=== PATIENT | male | born 1980 | race African-American/Black ===

== ENCOUNTER 2017-11-03 11:56 | Inpatient (IN) | payer OTHER ==
[2017-11-03] MEDS ORDERED: Amiodarone HCl 150 MG, Admixture Fee 1 EACH in Dextrose 5% in Water 100 ML IVPB SCH ×3 (12:15)
[2017-11-03] MEDS ORDERED: Amiodarone In Dextrose 200 ML IVPB SCH (12:15)
[2017-11-03] MEDS ORDERED: Amiodarone HCl 450 MG, Admixture Fee 1 EACH in Dextrose 5% in Water 250 ML IVPB SCH ×3 (12:30)
[2017-11-03 12:46] LABS: #Eosinphils 0.3 thou/uL (0.0-0.7); #Lymphocytes 2.1 thou/uL (1.20-3.40); #Monocytes 0.9 thou/uL (0.11-0.59); #Neutrophils 3.7 thou/uL (1.40-6.50); %Basophils 0.6 % (0.0-1.0); %Eosinophils 4.5 % (0.0-10.0); %Monocytes 12.9 % (0.0-10.0); Mean Corpuscular HGB CONC 32.8 g/dL (32.0-36.0); Mean Corpuscular Hemoglobin 30.6 pg (27.0-31.0); Mean Corpuscular Volume 93.5 fl (80.0-94.0); Mean Platelet Volume 7.3 fL (7.4-10.4); Platelet Count 319 thou/uL (130-400); RBC Distribution Width 13.2 % (11.5-14.5); Red Blood Cell (RBC) Count 4.56 mill/uL (4.70-6.10)
--- NOTE | 2017-11-03 12:57 | RAD ---
CHEST 1 VIEW: HISTORY: Chest pain. COMPARISON: Chest 1 view 03/13/17. FINDINGS: Exam is limited due to technique. No focal airspace consolidation, pneumothorax, or effusion. IMPRESSION: No acute intrathoracic abnormality. POS: [facility]
[2017-11-03 13:09] LABS: Troponin I 0.011 ng/mL (< 0.028)
[2017-11-03 13:13] LABS: ALT (SGPT) 20 U/L (8-55); AST (SGOT) 29 U/L (5-34); Albumin 4.2 g/dL (3.5-5.0); Alkaline Phosphatase 59 U/L (40-150); Anion Gap 15 mmol/L (10-20); BUN (Urea Nitrogen) 38 mg/dL (8.9-20.6); Bilirubin, Total 0.8 mg/dL (0.2-1.2); CK (CPK) 589 U/L (30-200); Calc. Creatinine Clearance 0 mL/min (70-130); Calcium 10.5 mg/dL (7.8-10.44); Carbon Dioxide 27 mmol/L (22-29); Chloride 98 mmol/L (98-107); Estimated GFR-MDRD 57; Globulin 3.6 g/dL (2.4-3.5); Glucose 127 mg/dL (70-105); Potassium 3.9 mmol/L (3.5-5.1); Protein, Total 7.8 g/dL (6.0-8.3); Sodium 136 mmol/L (136-145)
[2017-11-03 13:19] LABS: Digoxin 0.71 ng/mL (0.8-2.0)
[2017-11-03 15:20] LABS: Amphetamine Not Detected (NotDetected); Barbiturates Screen Not Detected (NotDetected); Benzodiazepine Screen Not Detected (NotDetected); Cocaine Metabolite Screen Not Detected (NotDetected); Medtox Control Line Valid? VALID (VALID); Medtox Reader # READER 4; Methadone Not Detected (NotDetected); Methamphetamine Not Detected (NotDetected); Opiate Screen Not Detected (NotDetected); Oxycodone Screen Not Detected (NotDetected); Phencyclidine (PCP) Not Detected (NotDetected); THC/Cannabinoid Screen Not Detected (NotDetected); Tricyclic Screen Not Detected (NotDetected)
[2017-11-03] MEDS ORDERED: Milk Of Magnesia 30 ML UDCUP PO PRN (15:29)
[2017-11-03] MEDS ORDERED: Acetaminophen 325 MG TAB PO PRN (15:29)
[2017-11-03] MEDS ORDERED: Mag-Al 1200 mg/1200 mg/30 ML UDCUP PO PRN (15:29)
[2017-11-03 15:37] VITALS: BMI 47.2
--- NOTE | 2017-11-03 16:27 | HP ---
PRIMARY CARE PHYSICIAN: Dr. Jhonny Olmedo. CHIEF COMPLAINT: Chest pain and palpitations. HISTORY OF PRESENT ILLNESS: Mr. 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 He says this was diagnosed about a year and a half ago. Tra renee was doing fine until recently when he began having noticing that his blood pressure was running joanna y low when he checked it on his blood pressure machine and he also noted that his heart rate seemed t o be fast and regular. He then began having palpitations and feeling a sharp pain in the left side o f his chest. He rated it at about 9/10. He says these pains last anywhere from 2-3 minutes. There were nonradiating. He was having some shortness of breath associated with it, but no nausea, no vomi ting associated. He came to the emergency room where he was found to have a sinus rhythm but with qu ite a few PVCs and bigeminy and for this reason, he is being placed in observation. Currently, ioana olguin's heart rate is noted to jump up with just very minimal exertion up into the 120 range and then it quickly falls back to normal. When asked what his last ejection fraction is, he says he does not kn ow. He is currently enrolled in a medical study for Entresto where he is blinded to what his echo re sults and other treatments; however, he does know the dose of the Entresto that he is on. REVIEW OF SYSTEMS: CONSTITUTIONAL: There have been no fevers, chills. No night sweats, no weight l oss. HEENT: No headaches. He has had some dizziness, slight feeling lightheaded. No sore throat, no rhinorrhea, no neck pain, no adenopathy. PULMONARY: No hemoptysis, no cough, no wheezing. CARDI OVASCULAR: As of history of present illness. He has noted increasing orthopnea where he says when tra renee lays flat he does feel short of breath. He has also noted increasing lower extremity edema. GASTR OINTESTINAL: He denies any nausea, no vomiting, no change in bowels. GENITOURINARY: No urinary geovani quency, hematuria, no hesitancy. NEUROLOGIC: No focal weakness, numbness, no seizures. PSYCHIATRIC : No symptoms of anxiety or depression. SKIN AND INTEGUMENT: No skin changes. No rash. 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 He says isabella t he does not have hypertension, although this is listed in his chart. He is very frustrated with th is and once this removed from his record. PAST SURGICAL HISTORY: He has had shoulder surgery, hernia surgery, retina blastoma surgery as well as a heart catheterization. He does not know the results of this because he says it was under unusua l circumstances at [facility] where they actually denied him a heart catheterization. ALLERGIES: PENICILLIN, MORPHINE and SULFA. SOCIAL HISTORY: He is a nonsmoker and nondrinker. He does not have any children. He is single. FAMILY HISTORY: Negative for any inheritable diseases. CURRENT MEDICATIONS: Include Entresto 97/103 mg twice a day, digoxin 0.125 mg daily, furosemide 40 m g, he says this was recently increased to 2 tablets a day, allopurinol 300 mg daily, Trintellix 20 mg daily, metolazone 2.5 mg a day, carvedilol 25 mg twice daily, gabapentin 300 mg t.i.d. and aspirin 8 1 mg a day. PHYSICAL EXAMINATION: GENERAL: He is alert and oriented. He appears to be in no acute distress. VITAL SIGNS: Heart rate is ranging anywhere from 80 to 110-120, blood pressure was 104/70, respirato ry rate is 16, and he is afebrile. HEENT: Pupils are equal and reactive. Extraocular muscles are intact. His sclerae are anicteric. Pupils, on the right, he does have some irregularity in the size of the pupil as well; however, the e ye movements are symmetric. NECK: No adenopathy, no bruits. LUNGS: Clear to auscultation. There is no wheezing, no rales. CARDIOVASCULAR: He has a normal S1 and S2. I do not appreciate an S3 or S4. No murmurs, clicks or rubs. ABDOMEN: Soft, nontender, and nondistended. Positive for bowel sounds. No rebound, no guarding. EXTREMITIES: He has got 1+ pedal edema. NEUROLOGICAL: Exam is nonfocal. LABORATORY DATA AND IMAGING DATA: White blood cell count 7, hemoglobin 14, hematocrit is 42.6, and p latelet count is 319. Sodium 136, potassium 3.9, chloride is 98, CO2 is 27, BUN of 38, creatinine 1. 67, glucose is 127. Digoxin level 0.71. His EKG is sinus with frequent PVCs. ASSESSMENT AND PLAN: This is a pleasant 37-year-old gentleman that presents to the emergency room wi th palpitations. He also has a known history of cardiomyopathy as well as chronic kidney disease. H e will be placed in observation and monitored on telemetry. His potassium is normal, but we have not yet gotten a magnesium level. Therefore, we will check this and consult Cardiology for further conor mmendations. We will also continue him on his usual home medications as well as deep vein thrombosis and gastrointestinal prophylaxis.
[2017-11-03 17:07] LABS: Troponin I 0.016 ng/mL (< 0.028)
[2017-11-03 19:52] LABS: Troponin I Less than 0.010 ng/mL (< 0.028)
[2017-11-03] MEDS ORDERED: Potassium Chloride 20 MEQ TAB PO SCH (20:00)
[2017-11-03] MEDS: Gabapentin 300 MG CAP PO SCH (20:22)
[2017-11-03] MEDS: Carvedilol 25 MG TAB PO SCH (20:22)
[2017-11-03] MEDS: Allopurinol 300 MG TAB PO SCH (20:30)
[2017-11-03] MEDS: SACUBITRIL PO SCH (20:30)
[2017-11-03] MEDS: VALSARTAN PO SCH (20:30)
[2017-11-03] MEDS ORDERED: VALSARTAN PO SCH (21:00)
[2017-11-03] MEDS ORDERED: SACUBITRIL PO SCH (21:00)
--- NOTE | 2017-11-04 02:02 | HP ---
DATE OF ADMISSION: 11/03/2017 REASON FOR ADMISSION: Increasing palpitations, PVCs. HISTORY OF PRESENT ILLNESS: Mr. Sherly Izaguirre is a very pleasant 37-year-old gentleman, a patient of Dr. Vahid Levine. The patient was diagnosed with a cardiomyopathy in the past. He had been seen by Dr. Barrow, treated w ith carvedilol and later Entresto. The patient initially attempted apparently to wear a LifeVest, bu t we had a lot of trouble fitting him with a LifeVest. Therefore, ultimately he was treated medicall y and observed, the ventricular function improved. The patient had a stress test showing no focal ischemia. The patient was noted to have increasing fluid retention, recently seen by Dr. Levine in the office. He had increased amount of furosemide dose and also Zaroxolyn was added. The patient started having increasing amount of palpitations the last few days and finally came to the emergency room where he was found to have marked increase in PVCs. He was given a single dose of amiodarone and has been bro ught in for observation. The plan was to do an echocardiogram and if the ejection fraction is low, p roceed with defibrillator implant. PAST MEDICAL HISTORY: 1. Dilated cardiomyopathy. 2. Hypertension. PAST SURGICAL HISTORY: Shoulder surgery, hernia surgery. OUTPATIENT MEDICATIONS: 1. Aspirin. 2. Carvedilol 25 mg twice a day. 3. Digoxin 0.125 mg daily. 4. Entresto 49/51 twice daily. 5. Lasix. 6. Sertraline. 7. Aldactone 25 mg twice a day. ALLERGIES: AMOXICILLIN, PENICILLIN, and SULFA. SOCIAL HISTORY: History of substance abuse. Please see the chart. FAMILY HISTORY: Noncontributory. REVIEW OF SYSTEMS: Constitutional: He is very overweight. No weight loss. Vision: No changes. H earing: No changes. Pulmonary: No cough or wheezing. Gastrointestinal: No nausea, vomiting, or d iarrhea. Skin: No rashes. Neurologic: No unilateral weakness or numbness. Psychiatric: No unusu al depression or anxiety. Hematologic: No unusual bruising. Genitourinary: No burning with urinat ion. PHYSICAL EXAMINATION: GENERAL: This is a pleasant 6 feet 3 inches tall, 378 pounds gentleman, alert and oriented, very art iculate. VITAL SIGNS: His blood pressure is 123/62, pulse 67, now it is regular. EYES: Sclerae nonicteric. MOUTH: Mucous membranes moist. NECK: Supple, no lymphadenopathy. LUNGS: Clear, no wheezing, rales or rhonchi. ABDOMEN: Obese, nontender, no hepatosplenomegaly. EXTREMITIES: Warm, dry, no clubbing, no cyanosis. There is no edema. LABORATORY AND X-RAY FINDINGS: Creatinine level is 1.67, previously is 1.47. Calcium level is 10.5, which is elevated. BNP less than 10. Troponin less than 0.010. EKG, sinus rhythm with very frequent PVCs initially. ASSESSMENT: 1. Dilated cardiomyopathy. 2. History of hypertension. 3. Increased premature ventricular contractions, multiple, on admission EKG. 4. Probably somewhat volume depleted. PLAN: 1. Hold diuretic therapy. 2. Echocardiogram to be done. 3. We will give potassium. 4. Check magnesium level. If it is low, we will give magnesium. 5. Repeat echo. If the patient has a low ejection fraction, defibrillator implantation would be ind icated. Dr. Levine will resume care tomorrow.
[2017-11-04 05:31] LABS: Anion Gap 16 mmol/L (10-20); BUN (Urea Nitrogen) 34 mg/dL (8.9-20.6); Calc. Creatinine Clearance 147 mL/min (70-130); Calcium 9.8 mg/dL (7.8-10.44); Carbon Dioxide 26 mmol/L (22-29); Cardiac Risk 7.1 (Less than 4.5); Chloride 98 mmol/L (98-107); Cholesterol 240 mg/dl (< 200 Desired); Estimated GFR-MDRD 56; Glucose 158 mg/dL (70-105); HDL Cholesterol 34 mg/dL (>60 Neg Risk); LDL Cholesterol, Calculated 151 mg/dL; Potassium 3.9 mmol/L (3.5-5.1); Sodium 136 mmol/L (136-145); Triglycerides 273 mg/dL (Less than 150)
[2017-11-04] MEDS ORDERED: Furosemide 80 MG TAB PO SCH (07:30)
[2017-11-04] MEDS ORDERED: Metolazone 2.5 MG TAB PO SCH (08:30)
[2017-11-04] MEDS ORDERED: Allopurinol 300 MG TAB PO SCH (09:00)
[2017-11-04] MEDS: Digoxin 0.125 MG TAB PO SCH (09:23)
[2017-11-04] MEDS: Gabapentin 300 MG CAP PO SCH ×3 (09:23→20:27)
[2017-11-04] MEDS: Aspirin 81 mg Enteric Coated Tablet PO SCH (09:25)
[2017-11-04] MEDS: Enoxaparin Sodium 40 MG/0.4 ML SYRINGE SC SCH (09:25)
[2017-11-04] MEDS: Carvedilol 25 MG TAB PO SCH ×2 (09:25→20:27)
[2017-11-04] MEDS: VALSARTAN PO SCH ×2 (09:27→20:56)
[2017-11-04] MEDS: SACUBITRIL PO SCH ×2 (09:27→20:56)
--- NOTE | 2017-11-04 09:40 | PDOC.PN ---
- Subjective Encounter Start Date: 11/04/17 Encounter Start Time: 09:37 Patient seen and examined. No new complaints. No overnight events - Objective Resuscitation Status: Resuscitation Status FULL:Full Resuscitation MAR Reviewed: Yes Vital Signs & Weight: Vital Signs (12 hours) Temp Pulse Resp BP Pulse Ox 11/04/17 09:23 84 11/04/17 08:00 97.5 F L 71 18 153/87 H 96 11/04/17 03:50 97.5 F L 74 16 116/64 94 L Weight Weight 376 lb 4.8 oz I&O: 11/03/17 11/04/17 11/05/17 06:59 06:59 06:59 Intake Total 780 Output Total 0 Balance 780 Result Diagrams: 11/03/17 12:25 11/04/17 04:45 EKG Reviewed by me: Yes (Tele SR, int PVCs) Phys Exam - Physical Examination Constitutional: NAD Respiratory: no wheezing, no rales, no rhonchi, clear to auscultation bilateral Cardiovascular: RRR, no rub no heaves/pulsations Gastrointestinal: soft, non-tender, no distention, positive bowel sounds Musculoskeletal: no edema Neurological: non-focal, normal sensation, moves all 4 limbs Psychiatric: normal affect, A&O x 3 Dx/Plan - Plan DVT proph w/lovenox, DVT proph w/SCDs IMPRESSION: 1. Palpitations/Freq PVCs 2. Cardiomyopathy/Chronic systolic & diastolic heart failure - repeat Echo pending 3. Morbid Obesity BMI 47 4. HTN 5. CKD 3 PLAN: * Cont home meds * Resume Trintellix * Await Echo * Await Cardio input * Cont to monitor * Cont current meds as below * Diuretics on hold Review of Systems - Review of Systems Cardiovascular: negative: chest pain, palpitations, orthopnea, paroxysmal nocturnal dyspnea, edema, light headedness Gastrointestinal: negative: Nausea, Vomiting, Abdominal Pain, Diarrhea, Constipation, Melena, Hematochezia - Medications/Allergies Allergies/Adverse Reactions: Allergies Allergy/AdvReac Type Severity Reaction Status Date / Time amoxicillin Allergy Verified 05/26/16 08:40 morphine Allergy Verified 05/26/16 08:40 Penicillins Allergy Verified 05/26/16 08:40 Sulfa (Sulfonamide Allergy Verified 05/26/16 08:40 Antibiotics) Medications: Current Medications Acetaminophen (Tylenol) 650 mg PO Q4H PRN PRN Reason: Headache/Fever or Pain Al Hydroxide/Mg Hydroxide (Maalox) 15 ml PO Q4H PRN PRN Reason: Heartburn or Indigestion Allopurinol (Zyloprim) 300 mg PO 2100 [facility] Last Admin: 11/03/17 20:30 Dose: 300 mg Aspirin (Ecotrin) 81 mg PO DAILY [facility] Last Admin: 11/04/17 09:25 Dose: 81 mg Carvedilol (Coreg) 25 mg PO BID [facility] Last Admin: 11/04/17 09:25 Dose: 25 mg Digoxin (Lanoxin) 0.125 mg PO DAILY [facility] Last Admin: 11/04/17 09:23 Dose: 0.125 mg Enoxaparin Sodium (Lovenox) 40 mg SC 0900 [facility] Last Admin: 11/04/17 09:25 Dose: 40 mg Gabapentin (Neurontin) 300 mg PO TID [facility] Last Admin: 11/04/17 09:23 Dose: 300 mg Lactulose (Lactulose) 20 gm PO DAILYPRN PRN PRN Reason: Constipation Magnesium Hydroxide (Milk Of Magnesium) 30 ml PO DAILYPRN PRN PRN Reason: Constipation Non-Formulary Medication (Vortioxetine Hydrobromide [Trintellix]) 20 mg PO Q24H [facility] Sacubitril 49 Mg/Valsartan 51 Mg ( Entresto) Tablet 0 each PO BID [facility] Last Admin: 11/04/17 09:27 Dose: 1 each
[2017-11-04] MEDS: Vortioxetine Hydrobromide [Trintellix] 20 MG PO SCH (10:29)
--- NOTE | 2017-11-04 13:53 | PDOC.CTH ---
Cardiology Progress Note - Subjective he is doing well. He denies any more palpitations. - Objective Vital Signs Temp Pulse Resp BP Pulse Ox 11/04/17 11:48 98.1 F 74 16 128/62 94 L 11/04/17 09:23 84 11/04/17 08:00 97.5 F L 71 18 153/87 H 96 11/04/17 03:50 97.5 F L 74 16 116/64 94 L Weight 376 lb 4.8 oz 11/03/17 11/04/17 11/05/17 06:59 06:59 06:59 Intake Total 780 Output Total 0 Balance 780 - Physical Examination General/Neuro: alert & oriented x3, NAD Neck: no JVD present Lungs: CTA, unlabored respirations Heart: RRR Abdomen: NT/ND Extremities: other: (no edema.) - Telemetry Telemetry Rhythm: NSR, PVC's - Labs Result Diagrams: 11/03/17 12:25 11/04/17 04:45 Troponin/CKMB CK-MB (CK-2) 4.0 ng/mL (0-6.6) 11/03/17 12:25 Troponin I Less than 0.010 ng/mL (< 0.028) 11/03/17 19:21 - Assessment/Plan 1. Dilated CAm. 2. Non ischemic CM EF at 30-35% on echo done today. 3. HTN PLAN: - Class 1 recommendation for an AICD. I spoke with him and both his parents who were in the room today and they agree to proceed. Will put in an EP consult for Dr. Garcia. - Continue other meds. - He has noticed a little lightheadedness and a mils increase in his creatinine from his increased dose of lasix. He states he felt much better after doubling up on lasix and adding metolazone but he then started to feel a little lightheaded. Will ask him to go back to his regular lasix dose now but will give a little fluid back today. - Likely AICD in the next [address] Garcia.
[2017-11-04] MEDS ORDERED: Sodium Chloride 0.9% 1,000 ML IV SCH (14:00)
[2017-11-04] MEDS: Allopurinol 300 MG TAB PO SCH (20:27)
--- NOTE | 2017-11-04 23:25 | CON ---
ELECTROPHYSIOLOGY CONSULTATION REPORT DATE OF CONSULTATION: 11/04/2017 REFERRING PHYSICIAN: Dr. Levine. I am seeing Mr. Izaguirre at our [facility] telemetry floor as an electrophysiology loss prevention consultant. His problems are: 1. Chronic systolic congestive heart failure with nonischemic cardiomyopathy. A. History of reduced LVEF on an echo on 05/17/2016 at 15% to 20%. B. Follow up 2D echocardiogram on 11/03/2017 reveals 30% to 35%, mild MR, mild TR. 2. Two frequent PVCs and palpitations. 3. Morbid obesity with a BMI of 46. 4. History of polysubstance abuse in the past, none recent. 5. History of hypertension. ALLERGIES: AMOXICILLIN, MORPHINE, PENICILLIN and SULFA. MEDICATIONS: Prior to admission revealed aspirin, digoxin, furosemide, Entresto 97/103 one tablet tw ice a day, carvedilol 25 twice a day, allopurinol 300 mg daily, metolazone, gabapentin and Trintellix daily. SUBJECTIVE: Mr. Izaguirre is here with symptoms of palpitations. He was noted to have some increasing f luid retention recently followed by Dr. Levine as an outpatient, he was diuresed. Eventually, his PV Cs seem to have been increased quite a bit and hence was admitted for observation. He did not pass o ut, and he did not have any sustained palpitations or sustained tachyarrhythmias. No stroke-like sym ptoms. No neurological deficits. No fever, chills or cough. REVIEW OF SYSTEMS: Rest of the 12-point systems are otherwise unremarkable. PAST MEDICAL HISTORY: As above. SOCIAL HISTORY: The patient has history of polysubstance abuse, but current tox screen is all negati ve. FAMILY HISTORY: Negative for inheritable diseases. PAST SURGICAL HISTORY: Significant for shoulder surgery, hernia surgery, retinoblastoma, prior heart catheterizations, which was performed at [facility] in the past. OBJECTIVE: VITAL SIGNS: Blood pressure is 122/81, heart rate 78, respiration 16 and temperature 97.9 degrees Fa hrenheit. GENERAL: Alert and morbidly obese man in no apparent distress. NECK: Supple. Jugular veins difficult to visualize. CHEST: Coarse. No crackles. CARDIOVASCULAR: Heart sounds are distant. No murmur or gallop. Regular rate and rhythm. ABDOMEN: Benign and obese. No mass is detected. Bowel sounds are positive. EXTREMITIES: Lower extremities without edema, clubbing or cyanosis. SKIN: Without rash. DATABASE: EKGs reviewed reveals sinus rhythm, narrow complex QRS. No sinus ST-T changes. LABORATORY DATA: The toxicology panel is negative. Digoxin level is 0.71. Sodium 136, potassium 3. 9, BUN is 34 and creatinine is 1.68, increased from before. Although, his baseline was about 1.59 as well in the past. AST and ALT is 29 and 20. BNP is less than 10. Troponin level is 0.01. IMAGING DATA: Chest x-ray shows no acute intrathoracic abnormality. ASSESSMENT AND PLAN: Mr. Izaguirre is a pleasant 37-year-old -[place] man with; 1. History of chronic systolic congestive heart failure with nonischemic cardiomyopathy, had negativ e stress test in the past and possibly heart catheterization in other hospitals in the past as well. His left ventricular ejection fraction was severely reduced in a couple of years ago. Since then, guille renee was on adequate medical therapy. His ejection fraction improved, but still under 35%. We did discuss the significance of this finding. Also, his future arrhythmia risk has increased a ve ntricular ectopy as well. This could be possibly due to over diuresis, but also need to be monitored . I did discuss pros and cons about a prophylactic pacemaker defibrillator implant. He understands the potential benefit from this, but also we detailed the risk of infection, bleeding, pneumothorax, tamponade, device malfunctions, lead dislodgement, recalls, and appropriate shocks. After discussion , we agreed to proceed with the pacemaker defibrillator implant, possibly tomorrow. 2. Standard heart failure therapy, adequately controlled. 3. Mild dehydration, on fluid replantation. 4. Morbid obesity, weight loss advised.
[2017-11-05] MEDS ORDERED: Clindamycin/D5W 600 mg/50 ml Premix Bag ONE (06:57)
[2017-11-05] MEDS: Carvedilol 25 MG TAB PO SCH ×3 (08:05→20:26)
[2017-11-05] MEDS: Enoxaparin Sodium 40 MG/0.4 ML SYRINGE SC SCH (08:05)
[2017-11-05] MEDS: Digoxin 0.125 MG TAB PO SCH ×2 (08:05→11:01)
[2017-11-05] MEDS: Aspirin 81 mg Enteric Coated Tablet PO SCH ×2 (08:05→11:01)
[2017-11-05] MEDS: Gabapentin 300 MG CAP PO SCH ×3 (08:06→20:26)
[2017-11-05] MEDS ORDERED: Propofol 1,000 MG/100 ML VIAL IV ONE ×2 (08:19→08:41)
[2017-11-05] MEDS ORDERED: Midazolam HCl 2 mg/2 ml Vial ONE (08:19)
[2017-11-05] MEDS ORDERED: Lidocaine 2% Jelly 5 ML TUBE ONE (08:41)
[2017-11-05] MEDS ORDERED: Promethazine HCl 25 MG/ML VIAL SLOW IVP PRN (09:52)
[2017-11-05] MEDS ORDERED: Ondansetron HCl/PF 4 MG/2 ML Vial IVP PRN ×2 (09:52→12:32)
[2017-11-05] MEDS ORDERED: Fentanyl 100 MCG/2 ML VIAL ONE (10:05)
[2017-11-05] MEDS: SACUBITRIL PO SCH ×2 (11:00→20:26)
[2017-11-05] MEDS: VALSARTAN PO SCH ×2 (11:00→20:26)
[2017-11-05] MEDS: Vortioxetine Hydrobromide [Trintellix] 20 MG PO SCH (11:00)
[2017-11-05] MEDS ORDERED: Acetaminophen/Codeine 30-300mg Tablet PO PRN (11:45)
--- NOTE | 2017-11-05 12:09 | PDOC.PN ---
- Subjective Encounter Start Date: 11/05/17 Encounter Start Time: 11:30 Patient seen and examined. Some discomfort over the AICD site. No overnight events. s/p AICD - Objective Resuscitation Status: Resuscitation Status FULL:Full Resuscitation MAR Reviewed: Yes Vital Signs & Weight: Vital Signs (12 hours) Temp Pulse Resp BP Pulse Ox 11/05/17 11:01 77 11/05/17 10:46 97.5 F L 77 20 126/79 93 L 11/05/17 08:05 70 11/05/17 08:00 98 F 70 18 11/05/17 04:30 97.7 F 70 18 133/78 94 L Weight Weight 376 lb 4.8 oz I&O: 11/04/17 11/05/17 11/06/17 06:59 06:59 06:59 Intake Total 780 250 Output Total 0 Balance 780 250 Result Diagrams: 11/03/17 12:25 11/04/17 04:45 EKG Reviewed by me: Yes (Tele SR) Phys Exam - Physical Examination Constitutional: NAD Respiratory: no wheezing, no rhonchi Cardiovascular: RRR, no rub Gastrointestinal: soft, non-tender, positive bowel sounds Musculoskeletal: no edema Neurological: moves all 4 limbs Dx/Plan - Plan DVT proph w/SCDs IMPRESSION: 1. Palpitations/Freq PVCs 2. Cardiomyopathy/Chronic systolic & diastolic heart failure 3. Morbid Obesity BMI 47 4. HTN 5. CKD 3 PLAN: * s/p ACID * Cardio/EP following * Cont to monitor * DC planning * Cont current meds as below Review of Systems - Review of Systems Respiratory: SOB with Excertion. negative: Cough, Dry, Shortness of Breath, Hemoptysis, Pleuritic Pain, Sputum, Wheezing Cardiovascular: negative: chest pain, palpitations, orthopnea, paroxysmal nocturnal dyspnea, edema, light headedness Gastrointestinal: negative: Nausea, Vomiting, Abdominal Pain, Diarrhea, Constipation, Melena, Hematochezia - Medications/Allergies Allergies/Adverse Reactions: Allergies Allergy/AdvReac Type Severity Reaction Status Date / Time amoxicillin Allergy Verified 05/26/16 08:40 morphine Allergy Verified 05/26/16 08:40 Penicillins Allergy Verified 05/26/16 08:40 Sulfa (Sulfonamide Allergy Verified 05/26/16 08:40 Antibiotics) Medications: Current Medications Acetaminophen (Tylenol) 650 mg PO Q4H PRN PRN Reason: Headache/Fever or Pain Acetaminophen/Codeine Phosphate (Tylenol #3) 1 tab PO Q4H PRN PRN Reason: Mild Pain (1-3) Acetaminophen/Codeine Phosphate (Tylenol #3) 2 tab PO Q4H PRN PRN Reason: Moderate Pain (4-6) Al Hydroxide/Mg Hydroxide (Maalox) 15 ml PO Q4H PRN PRN Reason: Heartburn or Indigestion Allopurinol (Zyloprim) 300 mg PO 2100 [facility] Last Admin: 11/04/17 20:27 Dose: 300 mg Aspirin (Ecotrin) 81 mg PO DAILY [facility] Last Admin: 11/05/17 11:01 Dose: 81 mg Carvedilol (Coreg) 25 mg PO BID [facility] Last Admin: 11/05/17 11:01 Dose: 25 mg Digoxin (Lanoxin) 0.125 mg PO DAILY [facility] Last Admin: 11/05/17 11:01 Dose: 0.125 mg Doxycycline Hyclate (Vibramycin) 100 mg PO BID [facility] Stop: 11/12/17 09:01 Enoxaparin Sodium (Lovenox) 40 mg SC 0900 [facility] Last Admin: 11/05/17 08:05 Dose: Not Given Gabapentin (Neurontin) 300 mg PO TID [facility] Last Admin: 11/05/17 11:01 Dose: 300 mg Lactulose (Lactulose) 20 gm PO DAILYPRN PRN PRN Reason: Constipation Magnesium Hydroxide (Milk Of Magnesium) 30 ml PO DAILYPRN PRN PRN Reason: Constipation Ondansetron HCl (Pacu-Zofran) 4 mg IVP ONE PRN PRN Reason: Nausea/Vomiting Stop: 11/05/17 12:52 Vortioxetine Hydrobromide [ Trintellix] 20 Mg 0 each PO Q24HR [facility] Last Admin: 11/05/17 11:00 Dose: 1 each Sacubitril 49 Mg/Valsartan 51 Mg ( Entresto) Tablet 0 each PO BID [facility] Last Admin: 11/05/17 11:00 Dose: 1 each Promethazine HCl (Pacu-Phenergan) 6.25 mg SLOW IVP ONE PRN PRN Reason: Nausea/Vomiting Stop: 11/05/17 12:52 Sodium Chloride (Flush - Normal Saline) 10 ml IVF PRN PRN PRN Reason: Saline Flush
--- NOTE | 2017-11-05 12:20 | PDOC.CTH ---
Cardiology Progress Note - Subjective He had his AICD earlier today and is doing well. No other issues. - Objective Vital Signs Temp Pulse Resp BP Pulse Ox 11/05/17 11:01 77 11/05/17 10:46 97.5 F L 77 20 126/79 93 L 11/05/17 08:05 70 11/05/17 08:00 98 F 70 18 11/05/17 04:30 97.7 F 70 18 133/78 94 L Weight 376 lb 4.8 oz 11/04/17 11/05/17 11/06/17 06:59 06:59 06:59 Intake Total 780 250 Output Total 0 Balance 780 250 - Physical Examination General/Neuro: alert & oriented x3, NAD Neck: no JVD present Lungs: unlabored respirations Heart: RRR Abdomen: NT/ND Extremities: + edema B (Trace) - Telemetry Telemetry Rhythm: NSR - Labs Result Diagrams: 11/03/17 12:25 11/04/17 04:45 Troponin/CKMB CK-MB (CK-2) 4.0 ng/mL (0-6.6) 11/03/17 12:25 Troponin I Less than 0.010 ng/mL (< 0.028) 11/03/17 19:21 - Assessment/Plan 1. Dilated CAm. 2. Non ischemic CM EF at 30-35% on echo done today. 3. HTN 4. S/P AICD placement. PLAN: - Continue current meds. - May discharge home at any point from cardiac perspective.
[2017-11-05] MEDS ORDERED: Promethazine HCl 25 MG/ML VIAL IM/IV PRN (12:32)
[2017-11-05] MEDS ORDERED: Non-Formulary Medication 1 EACH PO PRN (12:32)
[2017-11-05] MEDS: Acetaminophen/Codeine 30-300mg Tablet PO PRN ×2 (12:51→20:25)
--- NOTE | 2017-11-05 13:52 | RAD ---
CHEST ONE VIEW: History: Defibrillator placement. Comparison: 11-03-17 FINDINGS: Cardiac silhouette is magnified and enlarged. Pulmonary vasculature is engorged with bilateral perihi lar infiltrates and reticular nodular interstitial prominence. Mediastinum is midline with a dual-jose d left subclavian cardiac electronic device. Leads overlie the right atrium and right ventricle. No e vidence of pneumothorax. IMPRESSION: 1. Left subclavian cardiac defibrillator is in good radiographic position. 2. Pulmonary vascular congestion. POS: [facility]
[2017-11-05] MEDS ORDERED: PHENYLEPHRINE-NS 100 MCG/ML 10 ML SYRINGE ONE (14:40)
[2017-11-05] MEDS ORDERED: Propofol 200 MG/20 ML VIAL ONE (14:40)
[2017-11-05] MEDS ORDERED: Glycopyrrolate 0.2 MG/ML 5 ML SYRINGE ONE (14:40)
[2017-11-05] MEDS ORDERED: ePHEDrine/0.9% NaCl/PF SYRINGE 50 mg/10 ml ONE (14:40)
[2017-11-05] MEDS ORDERED: Iopamidol 370 76% 50 ML VIAL FS ONE (15:59)
[2017-11-05] MEDS: Allopurinol 300 MG TAB PO SCH (20:26)
[2017-11-05] MEDS: Doxycycline 100 MG CAP PO SCH (20:29)
[2017-11-06 07:53] VITALS: TEMP 98.3
[2017-11-06] MEDS: Aspirin 81 mg Enteric Coated Tablet PO SCH (09:07)
[2017-11-06] MEDS: Doxycycline 100 MG CAP PO SCH (09:07)
[2017-11-06] MEDS: Carvedilol 25 MG TAB PO SCH (09:07)
[2017-11-06] MEDS: Enoxaparin Sodium 40 MG/0.4 ML SYRINGE SC SCH (09:07)
[2017-11-06] MEDS: Gabapentin 300 MG CAP PO SCH (09:07)
[2017-11-06] MEDS: Digoxin 0.125 MG TAB PO SCH (09:07)
[2017-11-06] MEDS: SACUBITRIL PO SCH (09:08)
[2017-11-06] MEDS: VALSARTAN PO SCH (09:08)
[2017-11-06] MEDS: Vortioxetine Hydrobromide [Trintellix] 20 MG PO SCH (09:09)
--- NOTE | 2017-11-06 10:50 | DIS ---
DATE OF ADMISSION: 11/03/2017 DATE OF DISCHARGE: 11/06/2017 DISCHARGE DISPOSITION: Home. FOLLOWUP: 1. Follow up with primary care physician and Dr. Jhonny Olmedo next week as scheduled. 2. Follow up with Electrophysiology and Cardiology in 2 weeks. 3. Heart Failure Clinic will be arranged. ALLERGIES: The patient is allergic to AMOXICILLIN, MORPHINE, PENICILLIN, and SULFA. The patient was seen and examined on the day of discharge, denies any new complaints. DISCHARGE MEDICATIONS: Aspirin 81 mg daily, Carvedilol 25 mg twice a day, digoxin 0.125 mg daily, do xycycline 100 mg p.o. b.i.d. for AICD antibiotic prophylaxis, Lasix 40 mg daily, gabapentin 300 mg th ree times daily, metolazone 2.5 mg daily, Entresto 97/103 one tablet b.i.d., Trintellix 20 mg daily, Tylenol #3 for pain secondary to AICD. INPATIENT CONSULTANTS: 1. Cardiology, Dr. Levine. 2. Electrophysiology, Dr. Garcia. BRIEF HOSPITAL COURSE: Patient is a 37-year-old male with chronic systolic and diastolic heart failu re, who presented to the hospital with chest discomfort along with palpitations. Please refer to the history and physical dated 11/03/[address] Mancini for further details. The patient was admitted to the hospital with a diagnosis of chest discomfort, rule out acute coronar y syndrome. His serial cardiac enzymes were normal. His telemetry monitoring showed frequent PVCs. An echocardiogram was repeated that showed ejection fraction 30%-35% range with grade 1/3 diastolic dysfunction. Electrophysiology was consulted. He underwent AICD placement yesterday. He has been c leared by Cardiology and Electrophysiology for discharge. He will continue doxycycline for prophylax is. FINAL DIAGNOSES: 1. Chest discomfort, acute coronary syndrome ruled out. 2. Palpitations with frequent PVCs, probably secondary to cardiomyopathy. The patient underwent AIC D placement. 3. Chronic systolic and diastolic heart failure, compensated. 4. Morbid obesity with a BMI of 47. 5. Hypertension. 6. Chronic kidney disease stage 3. 7. Dyslipidemia. Fasting lipid profile showed triglycerides 273 with cholesterol 240, LDL 151, HDL 34. Lifestyle modification was emphasized. Plan of care was discussed with the patient in detail. He stated understanding.
[2017-11-06 14:31] VITALS: BP 133/64
== END 2017-11-06 13:02 | disposition home or self-care (01) | DRG 227 ==
LOC: ERS 11:56 → OBSVTOIN 13:34 → 2SW 13:34
PROVIDERS: ADMIT Internal Medicine; ATTEND Internal Medicine
PROC: 0JH609Z Insertion of Cardiac Resynchronization Defibrillator Pulse Generator into Chest Subcutaneous Tissue and Fascia, Open Approach (ICD-10-PCS; principal; 2017-11-05)
PROC: 02HK3KZ Insertion of Defibrillator Lead into Right Ventricle, Percutaneous Approach (ICD-10-PCS; 2017-11-05)
PROC: 02H63KZ Insertion of Defibrillator Lead into Right Atrium, Percutaneous Approach (ICD-10-PCS; 2017-11-05)
DX: I42.0 Dilated cardiomyopathy (principal); I13.0 Hypertensive heart and chronic kidney disease with heart failure and stage 1 through stage 4 chronic kidney disease, or unspecified chronic kidney disease; I50.42 Chronic combined systolic (congestive) and diastolic (congestive) heart failure; N18.3 Chronic kidney disease, stage 3 (moderate); E66.01 Morbid (severe) obesity due to excess calories; Z68.42 Body mass index [BMI] 45.0-49.9, adult; E78.5 Hyperlipidemia, unspecified; I49.3 Ventricular premature depolarization; E86.9 Volume depletion, unspecified; E86.0 Dehydration; Z87.01 Personal history of pneumonia (recurrent)
CPT/HCPCS: 33249; 36005; 36415; 71045; 75820; 80048; 80053; 80061; 80162; 80306; 82553; 83735; 83880; 84484; 85025; 93005; 93306; 93641; 93798; 94760; 96374; C1721; C1895; C1898; J0282; J1650; J2250; J2704; J3010; J3490; J7070

== ENCOUNTER 2018-01-01 13:45 | Outpatient (CLI) | payer OTHER | END 2018-01-01 13:46 | disposition home or self-care (01) | LOC: DTY/OP 13:45 | PROVIDERS: ATTEND Surgery | DX: E66.01 Morbid (severe) obesity due to excess calories (principal) | CPT/HCPCS: 97802 ==

== ENCOUNTER 2018-01-20 10:03 | Outpatient (CLI) | payer OTHER, SELFPAY | END 2018-01-20 10:04 | disposition home or self-care (01) | LOC: DTY/OP 10:03 | PROVIDERS: ATTEND Surgery | DX: E66.01 Morbid (severe) obesity due to excess calories (principal) | CPT/HCPCS: 97802 ==

== ENCOUNTER 2018-02-19 13:03 | Outpatient (CLI) | payer OTHER ==
--- NOTE | 2018-02-19 13:55 | RAD ---
CHEST PA AND LATERAL TWO VIEWS: HISTORY: A 38-year-old male with a history of dyspnea. COMPARISON: 11/05/2017 FINDINGS: Heart size is within normal limits. Left ICD. No confluent pneumonia, overt edema, pleural effusion , or other acute process. IMPRESSION: No significant acute intrathoracic disease. Stable from prior study. POS: [facility]
== END 2018-02-19 13:04 | disposition home or self-care (01) ==
LOC: RAD 13:03
PROVIDERS: ATTEND Internal Medicine Critical Care Medicine
DX: R06.00 Dyspnea, unspecified (principal)
CPT/HCPCS: 71046

== ENCOUNTER 2018-02-26 13:56 | Outpatient (CLI) | payer OTHER | END 2018-02-26 13:57 | disposition home or self-care (01) | LOC: DTY/OP 13:56 | PROVIDERS: ATTEND Surgery | DX: E66.01 Morbid (severe) obesity due to excess calories (principal) | CPT/HCPCS: 97802 ==

== ENCOUNTER 2018-03-25 12:53 | Outpatient (CLI) | payer OTHER | END 2018-03-25 12:54 | disposition home or self-care (01) | LOC: DTY/OP 12:53 | PROVIDERS: ATTEND Surgery | DX: E66.01 Morbid (severe) obesity due to excess calories (principal) | CPT/HCPCS: 97802 ==

== ENCOUNTER 2018-04-01 19:30 | Outpatient (CLI) | payer OTHER | END 2018-04-01 19:31 | disposition home or self-care (01) | LOC: SLEEPLAB 19:30 | PROVIDERS: ATTEND Internal Medicine Critical Care Medicine | DX: G47.33 Obstructive sleep apnea (adult) (pediatric) (principal) | CPT/HCPCS: 95811 ==

== ENCOUNTER 2018-04-27 11:28 | Outpatient (CLI) | payer OTHER | END 2018-04-27 11:29 | disposition home or self-care (01) | LOC: DTY/OP 11:28 | PROVIDERS: ATTEND Surgery | DX: E66.01 Morbid (severe) obesity due to excess calories (principal); Z98.84 Bariatric surgery status | CPT/HCPCS: 97802 ==

== ENCOUNTER 2018-07-01 15:15 | Outpatient (CLI) | payer OTHER ==
[2018-07-01 15:53] LABS: #Basophils 0.1 thou/uL (0.0-0.2); #Eosinphils 0.5 thou/uL (0.0-0.7); #Lymphocytes 2.8 thou/uL (1.20-3.40); #Monocytes 1.3 thou/uL (0.11-0.59); #Neutrophils 6.6 thou/uL (1.40-6.50); %Basophils 0.7 % (0.0-1.0); %Eosinophils 4.4 % (0.0-10.0); %Lymphocytes 25.2 % (21.0-51.0); %Monocytes 11.4 % (0.0-10.0); %Neutrophils 58.3 % (42.0-75.0); Hemoglobin 13.3 g/dL (14.0-18.0); Mean Corpuscular HGB CONC 33.9 g/dL (32.0-36.0); Mean Corpuscular Hemoglobin 30.7 pg (27.0-31.0); Mean Corpuscular Volume 90.4 fL (78.0-98.0); Mean Platelet Volume 7.8 fL (7.4-10.4); Platelet Count 305 thou/uL (130-400); RBC Distribution Width 13.4 % (11.5-14.5); Red Blood Cell (RBC) Count 4.33 mill/uL (4.70-6.10); White Blood Cell (WBC) Count 11.3 thou/uL (4.8-10.8)
[2018-07-01 16:05] LABS: Hemoglobin A1c 6.3 % (4.0-6.0)
[2018-07-01 16:13] LABS: ALT (SGPT) 22 U/L (8-55); AST (SGOT) 29 U/L (5-34); Albumin 4.2 g/dL (3.5-5.0); Alkaline Phosphatase 68 U/L (40-150); Anion Gap 16 mmol/L (10-20); BUN (Urea Nitrogen) 28 mg/dL (8.9-20.6); Bilirubin, Direct 0.1 mg/dL (0.1-0.3); Bilirubin, Total 0.6 mg/dL (0.2-1.2); Calc. Creatinine Clearance 0 mL/min (70-130); Carbon Dioxide 27 mmol/L (22-29); Chloride 96 mmol/L (98-107); Estimated GFR-MDRD 57; Globulin 3.3 g/dL (2.4-3.5); Glucose 91 mg/dL (70-105); Potassium 3.9 mmol/L (3.5-5.1); Protein, Total 7.5 g/dL (6.0-8.3); Sodium 135 mmol/L (136-145)
[2018-07-01 16:52] LABS: Uric Acid 6.9 mg/dL (3.5-7.2)
--- NOTE | 2018-07-01 17:15 | RAD ---
CHEST ONE VIEW 07/01/18 HISTORY: Preoperative exam. COMPARISON: 02/19/18. FINDINGS: Stable left sided defibrillator. Normal cardiac silhouette. The pulmonary vessels are slightly promin ent. No consolidation or mass. No pneumothorax or osseous abnormalities. IMPRESSION: No acute cardiopulmonary process. POS: [facility]
== END 2018-07-01 15:16 | disposition home or self-care (01) ==
LOC: LABBT 15:15
PROVIDERS: ATTEND Surgery
DX: Z01.818 Encounter for other preprocedural examination (principal); M1A.09X0 Idiopathic chronic gout, multiple sites, without tophus (tophi); R59.0 Localized enlarged lymph nodes; E66.01 Morbid (severe) obesity due to excess calories
CPT/HCPCS: 71046; 80053; 80076; 83036; 84550; 85025; 93005; 93010

== ENCOUNTER 2018-07-02 15:15 | Inpatient (IN) | payer OTHER ==
[2018-07-01 15:47] VITALS: BMI 50.1
[2018-07-09] MEDS ORDERED: Levofloxacin 500 mg/D5W 100 ml Premix Bag ONE (06:43)
[2018-07-09] MEDS ORDERED: Heparin 5,000 UNITS/ML VIAL ONE (06:43)
[2018-07-09] MEDS ORDERED: Bupivacaine/Epinephrine 0.25% 30 ML VIAL ONE (06:52)
== END 2018-07-09 08:05 | disposition home or self-care (01) | DRG 641 ==
LOC: SURG A 07-09 05:41
PROVIDERS: ADMIT Surgery; ATTEND Surgery
DX: E66.01 Morbid (severe) obesity due to excess calories (principal); I42.9 Cardiomyopathy, unspecified; I50.20 Unspecified systolic (congestive) heart failure; Z53.8 Procedure and treatment not carried out for other reasons; Z95.810 Presence of automatic (implantable) cardiac defibrillator; Z68.43 Body mass index [BMI] 50.0-59.9, adult; F32.9 Major depressive disorder, single episode, unspecified; I11.0 Hypertensive heart disease with heart failure; Z86.79 Personal history of other diseases of the circulatory system; Z87.891 Personal history of nicotine dependence; Z88.1 Allergy status to other antibiotic agents; Z88.5 Allergy status to narcotic agent; Z88.0 Allergy status to penicillin; Z88.2 Allergy status to sulfonamides
CPT/HCPCS: J1644; J1956

== ENCOUNTER 2018-07-15 07:47 | Inpatient (IN) | payer OTHER ==
[2018-07-15] MEDS ORDERED: Heparin 5,000 UNITS/ML VIAL ONE (08:34)
[2018-07-15] MEDS ORDERED: Levofloxacin 500 mg/D5W 100 ml Premix Bag ONE (08:34)
[2018-07-15] MEDS ORDERED: Fentanyl 100 MCG/2 ML VIAL ONE ×2 (08:46→12:39)
[2018-07-15] MEDS ORDERED: Midazolam HCl 2 mg/2 ml Vial ONE (09:19)
[2018-07-15] MEDS ORDERED: diphenhydrAMINE 50 MG/ML VIAL IVP PRN (11:44)
[2018-07-15] MEDS ORDERED: Ondansetron HCl/PF 4 MG/2 ML Vial IVP PRN ×3 (11:44→12:33)
[2018-07-15] MEDS ORDERED: Dextrose 5% in Water 1,000 ML IV PRN (11:44)
[2018-07-15] MEDS ORDERED: hydrALAZINE 20 MG/ML VIAL SLOW IVP PRN (11:44)
[2018-07-15] MEDS ORDERED: Dextrose 50% Abboject 50 ML SYRINGE SLOW IVP PRN (11:44)
[2018-07-15] MEDS ORDERED: Hydrocodone-Acetamin 15 ML UDCUP PO PRN (11:44)
[2018-07-15] MEDS ORDERED: Promethazine HCl 25 MG/ML VIAL IM PRN ×3 (11:44→12:33)
--- NOTE | 2018-07-15 12:04 | OP ---
DATE OF PROCEDURE: 07/15/2018 PREOPERATIVE DIAGNOSIS: Morbid obesity. SURGEON: Jimmy Stacy M.D. PROCEDURE PERFORMED: Laparoscopic sleeve gastrectomy and esophagogastroscopy. INDICATIONS: A 38-year-old male, morbidly obese, who has attempted multiple weight loss programs wit hout success. FINDINGS: A 38-Syriac bougie used. PROCEDURE IN DETAIL: After informed consent was obtained, the patient was taken to the operating alec m and given general endotracheal anesthesia, placed in the supine position. Abdomen was prepped and draped in usual fashion. Local anesthesia infiltrated subcutaneously and deep and a 12-mm incision w as performed approximately 8 inches above the xiphoid slightly to the left. Veress needle inserted. Drop test performed. Pneumoperitoneum was created to a volume of 2 liters of carbon dioxide. Utili zing a bladeless 12-mm trocar and 0-degree laparoscope, direct visual entry into the abdominal cavity was performed. Pneumoperitoneum was created to a pressure of 15 mmHg and the patient placed in stee p reverse Trendelenburg position. Jocelyn liver retractor inserted. Left lobe of liver retracted superiorly. Pylorus identified. A 12-mm port placed on the right beneath it and two 12s placed left subcostal. The omentum was taken off the greater curvature 5 cm from the pylorus utilizing the Liga Sure. Short gastrics divided with the LigaSure and the left crura defined with the LigaSure. A 38-F rench bougie inserted, directed into the antrum. The linear 60 mm green load stapler used to divide the antrum to the bougie. Another green load was used along the bougie due to thickness of the stoma ch. Then, 2 golds were used and then a couple of blues at the end. Intraoperative endoscopy was the n performed. The video endoscope inserted under direct vision and advanced into the sleeve. The sta ple line inspected. There is no bleeding. Staple line then tested by inflating the stomach with pre ssurized air under water. There was no air leak. Stomach decompressed. Scope removed. The remnant stomach removed from the abdomen through the left lateral port site. The fascia closed with 0 Vicry l suture and the GraNee needle. Trocars and retractors removed. The skin closed with interrupted 4- 0 Rapide. Dermabond applied. The patient tolerated the procedure well and was transferred to [facility] in good condition. Sponge and needle count verified correct x2.
[2018-07-15] MEDS ORDERED: Bupivacaine/Epinephrine 0.25% 30 ML VIAL ONE (12:27)
[2018-07-15] MEDS ORDERED: Albuterol Sulfate HFA (OR ONLY) ONE (12:27)
[2018-07-15] MEDS ORDERED: Promethazine HCl 25 MG/ML VIAL SLOW IVP PRN (12:32)
[2018-07-15] MEDS ORDERED: Ketorolac Tromethamine 30 MG/ML VIAL IVP PRN (12:32)
[2018-07-15] MEDS ORDERED: Meperidine HCl/PF 25 MG/ML VIAL SLOW IVP PRN (12:32)
[2018-07-15] MEDS ORDERED: HYDROmorphone 2 MG/ML VIAL SLOW IVP PRN (12:32)
[2018-07-15] MEDS ORDERED: Naloxone HCl 0.4 mg/ml Vial IV PRN (12:33)
[2018-07-15] MEDS ORDERED: fentaNYL Citrate/PF 2,000 MCG in Sodium Chloride 0.9% 60 ML IV PRN (12:33)
[2018-07-15] MEDS ORDERED: diphenhydrAMINE 25 MG CAP PO PRN (12:33)
[2018-07-15] MEDS ORDERED: Zolpidem Tartrate 5 MG TAB PO PRN (12:33)
--- NOTE | 2018-07-15 13:19 | RAD ---
AP VIEW CHEST: 07/15/2018 HISTORY: Central line placement. Evaluate for position and possible pneumothorax. COMPARISON: 11/05/2017 FINDINGS: AP view chest demonstrates placement of a right jugular central line, with the distal tip overlying t he superior vena cava. No evidence of post procedure pneumothorax is seen. There is a dual-lead intracardiac defibrillator. Mild cardiomegaly and pulmonary vascular congestion is seen. An area of scar is seen in the left lung base. IMPRESSION: Recently placed right jugular central line is in good position. POS: [facility]
[2018-07-15 14:31] VITALS: BMI 39.5
[2018-07-15] MEDS: D5 1/2 NS w/20 mEq KCL 1,000 ML IV SCH ×2 (15:05→20:50)
[2018-07-15] MEDS ORDERED: Ondansetron HCl/PF 4 MG/2 ML Vial ONE (15:12)
[2018-07-15] MEDS ORDERED: ePHEDrine/0.9% NaCl/PF SYRINGE 50 mg/10 ml ONE (15:12)
[2018-07-15] MEDS ORDERED: Succinylcholine Chloride 20 MG/ML 10 ml SYRINGE FS ONE (15:12)
[2018-07-15] MEDS ORDERED: Glycopyrrolate 0.2 MG/ML 5 ML SYRINGE ONE (15:12)
[2018-07-15] MEDS ORDERED: PHENYLEPHRINE-NS 100 MCG/ML 10 ML SYRINGE ONE (15:12)
[2018-07-15] MEDS ORDERED: Lidocaine 1% PF 5 ML VIAL ONE (15:12)
[2018-07-15] MEDS ORDERED: PROVENTIL INHALER 6.7 G (200 INHALATIONS) ONE (15:12)
[2018-07-15] MEDS ORDERED: PROPOFOL 200 MG/20 ML VIAL ONE (15:12)
[2018-07-15] MEDS ORDERED: Metoclopramide HCl 10 MG/2 ML VIAL ONE (15:12)
[2018-07-15] MEDS: Acetaminophen 1,000 MG in Premix Bag 1 BAG IVPB PRN (17:10)
[2018-07-15] MEDS: Ketorolac Tromethamine 30 MG/ML VIAL IVP PRN (17:11)
[2018-07-15] MEDS: diphenhydrAMINE 50 MG/ML VIAL IM/IV PRN (21:36)
[2018-07-16] MEDS: diphenhydrAMINE 50 MG/ML VIAL IM/IV PRN ×3 (01:53→09:55)
[2018-07-16] MEDS: Ketorolac Tromethamine 30 MG/ML VIAL IVP PRN (01:59)
[2018-07-16] MEDS: Acetaminophen 1,000 MG in Premix Bag 1 BAG IVPB PRN (01:59)
[2018-07-16] MEDS: Cepastat Lozenges 1 LOZ PO PRN ×5 (02:36→12:33)
[2018-07-16] MEDS: D5 1/2 NS w/20 mEq KCL 1,000 ML IV SCH ×3 (04:44→16:51)
[2018-07-16 05:50] LABS: Anion Gap 10 mmol/L (10-20); BUN (Urea Nitrogen) 18 mg/dL (8.9-20.6); Calc. Creatinine Clearance 117 mL/min (70-130); Calcium 8.8 mg/dL (7.8-10.44); Carbon Dioxide 26 mmol/L (22-29); Chloride 100 mmol/L (98-107); Estimated GFR-MDRD 55; Glucose 96 mg/dL (70-105); Potassium 4.3 mmol/L (3.5-5.1); Sodium 132 mmol/L (136-145)
[2018-07-16 05:52] LABS: #Eosinphils 0.1 thou/uL (0.0-0.7); #Lymphocytes 1.9 thou/uL (1.20-3.40); #Monocytes 1.1 thou/uL (0.11-0.59); #Neutrophils 8.7 thou/uL (1.40-6.50); %Eosinophils 0.7 % (0.0-10.0); %Lymphocytes 16.5 % (21.0-51.0); %Monocytes 9.2 % (0.0-10.0); %Neutrophils 73.6 % (42.0-75.0); Hemoglobin 12.4 g/dL (14.0-18.0); Mean Corpuscular Hemoglobin 29.9 pg (27.0-31.0); Mean Corpuscular Volume 93.4 fL (78.0-98.0); Mean Platelet Volume 7.4 fL (7.4-10.4); Platelet Count 296 thou/uL (130-400); RBC Distribution Width 13.1 % (11.5-14.5); Red Blood Cell (RBC) Count 4.15 mill/uL (4.70-6.10); White Blood Cell (WBC) Count 11.8 thou/uL (4.8-10.8)
[2018-07-16] MEDS ORDERED: Enoxaparin Sodium 40 MG/0.4 ML SYRINGE SC SCH (09:00)
[2018-07-16] MEDS ORDERED: Pantoprazole 40 MG VIAL IVP SCH (09:00)
--- NOTE | 2018-07-16 10:18 | RAD ---
LIMITED SINGLE SIP UPPER GI WITH : HISTORY: Status post vertical sleeve gastrectomy. FINDINGS: There is passage of contrast from the esophagus into the gastric remnant an duodenum. No high-grade obstruction or contrast extravasation is seen. IMPRESSION: No evidence of obstruction or leak. POS: [facility]
[2018-07-16] MEDS ORDERED: DC PCA Order Set 1 EACH FS ONE (11:54)
[2018-07-16] MEDS ORDERED: Hydrocodone-Acetamin 15 ML UDCUP PO PRN (11:54)
[2018-07-16] MEDS ORDERED: GASTROGRAFIN 30 ML BOT ONE (14:56)
[2018-07-16] MEDS ORDERED: Gabapentin 300 MG CAP PO SCH (15:00)
[2018-07-16 15:38] VITALS: BP 129/73; TEMP 97.7
[2018-07-16] MEDS ORDERED: Carvedilol 25 MG TAB PO SCH (17:00)
[2018-07-16] MEDS ORDERED: Sacubitril 24.5 MG/Valsartan 25.5 MG TABLET PO SCH (21:00)
--- NOTE | 2018-07-17 00:38 | DIS ---
DISCHARGE DIAGNOSIS: Morbid obesity. PROCEDURES DURING ADMISSION: Laparoscopic sleeve gastrectomy, intraoperative esophagogastroscopy, po stoperative Gastrografin swallow. HOSPITAL COURSE: Patient was admitted, taken to the operating room and underwent sleeve gastrectomy. Postoperatively, he did well. Swallow was fine. He is tolerating liquids well. He is discharged home in good condition on hydrocodone, Zofran, as well as his usual medications with the exception, w here holding his Lasix and aspirin. He will follow up with me in 2 weeks.
[2018-07-17] MEDS ORDERED: Digoxin 0.125 MG TAB PO SCH (09:00)
== END 2018-07-16 17:55 | disposition home or self-care (01) | DRG 620 ==
LOC: SURG A 07:47
PROVIDERS: ADMIT Surgery; ATTEND Surgery
PROC: 0DB64Z3 Excision of Stomach, Percutaneous Endoscopic Approach, Vertical (ICD-10-PCS; principal; 2018-07-15)
DX: E66.01 Morbid (severe) obesity due to excess calories (principal); I50.22 Chronic systolic (congestive) heart failure; Z68.43 Body mass index [BMI] 50.0-59.9, adult; Z79.82 Long term (current) use of aspirin; I11.0 Hypertensive heart disease with heart failure; Z87.891 Personal history of nicotine dependence; F32.9 Major depressive disorder, single episode, unspecified; Z88.0 Allergy status to penicillin; Z88.2 Allergy status to sulfonamides
CPT/HCPCS: 71045; 74241; 80048; 85025; 88307; 88312; 94760; C9113; J0131; J1200; J1642; J1644; J1650; J1885; J1956; J2001; J2250; J2405; J2704; J2765; J3010; J7050

== ENCOUNTER 2018-10-09 10:27 | Outpatient (CLI) | payer OTHER ==
--- NOTE | 2018-10-09 13:49 | CT ---
CT ABDOMEN AND PELVIS WITH IV CONTRAST: Date: 10-09-18 Provided Clinical History: Abdominal pain. FINDINGS: The visualized lung bases are free of significant opacity. The liver, spleen, pancreas, kidneys and adrenal glands demonstrate an unremarkable CT appearance. Changes of gastric sleeve are demonstrated. There is no bowel dilatation, inflammatory fat stranding, free fluid, or lymph node enlargement appar ent. The osseous structures demonstrate no concerning osteoblastic or osteolytic lesions. IMPRESSION: No evidence for an acute process. POS: [facility]
== END 2018-10-09 10:28 | disposition home or self-care (01) ==
LOC: BICCT 10:27
PROVIDERS: ATTEND Surgery
DX: R10.9 Unspecified abdominal pain (principal)
CPT/HCPCS: 74177

== ENCOUNTER 2018-11-02 07:33 | Day surgery (SDC) | payer MEDICARE, MEDICAID ==
[2018-10-30 11:44] VITALS: BMI 40.0
--- NOTE | 2018-11-02 13:06 | OP ---
DATE OF PROCEDURE: 11/02/2018 PROCEDURE PERFORMED: Esophagogastroduodenoscopy (diagnostic). INDICATION FOR PROCEDURE: Midepigastric abdominal pain, the patient is status post sleeve gastrectomy in May of 2018. DESCRIPTION OF PROCEDURE: After the risks and benefits of the procedure were explained to the patient including risks of bleeding, infection, perforation, reactions to anesthesia, aspiration, and/or pain, informed consent was obtained. The patient was then taken to the endoscopy suite, where deep sedation was administered via propofol and anesthesia support. Once the adequate anesthesia was achieved, the standard gastroscope was introduced into the mouth with intubation of the esophagus, stomach, and proximal small intestine with the findings listed below. The patient tolerated the procedure well with no immediate perioperative complications. At the completion of the procedure, the patient was then taken to Day Stay in satisfactory condition. FINDINGS: Esophagus: 1. Normal-appearing mucosa was seen in the proximal, mid, and distal esophagus. There was no evidence of erosions, ulcerations, mass, lesions, or active/recent bleeding. Stomach: 1. Surgical change associated with the sleeve gastrectomy was seen upon entry into the stomach; however, normal-appearing mucosa was seen in the gastric cardia, fundus, body, and antrum. Retroflexion could not be performed due to the small nature of the gastric pouch and there was some mild narrowing of the gastric pouch at the level of the incisura, but was easily traversed with the standard gastroscope. There was no evidence of erosions, ulcerations, mass, lesions, overt stricture/stenoses. Duodenum: 1. Normal-appearing mucosa was seen in both the duodenal bulb and second portion of the duodenum. There was no evidence of erosions, ulcerations, mass, lesions, or active/recent bleeding. IMPRESSION: Surgical change associated with sleeve gastrectomy with no observed abnormalities on upper endoscopy today. RECOMMENDATIONS: 1. We would have the patient follow up with the bariatric surgeon for routine followup associated with his sleeve gastrectomy. 2. Pain control per Surgical Service, seeing how his pain is primarily centered around the surgical incision sites and negative upper endoscopy today. 3. We would have the patient to follow up in the GI clinic as needed. Job ID: [id number]
[2018-11-02] MEDS ORDERED: PHENYLEPHRINE-NS 100 MCG/ML 10 ML SYRINGE ONE (16:14)
[2018-11-02] MEDS ORDERED: PROPOFOL 200 MG/20 ML VIAL ONE (16:14)
[2018-11-02] MEDS ORDERED: Lidocaine 1% PF 5 ML VIAL ONE (16:14)
== END 2018-11-02 11:53 | disposition home or self-care (01) ==
LOC: SDC 07:33
PROVIDERS: ATTEND Internal Medicine
PROC: 0DJ08ZZ Inspection of Upper Intestinal Tract, Via Natural or Artificial Opening Endoscopic (ICD-10-PCS; principal; 2018-11-02)
DX: G89.18 Other acute postprocedural pain (principal); K21.9 Gastro-esophageal reflux disease without esophagitis; M19.90 Unspecified osteoarthritis, unspecified site; D64.9 Anemia, unspecified; F32.9 Major depressive disorder, single episode, unspecified; G47.30 Sleep apnea, unspecified; Z79.899 Other long term (current) drug therapy; Z90.3 Acquired absence of stomach [part of]; Z88.0 Allergy status to penicillin; Z88.1 Allergy status to other antibiotic agents; Z87.891 Personal history of nicotine dependence
CPT/HCPCS: J2001; J2704

== ENCOUNTER 2018-12-29 14:30 | Outpatient (CLI) | payer MEDICARE, MEDICAID ==
[~2018-12-29 14:30] MED LIST: Iopamidol 370 76% 100 ML VIAL ONE
--- NOTE | 2018-12-29 17:03 | CT ---
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 Retinoblastoma at age 4. Prese nts with headache. FINDINGS: Absence of right globe, replaced with 1.7 cm spherical dense prosthesis which is located asymmetrical ly in the superior medial corner of the right orbit. It deforms and displaces the right superior rect us/ levator palpebrae comple, and right superior ophthalmic vein, superiorly and laterally. Anterior to that, there is a crescentic, more superficial, anterior prosthesis. Between these two components, abutting the posterior surface of the crescentic anterior prosthesis, there is prominent, thick web-l jose angel disorganized cluster of soft tissue material. Among this, there is a tiny bubble of gas abutting the posterior surface of the anterior crescentic prosthesis. The anterior half of the right optic ner ve is absent. There is no asymmetry in the enhancement or contours of the cavernous sinuses bilateral ly. No suprasellar mass compressing the optic chiasm. The left orbit is normal. The frontal, sphenoid , and ethmoid sinuses are clear. Nasal cavity is clear. The inferior 10% of the maxillary sinuses are excluded from the field of view. The rest of the maxillary sinuses are clear. No osseous destructive lesion. IMPRESSION: 1. Status post enucleation of the right eye. 2. Two component right orbital prostheses. The spherical prosthesis is asymmetrically positioned at t he superomedial corner of the orbit, and it compresses, displaces, and distorts the right superior re ctus/levator palpebrae muscle complex and superior ophthalmic vein. 3. Prominent strands of web-like disorganized soft tissue density material, and a tiny focus of gas, abutting the posterior surface of the anterior component of the prosthesis. This could either represe nt severe scar tissue or cellulitis. POS: [facility]
== END 2018-12-29 14:31 | disposition home or self-care (01) ==
LOC: BICCT 14:30
DX: C69.61 Malignant neoplasm of right orbit (principal); Z98.890 Other specified postprocedural states
CPT/HCPCS: 70482; Q9967

== ENCOUNTER 2019-07-07 14:04 | Outpatient (CLI) | payer MEDICARE, MEDICAID ==
--- NOTE | 2019-07-07 15:19 | CT ---
CT ABDOMEN AND PELVIS WITH AND WITHOUT IV CONTRAST 07/07/2019 CLINICAL INFORMATION: Hematuria COMPARISON: 10/09/2018 Technique: Multiple contiguous axial CT images are obtained through the abdomen and pelvis with IV contrast. Cor onal reformatted images are provided. FINDINGS: Lower Chest: Minimal pleural-based nodular densities are seen in the posterior aspect of each lung ba se stable from prior exam may relate to focal areas of minimal pleural thickening. Partial visualization of AICD leads are again seen within the right atrial appendage and right ventricle. Vessels: Abdominal aorta is normal in caliber. Abdomen: Portal vein:Not well opacified but grossly appears patent. Gallbladder: Within normal limits for CT imaging. Liver: within normal limits. Spleen: within normal limits. Pancreas: within normal limits. Adrenals: within normal limits. Kidneys: within normal limits. No renal or ureteral calculi are seen bilaterally. No enhancing renal mass is identified. Right kidney is mildly rotated. Bowel: Postsurgical changes of the stomach are seen. The cecum extends medially and is seen within th e left mid abdomen. Appendix: Secondary to the cecum extending into the left mid abdomen, the appendix is located to the left of midline but is normal in caliber. Peritoneum: No ascites or free air; no fluid collection. Mesentery and Retroperitoneum: No enlarged mesenteric or retroperitoneal lymph nodes. Abdominal Wall: within normal limits. Pelvis: Reproductive Organs: No pelvic masses. Pelvis within normal limits. Bladder: Mostly decompressed but otherwise grossly within normal limits. Bones: Mild degenerative changes are seen in the spine. Subchondral cystic changes are seen in each a cetabulum. IMPRESSION: 1. No renal or ureteral calculi are seen bilaterally, and no enhancing renal mass is visualized. 2. Postsurgical change of the stomach. 3. The cecum extends across midline and is located in the left mid abdomen. The appendix is also in t he left abdomen and is normal in caliber.
== END 2019-07-07 14:05 | disposition home or self-care (01) ==
LOC: BICCT 14:04
PROVIDERS: ATTEND Physician Assistant
DX: R31.0 Gross hematuria (principal); Z98.890 Other specified postprocedural states
CPT/HCPCS: 74178

== ENCOUNTER 2019-11-20 22:20 | Emergency (ER) | payer MEDICARE, MEDICAID ==
[2019-11-20 23:25] LABS: Mean Corpuscular HGB CONC 33.7 g/dL (32.0-36.0); Mean Corpuscular Hemoglobin 31.4 pg (27.0-31.0); Mean Corpuscular Volume 93.1 fL (78.0-98.0); Mean Platelet Volume 7.3 fL (7.4-10.4); Platelet Count 226 thou/uL (130-400); RBC Distribution Width 11.2 % (11.5-14.5); Red Blood Cell (RBC) Count 4.79 mill/uL (4.70-6.10); White Blood Cell (WBC) Count 5.2 thou/uL (4.8-10.8)
[2019-11-20 23:39] LABS: ALT (SGPT) 32 U/L (8-55); AST (SGOT) 26 U/L (5-34); Albumin 4.2 g/dL (3.5-5.0); Alkaline Phosphatase 91 U/L (40-110); Anion Gap 11 mmol/L (10-20); BUN (Urea Nitrogen) 14 mg/dL (8.9-20.6); Bilirubin, Total 0.8 mg/dL (0.2-1.2); Calc. Creatinine Clearance 0 mL/min (70-130); Calcium 8.7 mg/dL (7.8-10.44); Carbon Dioxide 26 mmol/L (22-29); Chloride 103 mmol/L (98-107); Estimated GFR-MDRD 68; Globulin 2.6 g/dL (2.4-3.5); Glucose 91 mg/dL (70-105); Potassium 4.2 mmol/L (3.5-5.1); Protein, Total 6.8 g/dL (6.0-8.3); Sodium 136 mmol/L (136-145)
[2019-11-20 23:42] LABS: Band 5 % (5-11); Eosinophils 1 % (0-10); Lymphocytes 11 % (21-51); MDiff Complete? YES; Monocytes 18 % (0-10); Neutrophil 65 % (42-75)
--- NOTE | 2019-11-20 23:50 | RAD ---
Chest AP view INDICATION: Dizziness and stuttering speech COMPARISON: July 15, 2018 FINDINGS: Lungs:The lungs are clear Cardiac silhouette:The cardiomediastinal silhouette appears within normal limits. Pulmonary vasculature:Normal Pleural spaces:No pleural effusion or pneumothorax is demonstrated. Upper abdomen:No abnormality seen. Osseous structures: No acute osseous abnormality. Additional findings:Stable dual-lead AICD. IMPRESSION: No acute cardiopulmonary abnormality.
== END 2019-11-21 00:48 | disposition home or self-care (01) ==
LOC: ERS 22:20
DX: B34.9 Viral infection, unspecified (principal); I50.9 Heart failure, unspecified; Z87.01 Personal history of pneumonia (recurrent); Z87.891 Personal history of nicotine dependence; Z79.899 Other long term (current) drug therapy
CPT/HCPCS: 36415; 71045; 80053; 83880; 84484; 85025; 87804; 93005

== ENCOUNTER 2020-11-28 14:42 | Outpatient (CLI) | payer MEDICARE, OTHER ==
--- NOTE | 2020-11-28 15:48 | CT ---
CT HEAD WITHOUT IV CONTRAST COMPARISON: None HISTORY: Headache and left eye pain. Patient has history of removal right eye secondary to retinoblastoma. TECHNIQUE: Axial CT imaging at 5 mm intervals from vertex through skull base without contrast FINDINGS: There is no evidence of an acute infarction, hemorrhage, mass effect, or midline shift. No abnormal a reas of enhancement are seen after the administration of intravenous contrast. The ventricular system is normal in size, shape, and position. Right globe is absent with 2 separate right orbital prostheses present which are unchanged in appeara nce compared to CT orbits on 12/29/2018 with displacement of structures in the right globe as described on prior CT in addition to areas of linear stranding which are also stable. Visualized paranasal sinuses are clear. Opacification of several left mastoid air cells are present s uggesting mastoid effusions. Osseous structures appear intact.No suspicious lytic or sclerotic osseous lesion is identified within the calvarium. IMPRESSION: 1. No acute intracranial abnormality demonstrated. 2. Postoperative changes right orbit unchanged from CT on 12/29/2018. 3. Left mastoid effusions. This was also seen on CT orbits on 12/29/2018.
== END 2020-11-28 14:43 | disposition home or self-care (01) ==
LOC: BICCT 14:42
PROVIDERS: ATTEND Family Medicine
DX: H57.12 Ocular pain, left eye (principal); R51.9 Headache, unspecified; E66.01 Morbid (severe) obesity due to excess calories; H74.8X2 Other specified disorders of left middle ear and mastoid; Z90.01 Acquired absence of eye; Z85.840 Personal history of malignant neoplasm of eye; Z95.810 Presence of automatic (implantable) cardiac defibrillator
CPT/HCPCS: 70470; Q9967

== ENCOUNTER 2021-03-26 12:09 | Outpatient (CLI) | payer MEDICARE, OTHER | END 2021-03-26 12:10 | disposition home or self-care (01) | LOC: BICRAD 12:09 | PROVIDERS: ATTEND Nurse Practitioner Family | DX: M25.562 Pain in left knee (principal); M17.12 Unilateral primary osteoarthritis, left knee; M25.462 Effusion, left knee ==

== ENCOUNTER 2021-11-05 11:40 | Emergency (ER) | payer OTHER, MEDICARE, MEDICAID ==
[~2021-11-05 11:40] MED LIST changes: -Iopamidol 370 76% 100 ML VIAL ONE; +Iopamidol-370 76% 500 ML 1 ML ONE
[2021-11-05 12:22] LABS: #Basophils 0.1 thou/uL (0.0-0.2); #Eosinphils 0.3 thou/uL (0.0-0.7); #Lymphocytes 1.9 thou/uL (1.20-3.40); #Monocytes 0.7 thou/uL (0.11-0.59); %Basophils 1.4 % (0.0-1.0); %Eosinophils 4.8 % (0.0-10.0); %Lymphocytes 31.7 % (21.0-51.0); %Monocytes 11.1 % (0.0-10.0); Hemoglobin 14.6 g/dL (14.0-18.0); Mean Corpuscular HGB CONC 33.4 g/dL (32.0-36.0); Mean Corpuscular Hemoglobin 30.5 pg (27.0-31.0); Mean Corpuscular Volume 91.1 fL (78.0-98.0); Mean Platelet Volume 7.1 fL (7.4-10.4); Platelet Count 244 thou/uL (130-400); RBC Distribution Width 12.3 % (11.5-14.5); Red Blood Cell (RBC) Count 4.78 mill/uL (4.70-6.10); White Blood Cell (WBC) Count 5.9 thou/uL (4.8-10.8)
[2021-11-05] MEDS ORDERED: Ketorolac Tromethamine 30 MG/ML VIAL ONE (12:22)
[2021-11-05 12:41] LABS: Bilirubin Negative (Negative); Blood, Urine Negative (Negative); Clarity Clear (Clear); Glucose, Urine (Dipstick) Normal (Negative); Ketone, Urine Negative (Negative); Leukocyte Negative Leu/uL (Negative); Nitrite Negative (Negative); Protein, Urine (Dipstick) Negative (Neg-Trace); Specific Gravity, Urine 1.005 (1.002-1.036); Urobilinogen Normal mg/dL (Less than 2)
[2021-11-05 12:50] LABS: ALT (SGPT) 22 U/L (8-55); AST (SGOT) 29 U/L (5-34); Albumin 4.3 g/dL (3.5-5.0); Alkaline Phosphatase 117 U/L (40-110); Anion Gap 15 mmol/L (10-20); BUN (Urea Nitrogen) 12 mg/dL (8.9-20.6); Bilirubin, Total 0.7 mg/dL (0.2-1.2); Calc. Creatinine Clearance 0 mL/min (70-130); Calcium 9.4 mg/dL (7.8-10.44); Carbon Dioxide 28 mmol/L (22-29); Chloride 98 mmol/L (98-107); Glucose 106 mg/dL (70-105); Lipase 12 U/L (8-78); Potassium 3.8 mmol/L (3.5-5.1); Protein, Total 7.3 g/dL (6.0-8.3); Sodium 137 mmol/L (136-145)
[2021-11-05] MEDS ORDERED: Bacitracin 1 PK ONE (13:58)
[2021-11-05] MEDS ORDERED: Ondansetron PF 4 MG/2 ML Vial ONE (16:04)
[2021-11-05] MEDS ORDERED: Morphine 4 MG/ML VIAL ONE (16:04)
== END 2021-11-05 16:33 | disposition home or self-care (01) ==
LOC: ERS 11:40
DX: S16.1XXA Strain of muscle, fascia and tendon at neck level, initial encounter (principal); S00.81XA Abrasion of other part of head, initial encounter; M54.9 Dorsalgia, unspecified; Z87.891 Personal history of nicotine dependence; V69.40XA Driver of heavy transport vehicle injured in collision with unspecified motor vehicles in traffic accident, initial encounter
CPT/HCPCS: 70450; 71260; 72125; 74177; 80053; 81003; 83690; 85025; 96374; 96375; J1885; J2270; J2405; Q9967

== ENCOUNTER 2022-02-14 16:04 | Inpatient (IN) | payer MEDICARE, MEDICAID ==
[2022-02-14 17:07] LABS: #Eosinphils 0.3 thou/uL (0.0-0.7); #Lymphocytes 2.7 thou/uL (1.20-3.40); #Neutrophils 4.1 thou/uL (1.40-6.50); %Basophils 0.2 % (0.0-1.0); %Eosinophils 3.9 % (0.0-10.0); %Lymphocytes 33.1 % (21.0-51.0); %Monocytes 12.8 % (0.0-10.0); Hemoglobin 14.2 g/dL (14.0-18.0); Mean Corpuscular HGB CONC 33.3 g/dL (32.0-36.0); Mean Corpuscular Volume 93.1 fL (78.0-98.0); Mean Platelet Volume 7.2 fL (7.4-10.4); Platelet Count 303 thou/uL (130-400); RBC Distribution Width 11.9 % (11.5-14.5); Red Blood Cell (RBC) Count 4.58 mill/uL (4.70-6.10); White Blood Cell (WBC) Count 8.1 thou/uL (4.8-10.8)
[2022-02-14 17:26] LABS: ALT (SGPT) 23 U/L (8-55); AST (SGOT) 24 U/L (5-34); Albumin 4.3 g/dL (3.5-5.0); Alkaline Phosphatase 122 U/L (40-110); Anion Gap 17 mmol/L (10-20); BUN (Urea Nitrogen) 11 mg/dL (8.9-20.6); Bilirubin, Total 0.5 mg/dL (0.2-1.2); Calc. Creatinine Clearance 0 mL/min (70-130); Carbon Dioxide 28 mmol/L (22-29); Chloride 98 mmol/L (98-107); Globulin 3.1 g/dL (2.4-3.5); Glucose 98 mg/dL (70-105); Potassium 3.8 mmol/L (3.5-5.1); Protein, Total 7.4 g/dL (6.0-8.3); Sodium 139 mmol/L (136-145)
[2022-02-14] MEDS ORDERED: Aspirin 325 MG TAB ONE (17:47)
[2022-02-14] MEDS ORDERED: Nitroglycerin 2% Ointment 1 INCH/1 GM Packet ONE (17:47)
[2022-02-14] MEDS ORDERED: Ondansetron PF 4 MG/2 ML Vial ONE (17:47)
[2022-02-14] MEDS ORDERED: Nitroglycerin 0.4 MG TAB 1 EACH ONE (19:03)
[2022-02-14 20:08] VITALS: BMI 49.8
[2022-02-14] MEDS ORDERED: Dextrose 5% in Water 1,000 ML IV PRN (20:13)
[2022-02-14] MEDS ORDERED: Dextrose 50% Abboject 50 ML SYRINGE SLOW IVP PRN (20:13)
[2022-02-14] MEDS ORDERED: Ondansetron PF 4 MG/2 ML Vial IVP PRN (20:15)
[2022-02-14] MEDS ORDERED: Ondansetron ODT 4 MG TAB SL PRN (20:15)
[2022-02-14] MEDS ORDERED: Sodium Chloride 0.9% 1,000 ML IV SCH (20:15)
[2022-02-14] MEDS ORDERED: Acetaminophen 325 MG TAB PO PRN (20:15)
[2022-02-14] MEDS ORDERED: Carvedilol 6.25 MG TAB PO SCH (21:15)
[2022-02-14] MEDS ORDERED: Allopurinol 300 MG TAB PO SCH (21:15)
[2022-02-14] MEDS ORDERED: Amitriptyline HCl 25 MG TAB PO SCH (21:15)
[2022-02-14] MEDS ORDERED: Atorvastatin Calcium 20 MG TAB PO SCH (21:15)
[2022-02-14] MEDS ORDERED: Methocarbamol 500 MG TAB PO PRN (21:23)
[2022-02-14] MEDS ORDERED: Prazosin HCl 1 MG CAP PO SCH (21:30)
[2022-02-14] MEDS ORDERED: Lurasidone 20 MG TABLET PO SCH (21:30)
[2022-02-14] MEDS ORDERED: Furosemide 80 MG TAB PO SCH (21:30)
[2022-02-14] MEDS: Pantoprazole 40 MG VIAL IVP SCH (21:30)
[2022-02-14] MEDS ORDERED: busPIRone HCl 10 MG TAB PO SCH (21:30)
[2022-02-14] MEDS ORDERED: OXcarbazepine 300 MG TAB PO SCH (21:30)
[2022-02-14] MEDS ORDERED: Gabapentin 400 MG CAP PO SCH (22:00)
[2022-02-14] MEDS: ALPRAZolam 0.5 MG TAB PO PRN (22:31)
[2022-02-14 22:35] LABS: Troponin I Less than 0.010 ng/mL (< 0.028)
[2022-02-14 23:20] LABS: SARS-CoV-2 PCR by NAA Not Detected (NotDetected)
[2022-02-15] MEDS ORDERED: Nitroglycerin 0.4 MG TAB (25 Tab Bottle) SL PRN (00:12)
[2022-02-15 01:33] LABS: Troponin I Less than 0.010 ng/mL (< 0.028)
[2022-02-15] MEDS ORDERED: Lidocaine 2% Viscous Solution 10 ML, Aluminum & Magnesium Hydroxide 30 ML SSW SCH (02:30)
[2022-02-15 04:47] LABS: #Eosinphils 0.3 thou/uL (0.0-0.7); #Monocytes 0.8 thou/uL (0.11-0.59); #Neutrophils 3.5 thou/uL (1.40-6.50); %Basophils 0.4 % (0.0-1.0); %Eosinophils 3.7 % (0.0-10.0); %Lymphocytes 39.6 % (21.0-51.0); %Monocytes 10.8 % (0.0-10.0); %Neutrophils 45.4 % (42.0-75.0); Hemoglobin 12.8 g/dL (14.0-18.0); Mean Corpuscular HGB CONC 33.4 g/dL (32.0-36.0); Mean Corpuscular Hemoglobin 31.3 pg (27.0-31.0); Mean Corpuscular Volume 93.6 fL (78.0-98.0); Platelet Count 255 thou/uL (130-400); RBC Distribution Width 11.9 % (11.5-14.5); Red Blood Cell (RBC) Count 4.08 mill/uL (4.70-6.10); White Blood Cell (WBC) Count 7.6 thou/uL (4.8-10.8)
[2022-02-15 05:03] LABS: Anion Gap 13 mmol/L (10-20); BUN (Urea Nitrogen) 12 mg/dL (8.9-20.6); Calc. Creatinine Clearance 177 mL/min (70-130); Calcium 8.7 mg/dL (7.8-10.44); Carbon Dioxide 29 mmol/L (22-29); Chloride 98 mmol/L (98-107); Glucose 92 mg/dL (70-105); Potassium 3.4 mmol/L (3.5-5.1); Sodium 137 mmol/L (136-145)
[2022-02-15] MEDS: Furosemide 80 MG TAB PO SCH ×2 (06:34→15:39)
[2022-02-15] MEDS ORDERED: Potassium Chloride 20 MEQ TAB PO SCH (08:30)
[2022-02-15] MEDS: Carvedilol 6.25 MG TAB PO SCH ×2 (09:47→15:42)
[2022-02-15] MEDS: Gabapentin 400 MG CAP PO SCH ×3 (09:47→21:15)
[2022-02-15] MEDS: busPIRone HCl 10 MG TAB PO SCH ×2 (09:47→21:16)
[2022-02-15] MEDS: lamoTRIgine 100 MG TAB PO SCH (09:48)
[2022-02-15] MEDS: Pantoprazole 40 MG VIAL IVP SCH ×2 (09:49→21:16)
[2022-02-15] MEDS: OXcarbazepine 300 MG TAB PO SCH ×2 (09:49→21:12)
[2022-02-15] MEDS: lamoTRIgine 25 MG TAB PO SCH (09:53)
[2022-02-15] MEDS ORDERED: Clindamycin 75 mg/5 ml Oral Suspension PO SCH (11:15)
[2022-02-15] MEDS ORDERED: Clindamycin 150 MG CAP PO SCH (11:30)
[2022-02-15] MEDS ORDERED: PHENYLEPHRINE-NS 100 MCG/ML 10 ML SYRINGE ONE (13:47)
[2022-02-15] MEDS ORDERED: Fentanyl 100 MCG/2 ML VIAL ONE (13:47)
[2022-02-15] MEDS ORDERED: PROPOFOL 200 MG/20 ML VIAL ONE (14:07)
[2022-02-15] MEDS: VORTIOXETINE HYDROBROMIDE 20 MG PO SCH (18:09)
[2022-02-15] MEDS ORDERED: Amitriptyline HCl 25 MG TAB PO SCH (21:00)
[2022-02-15] MEDS ORDERED: Prazosin HCl 1 MG CAP PO SCH (21:00)
[2022-02-15] MEDS ORDERED: Atorvastatin Calcium 20 MG TAB PO SCH (21:00)
[2022-02-15] MEDS ORDERED: Allopurinol 300 MG TAB PO SCH (21:00)
[2022-02-15] MEDS ORDERED: Lurasidone 20 MG TABLET PO SCH (21:00)
[2022-02-15] MEDS: ALPRAZolam 0.5 MG TAB PO PRN (21:12)
[2022-02-15] MEDS: Clindamycin 150 MG CAP PO SCH (21:16)
[2022-02-15] MEDS ORDERED: Artificial Tear Sol 15 ML BOT EA EYE PRN (21:32)
[2022-02-16 04:47] LABS: #Eosinphils 0.3 thou/uL (0.0-0.7); #Lymphocytes 2.7 thou/uL (1.20-3.40); #Monocytes 0.7 thou/uL (0.11-0.59); #Neutrophils 3.3 thou/uL (1.40-6.50); %Basophils 0.5 % (0.0-1.0); %Eosinophils 4.5 % (0.0-10.0); %Lymphocytes 38.7 % (21.0-51.0); %Monocytes 9.7 % (0.0-10.0); %Neutrophils 46.6 % (42.0-75.0); Hemoglobin 12.8 g/dL (14.0-18.0); Mean Corpuscular HGB CONC 33.5 g/dL (32.0-36.0); Mean Corpuscular Hemoglobin 31.5 pg (27.0-31.0); Mean Corpuscular Volume 93.9 fL (78.0-98.0); Mean Platelet Volume 7.1 fL (7.4-10.4); Platelet Count 258 thou/uL (130-400); RBC Distribution Width 11.9 % (11.5-14.5); Red Blood Cell (RBC) Count 4.07 mill/uL (4.70-6.10); White Blood Cell (WBC) Count 7.1 thou/uL (4.8-10.8)
[2022-02-16 05:04] LABS: Anion Gap 12 mmol/L (10-20); BUN (Urea Nitrogen) 11 mg/dL (8.9-20.6); Calc. Creatinine Clearance 206 mL/min (70-130); Calcium 8.5 mg/dL (7.8-10.44); Carbon Dioxide 30 mmol/L (22-29); Chloride 98 mmol/L (98-107); Glucose 97 mg/dL (70-105); Potassium 3.3 mmol/L (3.5-5.1); Sodium 137 mmol/L (136-145)
[2022-02-16] MEDS: Furosemide 80 MG TAB PO SCH (06:24)
[2022-02-16] MEDS: Clindamycin 150 MG CAP PO SCH (08:19)
[2022-02-16] MEDS: Gabapentin 400 MG CAP PO SCH (08:19)
[2022-02-16] MEDS: Carvedilol 6.25 MG TAB PO SCH (08:19)
[2022-02-16] MEDS: busPIRone HCl 10 MG TAB PO SCH (08:19)
[2022-02-16] MEDS: Pantoprazole 40 MG VIAL IVP SCH (08:20)
[2022-02-16] MEDS: OXcarbazepine 300 MG TAB PO SCH (08:20)
[2022-02-16] MEDS: lamoTRIgine 100 MG TAB PO SCH (08:20)
[2022-02-16] MEDS: VORTIOXETINE HYDROBROMIDE 20 MG PO SCH (08:21)
[2022-02-16] MEDS: lamoTRIgine 25 MG TAB PO SCH (08:23)
[2022-02-16] MEDS ORDERED: Potassium Chloride 20 MEQ TAB PO SCH (11:15)
[2022-02-16 12:10] VITALS: BP 140/93; TEMP 97.5
== END 2022-02-16 13:00 | disposition home or self-care (01) | DRG 392 ==
LOC: ERS 16:04 → 2SW 18:48 → OBSVTOIN 02-15 11:25
PROVIDERS: ADMIT Internal Medicine; ATTEND Internal Medicine
PROC: 0DB38ZX Excision of Lower Esophagus, Via Natural or Artificial Opening Endoscopic, Diagnostic (ICD-10-PCS; principal; 2022-02-15)
PROC: 0DB18ZX Excision of Upper Esophagus, Via Natural or Artificial Opening Endoscopic, Diagnostic (ICD-10-PCS; 2022-02-15)
PROC: 0DB98ZX Excision of Duodenum, Via Natural or Artificial Opening Endoscopic, Diagnostic (ICD-10-PCS; 2022-02-15)
PROC: 0DB68ZX Excision of Stomach, Via Natural or Artificial Opening Endoscopic, Diagnostic (ICD-10-PCS; 2022-02-15)
DX: R13.19 Other dysphagia (principal); I13.0 Hypertensive heart and chronic kidney disease with heart failure and stage 1 through stage 4 chronic kidney disease, or unspecified chronic kidney disease; I50.22 Chronic systolic (congestive) heart failure; Z68.43 Body mass index [BMI] 50.0-59.9, adult; I42.8 Other cardiomyopathies; Z20.822 Contact with and (suspected) exposure to COVID-19; E66.01 Morbid (severe) obesity due to excess calories; N18.2 Chronic kidney disease, stage 2 (mild); E11.9 Type 2 diabetes mellitus without complications; Z98.84 Bariatric surgery status; Z95.810 Presence of automatic (implantable) cardiac defibrillator; Z88.0 Allergy status to penicillin; Z88.1 Allergy status to other antibiotic agents; Z88.2 Allergy status to sulfonamides; Z98.890 Other specified postprocedural states; Z87.891 Personal history of nicotine dependence; Z79.899 Other long term (current) drug therapy
CPT/HCPCS: 36415; 36416; 71045; 74220; 80048; 80053; 83880; 84484; 85025; 88305; 88342; 93005; 93010; 93306; 94760; 96374; 96375; 96376; C9113; G0378; J2405; J2704; J3010; J7050; U0003; U0005

== ENCOUNTER 2022-03-29 12:31 | Emergency (ER) | payer MEDICARE, OTHER ==
[2022-03-29 13:53] LABS: #Basophils 0.1 thou/uL (0.0-0.2); #Eosinphils 0.3 thou/uL (0.0-0.7); #Lymphocytes 1.2 thou/uL (1.20-3.40); #Monocytes 0.8 thou/uL (0.11-0.59); #Neutrophils 3.9 thou/uL (1.40-6.50); %Basophils 1.1 % (0.0-1.0); %Eosinophils 4.4 % (0.0-10.0); %Lymphocytes 18.6 % (21.0-51.0); %Monocytes 12.9 % (0.0-10.0); %Neutrophils 62.9 % (42.0-75.0); Hemoglobin 13.8 g/dL (14.0-18.0); Mean Corpuscular HGB CONC 32.8 g/dL (32.0-36.0); Mean Corpuscular Hemoglobin 31.2 pg (27.0-31.0); Mean Corpuscular Volume 95.2 fL (78.0-98.0); Mean Platelet Volume 7.3 fL (7.4-10.4); Platelet Count 254 thou/uL (130-400); RBC Distribution Width 12.2 % (11.5-14.5); Red Blood Cell (RBC) Count 4.42 mill/uL (4.70-6.10); White Blood Cell (WBC) Count 6.2 thou/uL (4.8-10.8)
[2022-03-29 14:21] LABS: ALT (SGPT) 18 U/L (8-55); AST (SGOT) 20 U/L (5-34); Albumin 4.1 g/dL (3.5-5.0); Alkaline Phosphatase 104 U/L (40-110); Anion Gap 13 mmol/L (10-20); BUN (Urea Nitrogen) 9 mg/dL (8.9-20.6); Bilirubin, Total 0.7 mg/dL (0.2-1.2); Calc. Creatinine Clearance 0 mL/min (70-130); Calcium 8.8 mg/dL (7.8-10.44); Carbon Dioxide 29 mmol/L (22-29); Chloride 99 mmol/L (98-107); Globulin 3.2 g/dL (2.4-3.5); Glucose 97 mg/dL (70-105); Potassium 3.6 mmol/L (3.5-5.1); Protein, Total 7.3 g/dL (6.0-8.3); Sodium 137 mmol/L (136-145)
[2022-03-29] MEDS ORDERED: Acetaminophen 500 MG TAB ONE (15:30)
[2022-03-29] MEDS ORDERED: Ketorolac Tromethamine 30 MG/ML VIAL ONE (15:30)
[2022-03-29 16:27] LABS: Troponin I Less than 0.010 ng/mL (< 0.028)
== END 2022-03-29 16:58 | disposition home or self-care (01) ==
LOC: ERS 12:31
DX: J20.8 Acute bronchitis due to other specified organisms (principal); I10 Essential (primary) hypertension; Z87.891 Personal history of nicotine dependence; Z20.822 Contact with and (suspected) exposure to COVID-19
CPT/HCPCS: 36415; 71045; 80053; 83880; 84484; 85025; 93005; 96372; J1885

== ENCOUNTER 2022-05-03 11:02 | Outpatient (CLI) | payer MEDICARE, OTHER ==
[2022-05-03 12:43] LABS: #Basophils 0.1 10x3/uL (0.0-0.2); #Eosinphils 0.3 10x3/uL (0.0-0.5); #Monocytes 0.9 10x3/uL (0.0-1.1); #Neutrophils 3.2 10x3/uL (1.5-8.4); %Basophils 0.8 % (0.0-2.0); %Eosinophils 4.7 % (0.0-6.0); %Lymphocytes 32.5 % (18.0-47.0); %Monocytes 13.1 % (0.0-10.0); %Neutrophils 48.7 % (40.0-75.0); Hemoglobin 12.9 g/dL (13.5-17.5); Mean Corpuscular HGB CONC 33.2 g/dL (32.0-36.0); Mean Corpuscular Hemoglobin 30.1 pg (27.0-33.0); Mean Corpuscular Volume 90.7 fl (81.2-95.1); Platelet Count 259 10x3/uL (150-450); RBC Distribution Width 12.8 % (11.5-14.5); Red Blood Cell (RBC) Count 4.28 10x6/uL (4.32-5.72); White Blood Cell (WBC) Count 6.6 10x3/uL (3.5-10.5)
[2022-05-03 13:11] LABS: ALT (SGPT) 17 U/L (8-55); AST (SGOT) 28 U/L (5-34); Alkaline Phosphatase 95 U/L (40-110); BUN (Urea Nitrogen) 16 mg/dL (8.9-20.6); Bilirubin, Total 0.5 mg/dL (0.2-1.2); Calc. Creatinine Clearance 0 mL/min (70-130); Carbon Dioxide 32 mmol/L (22-29); Estimated GFR 66; Globulin 2.7 g/dL (2.4-3.5); Glucose 103 mg/dL (70-105); Protein, Total 6.7 g/dL (6.0-8.3)
[2022-05-03 13:28] LABS: Potassium 3.6 mmol/L (3.5-5.1); Sodium 140 mmol/L (136-145)
[2022-05-03 16:55] LABS: Chloride 99 mmol/L (98-107)
[2022-05-03 16:57] LABS: Anion Gap 13 mmol/L (10-20)
[2022-05-03 19:36] LABS: Hemoglobin A1c 5.2 % (4.0-6.0)
== END 2022-05-03 11:03 | disposition home or self-care (01) ==
LOC: LABBT 11:02
PROVIDERS: ATTEND Surgery
DX: Z01.818 Encounter for other preprocedural examination (principal); K21.9 Gastro-esophageal reflux disease without esophagitis; K29.60 Other gastritis without bleeding
CPT/HCPCS: 71046; 80053; 83036; 85025

== ENCOUNTER 2022-05-03 11:15 | Inpatient (IN) | payer MEDICARE, MEDICAID ==
[2022-05-08] MEDS ORDERED: fentaNYL Citrate/PF 100 MCG/2 ML SYRINGE ONE (06:23)
[2022-05-08] MEDS ORDERED: Famotidine/PF 20 mg/2ml Vial ONE (06:23)
[2022-05-08] MEDS ORDERED: SUGAMMADEX SODIUM 200 MG/2 ML VIAL ONE ×2 (06:23→07:25)
[2022-05-08] MEDS ORDERED: Bupivacaine/Epinephrine 0.25% 30 ML VIAL ONE (07:04)
[2022-05-08] MEDS ORDERED: Levofloxacin 500 mg/D5W 100 ml Premix Bag ONE (07:28)
[2022-05-08] MEDS ORDERED: Dexamethasone 20 MG/5 ML VIAL ONE (09:38)
[2022-05-08] MEDS ORDERED: Ondansetron PF 4 MG/2 ML Vial ONE (09:38)
[2022-05-08] MEDS ORDERED: PHENYLEPHRINE-NS 100 MCG/ML 10 ML SYRINGE ONE (09:38)
[2022-05-08] MEDS ORDERED: ePHEDrine Sulfate 50 MG/10 ML VIAL ONE (09:38)
[2022-05-08] MEDS ORDERED: PROPOFOL 200 MG/20 ML VIAL ONE (09:38)
[2022-05-08] MEDS ORDERED: Ketorolac Tromethamine 30 MG/ML VIAL ONE (09:38)
[2022-05-08] MEDS ORDERED: Vecuronium 10 MG VIAL ONE (09:38)
[2022-05-08] MEDS ORDERED: Metoclopramide HCl 10 MG/2 ML VIAL ONE (09:38)
[2022-05-08] MEDS ORDERED: Succinylcholine 200 MG/10 ml SYRINGE FS ONE (09:38)
[2022-05-08] MEDS ORDERED: Lidocaine 1% PF 5 ML VIAL ONE (09:38)
[2022-05-08] MEDS ORDERED: Rocuronium Bromide 10 MG/ML (10ML VIAL) ONE (09:38)
[2022-05-08] MEDS ORDERED: Dextrose 5% in Water 1,000 ML IV PRN (10:33)
[2022-05-08] MEDS ORDERED: Hydrocodone-Acetamin 15 ML UDCUP PO PRN (10:33)
[2022-05-08] MEDS ORDERED: hydrALAZINE 20 MG/ML VIAL SLOW IVP PRN (10:33)
[2022-05-08] MEDS ORDERED: Promethazine HCl 25 MG/ML VIAL IM PRN ×3 (10:33→10:44)
[2022-05-08] MEDS ORDERED: Ondansetron PF 4 MG/2 ML Vial IVP PRN ×2 (10:33→10:44)
[2022-05-08] MEDS ORDERED: diphenhydrAMINE 50 MG/ML VIAL IVP PRN ×2 (10:33→10:44)
[2022-05-08] MEDS ORDERED: Dextrose 50% Abboject 50 ML SYRINGE SLOW IVP PRN (10:33)
[2022-05-08] MEDS ORDERED: Ondansetron HCl/PF 4 MG/2 ML Vial IVP PRN (10:44)
[2022-05-08] MEDS ORDERED: diphenhydrAMINE 25 MG CAP PO PRN (10:44)
[2022-05-08] MEDS ORDERED: Naloxone HCl 0.4 mg/ml Vial IV PRN (10:44)
[2022-05-08] MEDS ORDERED: Zolpidem Tartrate 5 MG TAB PO PRN (10:44)
[2022-05-08] MEDS ORDERED: Promethazine HCl 25 MG/ML VIAL IVPB PRN (10:44)
[2022-05-08] MEDS ORDERED: fentaNYL Citrate/PF 2,000 MCG in Sodium Chloride 0.9% 60 ML IV PRN ×2 (10:44→11:11)
[2022-05-08] MEDS ORDERED: diphenhydrAMINE 50 MG/ML VIAL IM PRN (10:44)
[2022-05-08] MEDS ORDERED: Communication Order-Pharmacy FS SCH (10:45)
[2022-05-08] MEDS ORDERED: Fentanyl 100 MCG/2 ML VIAL ONE (10:52)
[2022-05-08] MEDS ORDERED: Ketorolac Tromethamine 30 MG/ML VIAL IVP SCH (12:00)
[2022-05-08] MEDS: 1/2 NS w/KCL 20 mEq 1,000 ML IV SCH ×3 (12:57→18:50)
[2022-05-08] MEDS: Ketorolac Tromethamine 30 MG/ML VIAL IVP PRN (17:11)
[2022-05-08 19:10] VITALS: BMI 49.6
[2022-05-08] MEDS: busPIRone HCl 10 MG TAB PO SCH (20:33)
[2022-05-08] MEDS: OXcarbazepine 300 MG TAB PO SCH (20:40)
[2022-05-08] MEDS ORDERED: Atorvastatin Calcium 20 MG TAB PO SCH (21:00)
[2022-05-08] MEDS ORDERED: LURASIDONE 40 MG PO SCH (21:00)
[2022-05-08] MEDS ORDERED: Prazosin HCl 1 MG CAP PO SCH (21:00)
[2022-05-08] MEDS ORDERED: Amitriptyline HCl 25 MG TAB PO SCH (21:00)
[2022-05-09] MEDS: 1/2 NS w/KCL 20 mEq 1,000 ML IV SCH ×2 (02:10→14:33)
[2022-05-09] MEDS: Ketorolac Tromethamine 30 MG/ML VIAL IVP PRN (05:36)
[2022-05-09 05:41] LABS: #Lymphocytes 1.7 thou/uL (1.20-3.40); #Monocytes 1.4 thou/uL (0.11-0.59); #Neutrophils 13.4 thou/uL (1.40-6.50); %Basophils 0.1 % (0.0-1.0); %Eosinophils 0.2 % (0.0-10.0); %Lymphocytes 10.3 % (21.0-51.0); %Monocytes 8.6 % (0.0-10.0); %Neutrophils 80.8 % (42.0-75.0); Hemoglobin 12.4 g/dL (14.0-18.0); Mean Corpuscular HGB CONC 33.1 g/dL (32.0-36.0); Mean Corpuscular Hemoglobin 31.5 pg (27.0-31.0); Mean Corpuscular Volume 95.1 fL (78.0-98.0); Mean Platelet Volume 7.8 fL (7.4-10.4); Platelet Count 221 thou/uL (130-400); RBC Distribution Width 12.2 % (11.5-14.5); Red Blood Cell (RBC) Count 3.95 mill/uL (4.70-6.10); White Blood Cell (WBC) Count 16.6 thou/uL (4.8-10.8)
[2022-05-09 06:13] LABS: Anion Gap 16 mmol/L (10-20); BUN (Urea Nitrogen) 20 mg/dL (8.9-20.6); Calc. Creatinine Clearance 134 mL/min (70-130); Calcium 9.1 mg/dL (7.8-10.44); Carbon Dioxide 26 mmol/L (22-29); Chloride 99 mmol/L (98-107); Estimated GFR 50; Glucose 106 mg/dL (70-105); Potassium 3.9 mmol/L (3.5-5.1); Sodium 137 mmol/L (136-145)
[2022-05-09] MEDS: Hydrocodone-Acetamin 15 ML UDCUP PO PRN ×3 (06:28→17:31)
[2022-05-09] MEDS: Carvedilol 25 MG TAB PO SCH ×2 (08:59→17:31)
[2022-05-09] MEDS ORDERED: Enoxaparin Sodium 40 MG/0.4 ML SYRINGE SC SCH (09:00)
[2022-05-09] MEDS ORDERED: lamoTRIgine 25 MG TAB PO SCH (09:00)
[2022-05-09] MEDS ORDERED: VORTIOXETINE PO SCH (09:00)
[2022-05-09] MEDS ORDERED: Allopurinol 300 MG TAB PO SCH (09:00)
[2022-05-09] MEDS ORDERED: Pantoprazole 40 MG VIAL IVP SCH (09:00)
[2022-05-09] MEDS ORDERED: lamoTRIgine 100 MG TAB PO SCH (09:00)
[2022-05-09] MEDS: busPIRone HCl 10 MG TAB PO SCH (09:01)
[2022-05-09] MEDS: OXcarbazepine 300 MG TAB PO SCH (09:02)
[2022-05-09 17:10] VITALS: BP 123/79; TEMP 97.7
== END 2022-05-09 18:05 | disposition home or self-care (01) | DRG 327 ==
LOC: SURG A 05-08 05:45 → SJJU 05-08 12:06
PROVIDERS: ADMIT Surgery; ATTEND Surgery
PROC: 0D164ZA Bypass Stomach to Jejunum, Percutaneous Endoscopic Approach (ICD-10-PCS; principal; 2022-05-08)
PROC: 0DJ08ZZ Inspection of Upper Intestinal Tract, Via Natural or Artificial Opening Endoscopic (ICD-10-PCS; 2022-05-08)
DX: K21.00 Gastro-esophageal reflux disease with esophagitis, without bleeding (principal); I50.22 Chronic systolic (congestive) heart failure; Z68.42 Body mass index [BMI] 45.0-49.9, adult; K29.00 Acute gastritis without bleeding; Z20.822 Contact with and (suspected) exposure to COVID-19; K22.81 Esophageal polyp; F32.A Depression, unspecified; F41.9 Anxiety disorder, unspecified; I11.0 Hypertensive heart disease with heart failure; H91.90 Unspecified hearing loss, unspecified ear; E66.01 Morbid (severe) obesity due to excess calories; Z88.1 Allergy status to other antibiotic agents; Z88.0 Allergy status to penicillin; Z88.2 Allergy status to sulfonamides; Z95.0 Presence of cardiac pacemaker; Z79.899 Other long term (current) drug therapy; Z87.891 Personal history of nicotine dependence
CPT/HCPCS: 36415; 80048; 85025; 94760; C9113; J1100; J1650; J1885; J1956; J2405; J2704; J2765; J3010; J3480; S0028

== ENCOUNTER 2022-05-09 23:29 | Emergency (ER) | payer MEDICARE, MEDICAID | END 2022-05-10 00:31 | disposition left against medical advice (07) | LOC: ERS 23:29 | DX: Z53.21 Procedure and treatment not carried out due to patient leaving prior to being seen by health care provider (principal) ==

== ENCOUNTER 2022-05-10 16:51 | Emergency (ER) | payer MEDICARE, OTHER ==
[2022-05-10 17:41] LABS: #Basophils 0.1 thou/uL (0.0-0.2); #Eosinphils 0.3 thou/uL (0.0-0.7); #Lymphocytes 2.1 thou/uL (1.20-3.40); #Neutrophils 5.9 thou/uL (1.40-6.50); %Basophils 0.6 % (0.0-1.0); %Eosinophils 2.9 % (0.0-10.0); %Neutrophils 63.6 % (42.0-75.0); Hemoglobin 12.5 g/dL (14.0-18.0); Mean Corpuscular HGB CONC 32.4 g/dL (32.0-36.0); Mean Corpuscular Hemoglobin 31.3 pg (27.0-31.0); Mean Corpuscular Volume 96.5 fL (78.0-98.0); Mean Platelet Volume 7.5 fL (7.4-10.4); Platelet Count 200 thou/uL (130-400); RBC Distribution Width 12.2 % (11.5-14.5); White Blood Cell (WBC) Count 9.3 thou/uL (4.8-10.8)
[2022-05-10 17:53] LABS: Prothrombin Time 13.6 sec (12.0-14.7)
[2022-05-10 17:54] LABS: PTT 36.3 sec (22.9-36.1)
[2022-05-10 18:06] LABS: ALT (SGPT) 110 U/L (8-55); AST (SGOT) 95 U/L (5-34); Albumin 3.8 g/dL (3.5-5.0); Alkaline Phosphatase 85 U/L (40-110); Anion Gap 14 mmol/L (10-20); BUN (Urea Nitrogen) 15 mg/dL (8.9-20.6); Bilirubin, Total 0.6 mg/dL (0.2-1.2); Calc. Creatinine Clearance 0 mL/min (70-130); Calcium 8.9 mg/dL (7.8-10.44); Carbon Dioxide 27 mmol/L (22-29); Chloride 100 mmol/L (98-107); Estimated GFR 62; Globulin 2.9 g/dL (2.4-3.5); Glucose 90 mg/dL (70-105); Potassium 3.6 mmol/L (3.5-5.1); Protein, Total 6.7 g/dL (6.0-8.3); Sodium 137 mmol/L (136-145)
== END 2022-05-10 20:12 | disposition home or self-care (01) ==
LOC: ERS 16:51
DX: R20.0 Anesthesia of skin (principal); Z87.891 Personal history of nicotine dependence
CPT/HCPCS: 36415; 70450; 80053; 84484; 85025; 85610; 85730; 93005

== ENCOUNTER 2022-05-25 14:42 | Inpatient (IN) | payer MEDICARE, MEDICAID ==
[~2022-05-25 14:42] MED LIST changes: +GASTROGRAFIN 30 ML BOT ONE
[2022-05-25] MEDS ORDERED: Morphine 4 MG/ML VIAL ONE ×2 (15:33→20:13)
[2022-05-25] MEDS ORDERED: Ondansetron PF 4 MG/2 ML Vial ONE (15:33)
[2022-05-25 16:16] LABS: #Eosinphils 0.2 thou/uL (0.0-0.7); #Lymphocytes 2.4 thou/uL (1.20-3.40); #Monocytes 0.9 thou/uL (0.11-0.59); #Neutrophils 3.9 thou/uL (1.40-6.50); %Basophils 0.5 % (0.0-1.0); %Eosinophils 2.6 % (0.0-10.0); %Lymphocytes 32.4 % (21.0-51.0); %Monocytes 11.9 % (0.0-10.0); %Neutrophils 52.5 % (42.0-75.0); Hemoglobin 13.4 g/dL (14.0-18.0); Mean Corpuscular HGB CONC 32.8 g/dL (32.0-36.0); Mean Corpuscular Hemoglobin 30.7 pg (27.0-31.0); Mean Corpuscular Volume 93.8 fL (78.0-98.0); Mean Platelet Volume 7.6 fL (7.4-10.4); Platelet Count 389 thou/uL (130-400); RBC Distribution Width 12.2 % (11.5-14.5); Red Blood Cell (RBC) Count 4.36 mill/uL (4.70-6.10); White Blood Cell (WBC) Count 7.4 thou/uL (4.8-10.8)
[2022-05-25 16:32] LABS: Lactic Acid 0.8 mmol/L (0.5-2.2)
[2022-05-25 16:38] LABS: ALT (SGPT) 15 U/L (8-55); AST (SGOT) 14 U/L (5-34); Albumin 4.2 g/dL (3.5-5.0); Alkaline Phosphatase 95 U/L (40-110); Anion Gap 15 mmol/L (10-20); BUN (Urea Nitrogen) 13 mg/dL (8.9-20.6); Bilirubin, Total 0.6 mg/dL (0.2-1.2); Calc. Creatinine Clearance 0 mL/min (70-130); Calcium 9.7 mg/dL (7.8-10.44); Carbon Dioxide 30 mmol/L (22-29); Chloride 99 mmol/L (98-107); Estimated GFR 49; Globulin 3.4 g/dL (2.4-3.5); Glucose 97 mg/dL (70-105); Lipase 102 U/L (8-78); Potassium 3.6 mmol/L (3.5-5.1); Protein, Total 7.6 g/dL (6.0-8.3); Sodium 140 mmol/L (136-145)
[2022-05-25 18:29] LABS: SARS-CoV-2 NAA Rapid Test Not Detected (NotDetected)
[2022-05-25] MEDS ORDERED: hydrALAZINE 20 MG/ML VIAL SLOW IVP PRN (18:43)
[2022-05-25] MEDS ORDERED: Ondansetron ODT 4 MG TAB PO PRN ×2 (18:43→18:50)
[2022-05-25] MEDS ORDERED: Morphine 2 MG/ML VIAL SLOW IVP PRN (18:43)
[2022-05-25] MEDS ORDERED: Prazosin HCl 1 MG CAP PO SCH (21:00)
[2022-05-25] MEDS: OXcarbazepine 300 MG TAB PO SCH (21:18)
[2022-05-25] MEDS: Amitriptyline HCl 25 MG TAB PO SCH (21:19)
[2022-05-25] MEDS: busPIRone HCl 10 MG TAB PO SCH (21:19)
[2022-05-25] MEDS: Enoxaparin Sodium 40 MG/0.4 ML SYRINGE SC SCH (21:37)
[2022-05-25] MEDS: Ondansetron PF 4 MG/2 ML Vial IVP PRN (21:37)
[2022-05-25] MEDS: Pantoprazole 40 MG VIAL IVP SCH (21:38)
[2022-05-25] MEDS: Multivitamins, Adult 10 ML, Folic Acid 1 MG, Thiamine HCl 100 MG in Dextrose 5 %-0.45 %... IV SCH (21:38)
[2022-05-25] MEDS: Sodium Chloride 0.45% 1,000 ML IV SCH (21:38)
[2022-05-25 23:34] VITALS: BMI 46.7
[2022-05-26] MEDS: Morphine 4 MG/ML VIAL SLOW IVP PRN ×4 (00:03→21:00)
[2022-05-26] MEDS: Ondansetron PF 4 MG/2 ML Vial IVP PRN ×2 (03:54→20:59)
[2022-05-26] MEDS: Sodium Chloride 0.45% 1,000 ML IV SCH ×3 (05:37→21:00)
[2022-05-26 06:02] LABS: #Basophils 0.1 thou/uL (0.0-0.2); #Eosinphils 0.3 thou/uL (0.0-0.7); #Lymphocytes 2.4 thou/uL (1.20-3.40); #Monocytes 0.9 thou/uL (0.11-0.59); #Neutrophils 4.9 thou/uL (1.40-6.50); %Basophils 0.7 % (0.0-1.0); %Eosinophils 3.2 % (0.0-10.0); %Lymphocytes 28.8 % (21.0-51.0); %Neutrophils 57.4 % (42.0-75.0); Hemoglobin 13.1 g/dL (14.0-18.0); Mean Corpuscular HGB CONC 32.9 g/dL (32.0-36.0); Mean Corpuscular Hemoglobin 31.5 pg (27.0-31.0); Mean Corpuscular Volume 95.7 fL (78.0-98.0); Mean Platelet Volume 7.5 fL (7.4-10.4); Platelet Count 372 thou/uL (130-400); RBC Distribution Width 12.3 % (11.5-14.5); Red Blood Cell (RBC) Count 4.14 mill/uL (4.70-6.10); White Blood Cell (WBC) Count 8.5 thou/uL (4.8-10.8)
[2022-05-26 06:28] LABS: ALT (SGPT) 14 U/L (8-55); AST (SGOT) 14 U/L (5-34); Alkaline Phosphatase 87 U/L (40-110); Anion Gap 12 mmol/L (10-20); BUN (Urea Nitrogen) 12 mg/dL (8.9-20.6); Bilirubin, Total 0.4 mg/dL (0.2-1.2); Calc. Creatinine Clearance 127 mL/min (70-130); Calcium 9.3 mg/dL (7.8-10.44); Carbon Dioxide 33 mmol/L (22-29); Chloride 98 mmol/L (98-107); Estimated GFR 50; Globulin 3.1 g/dL (2.4-3.5); Glucose 103 mg/dL (70-105); Potassium 3.3 mmol/L (3.5-5.1); Protein, Total 7.1 g/dL (6.0-8.3); Sodium 140 mmol/L (136-145)
[2022-05-26] MEDS: Carvedilol 25 MG TAB PO SCH ×2 (08:11→16:08)
[2022-05-26] MEDS ORDERED: Vortioxetine Hydrobromide [Trintellix] 20 MG Tablet PO SCH (09:00)
[2022-05-26] MEDS ORDERED: Ketamine 50 MG/ML (10ML VIAL) ONE (10:50)
[2022-05-26] MEDS ORDERED: PROPOFOL 200 MG/20 ML VIAL ONE (11:04)
[2022-05-26] MEDS: OXcarbazepine 300 MG TAB PO SCH (11:26)
[2022-05-26] MEDS: busPIRone HCl 10 MG TAB PO SCH (11:26)
[2022-05-26] MEDS ORDERED: Promethazine HCl 25 MG/ML VIAL IVPB PRN (11:36)
[2022-05-26] MEDS ORDERED: Ondansetron HCl/PF 4 MG/2 ML Vial IVP PRN (11:36)
[2022-05-26] MEDS ORDERED: Promethazine HCl 25 MG/ML VIAL IM PRN (11:36)
[2022-05-26] MEDS: Pantoprazole 40 MG VIAL IVP SCH ×2 (12:58→20:59)
[2022-05-26] MEDS ORDERED: Cepastat Lozenges 1 LOZ PO PRN (15:58)
[2022-05-26] MEDS: Hydrocodone-Acetamin 15 ML UDCUP PO PRN (16:08)
[2022-05-26] MEDS: Gabapentin 400 MG CAP PO SCH (17:57)
[2022-05-26] MEDS: Enoxaparin Sodium 40 MG/0.4 ML SYRINGE SC SCH (20:59)
[2022-05-26] MEDS: Amitriptyline HCl 25 MG TAB PO SCH (20:59)
[2022-05-26] MEDS: Multivitamins, Adult 10 ML, Folic Acid 1 MG, Thiamine HCl 100 MG in Dextrose 5 %-0.45 %... IV SCH (22:07)
[2022-05-27] MEDS: ALPRAZolam 0.5 MG TAB PO PRN ×2 (00:40→21:38)
[2022-05-27] MEDS: Sodium Chloride 0.45% 1,000 ML IV SCH ×3 (05:22→18:57)
[2022-05-27] MEDS: Morphine 4 MG/ML VIAL SLOW IVP PRN ×3 (06:57→21:49)
[2022-05-27] MEDS: Gabapentin 400 MG CAP PO SCH ×3 (08:25→21:37)
[2022-05-27] MEDS: Pantoprazole 40 MG VIAL IVP SCH ×2 (08:25→21:37)
[2022-05-27] MEDS: Carvedilol 25 MG TAB PO SCH ×2 (08:25→17:46)
[2022-05-27] MEDS: Ondansetron PF 4 MG/2 ML Vial IVP PRN ×2 (08:26→21:49)
[2022-05-27] MEDS ORDERED: MD-Gastroview 120 ML BOT ONE (16:04)
[2022-05-27] MEDS: Hydrocodone-Acetamin 15 ML UDCUP PO PRN (17:45)
[2022-05-27] MEDS: Enoxaparin Sodium 40 MG/0.4 ML SYRINGE SC SCH (21:36)
[2022-05-27] MEDS: Multivitamins, Adult 10 ML, Folic Acid 1 MG, Thiamine HCl 100 MG in Dextrose 5 %-0.45 %... IV SCH (21:36)
[2022-05-27] MEDS: Amitriptyline HCl 25 MG TAB PO SCH (21:37)
[2022-05-28] MEDS: Hydrocodone-Acetamin 15 ML UDCUP PO PRN ×3 (00:29→14:27)
[2022-05-28] MEDS: Sodium Chloride 0.45% 1,000 ML IV SCH ×3 (02:18→18:51)
[2022-05-28] MEDS: Ondansetron PF 4 MG/2 ML Vial IVP PRN ×2 (08:43→20:38)
[2022-05-28] MEDS: Pantoprazole 40 MG VIAL IVP SCH ×2 (08:43→19:57)
[2022-05-28 08:44] LABS: #Basophils 0.1 thou/uL (0.0-0.2); #Eosinphils 0.4 thou/uL (0.0-0.7); #Lymphocytes 2.1 thou/uL (1.20-3.40); #Monocytes 0.6 thou/uL (0.11-0.59); #Neutrophils 1.8 thou/uL (1.40-6.50); %Basophils 1.2 % (0.0-1.0); %Eosinophils 7.3 % (0.0-10.0); %Lymphocytes 43.1 % (21.0-51.0); %Monocytes 12.9 % (0.0-10.0); %Neutrophils 35.5 % (42.0-75.0); Hemoglobin 11.6 g/dL (14.0-18.0); Mean Corpuscular Hemoglobin 30.2 pg (27.0-31.0); Mean Corpuscular Volume 94.4 fL (78.0-98.0); Mean Platelet Volume 7.5 fL (7.4-10.4); Platelet Count 334 thou/uL (130-400); RBC Distribution Width 12.1 % (11.5-14.5); Red Blood Cell (RBC) Count 3.85 mill/uL (4.70-6.10); White Blood Cell (WBC) Count 4.9 thou/uL (4.8-10.8)
[2022-05-28] MEDS: Carvedilol 25 MG TAB PO SCH ×2 (08:44→17:19)
[2022-05-28] MEDS: Gabapentin 400 MG CAP PO SCH ×3 (08:45→19:58)
[2022-05-28 09:17] LABS: ALT (SGPT) 10 U/L (8-55); AST (SGOT) 15 U/L (5-34); Albumin 3.7 g/dL (3.5-5.0); Alkaline Phosphatase 76 U/L (40-110); Anion Gap 13 mmol/L (10-20); BUN (Urea Nitrogen) 8 mg/dL (8.9-20.6); Bilirubin, Total 0.5 mg/dL (0.2-1.2); Calc. Creatinine Clearance 166 mL/min (70-130); Calcium 8.8 mg/dL (7.8-10.44); Carbon Dioxide 27 mmol/L (22-29); Chloride 97 mmol/L (98-107); Estimated GFR 69; Globulin 2.7 g/dL (2.4-3.5); Glucose 98 mg/dL (70-105); Potassium 3.3 mmol/L (3.5-5.1); Protein, Total 6.4 g/dL (6.0-8.3); Sodium 134 mmol/L (136-145)
[2022-05-28] MEDS: Amitriptyline HCl 25 MG TAB PO SCH (19:57)
[2022-05-28] MEDS: Enoxaparin Sodium 40 MG/0.4 ML SYRINGE SC SCH (19:57)
[2022-05-28] MEDS: Morphine 4 MG/ML VIAL SLOW IVP PRN (20:37)
[2022-05-28] MEDS: Multivitamins, Adult 10 ML, Folic Acid 1 MG, Thiamine HCl 100 MG in Dextrose 5 %-0.45 %... IV SCH (22:48)
[2022-05-29] MEDS: Sodium Chloride 0.45% 1,000 ML IV SCH ×2 (04:49→10:34)
[2022-05-29] MEDS: Carvedilol 25 MG TAB PO SCH (08:09)
[2022-05-29] MEDS: Gabapentin 400 MG CAP PO SCH ×2 (08:10→11:31)
[2022-05-29] MEDS: Pantoprazole 40 MG VIAL IVP SCH (08:10)
[2022-05-29] MEDS: Ondansetron PF 4 MG/2 ML Vial IVP PRN (08:23)
[2022-05-29] MEDS: Hydrocodone-Acetamin 15 ML UDCUP PO PRN (08:23)
[2022-05-29 12:31] VITALS: BP 145/79; TEMP 97.8
== END 2022-05-29 14:55 | disposition home or self-care (01) | DRG 389 ==
LOC: ERS 14:42 → SURG A 17:26 → OBSVTOIN 05-27 10:48
PROVIDERS: ADMIT Specialist; ATTEND Specialist
PROC: 0DJ08ZZ Inspection of Upper Intestinal Tract, Via Natural or Artificial Opening Endoscopic (ICD-10-PCS; principal; 2022-05-26)
DX: K56.609 Unspecified intestinal obstruction, unspecified as to partial versus complete obstruction (principal); I50.22 Chronic systolic (congestive) heart failure; I42.9 Cardiomyopathy, unspecified; Z68.42 Body mass index [BMI] 45.0-49.9, adult; I13.0 Hypertensive heart and chronic kidney disease with heart failure and stage 1 through stage 4 chronic kidney disease, or unspecified chronic kidney disease; E66.01 Morbid (severe) obesity due to excess calories; N18.9 Chronic kidney disease, unspecified; F32.A Depression, unspecified; F41.9 Anxiety disorder, unspecified; E86.0 Dehydration; K21.9 Gastro-esophageal reflux disease without esophagitis; E16.2 Hypoglycemia, unspecified; M10.9 Gout, unspecified; Z20.822 Contact with and (suspected) exposure to COVID-19; K25.9 Gastric ulcer, unspecified as acute or chronic, without hemorrhage or perforation; Z98.890 Other specified postprocedural states; Z88.0 Allergy status to penicillin; Z88.2 Allergy status to sulfonamides; Z95.0 Presence of cardiac pacemaker; Z88.1 Allergy status to other antibiotic agents
CPT/HCPCS: 36415; 36416; 74177; 74240; 76705; 80053; 83605; 83690; 85025; 96361; 96366; 96372; 96374; 96375; 96376; C9113; G0378; J1650; J2270; J2405; J2704; J3411; J7042; Q0162; Q9963; Q9967; U0002

== ENCOUNTER 2022-05-31 17:16 | Inpatient (IN) | payer MEDICARE, MEDICAID ==
[2022-05-31 17:53] LABS: Hemoglobin 12.1 g/dL (14.0-18.0); Mean Corpuscular HGB CONC 32.9 g/dL (32.0-36.0); Mean Corpuscular Hemoglobin 30.6 pg (27.0-31.0); Mean Corpuscular Volume 93.1 fL (78.0-98.0); Mean Platelet Volume 7.2 fL (7.4-10.4); Platelet Count 316 thou/uL (130-400); RBC Distribution Width 12.2 % (11.5-14.5); Red Blood Cell (RBC) Count 3.95 mill/uL (4.70-6.10); White Blood Cell (WBC) Count 15.9 thou/uL (4.8-10.8)
[2022-05-31 18:16] LABS: ALT (SGPT) 13 U/L (8-55); AST (SGOT) 17 U/L (5-34); Albumin 3.5 g/dL (3.5-5.0); Alkaline Phosphatase 77 U/L (40-110); Anion Gap 17 mmol/L (10-20); BUN (Urea Nitrogen) 6 mg/dL (8.9-20.6); Bilirubin, Total 0.8 mg/dL (0.2-1.2); CK (CPK) 123 U/L (30-200); Calc. Creatinine Clearance 0 mL/min (70-130); Calcium 8.7 mg/dL (7.8-10.44); Carbon Dioxide 22 mmol/L (22-29); Chloride 105 mmol/L (98-107); Estimated GFR 62; Globulin 2.2 g/dL (2.4-3.5); Glucose 93 mg/dL (70-105); Lipase 58 U/L (8-78); Magnesium 1.3 mg/dL (1.6-2.6); Potassium 3.9 mmol/L (3.5-5.1); Protein, Total 5.7 g/dL (6.0-8.3); Sodium 140 mmol/L (136-145)
[2022-05-31] MEDS ORDERED: diphenhydrAMINE 50 MG/ML VIAL ONE (18:16)
[2022-05-31] MEDS ORDERED: Metoclopramide HCl 10 MG/2 ML VIAL ONE (18:16)
[2022-05-31 18:18] LABS: MDiff Complete? YES
[2022-05-31 18:19] LABS: Band 2 % (5-11); Burr Cells SLIGHT = 2-5 cells (100X) (0-1/hpf); Lymphocytes 4 % (21-51); Monocytes 8 % (0-10); Neutrophil 85 % (42-75); Platelet Morphology Comment Appears Adequate; Polychromasia SLIGHT = 2-3 cells (100X) (0-2/hpf); Reactive Lymphocytes 1 % (0-10)
[2022-05-31] MEDS ORDERED: Magnesium 2 GM/50 ML(in water) 2 GM in Premix Bag 1 BAG IVPB SCH (19:45)
[2022-05-31] MEDS ORDERED: Thiamine HCl 200 MG/2 ML VIAL SLOW IVP SCH (19:45)
[2022-05-31] MEDS ORDERED: Magnesium 2 GM/50 ML BAG (IN WATER) ONE (19:49)
[2022-05-31 21:29] LABS: CKMB 0.7 ng/mL (0-6.6)
[2022-05-31 22:43] VITALS: BMI 49.2
[2022-06-01] MEDS ORDERED: Acetaminophen 325 MG TAB PO PRN (01:29)
[2022-06-01] MEDS ORDERED: Meropenem 1 GM in Sodium Chloride 0.9% 100 ML IVPB SCH ×2 (01:30→02:00)
[2022-06-01] MEDS ORDERED: OXcarbazepine 300 MG TAB PO SCH (02:00)
[2022-06-01] MEDS: Ondansetron PF 4 MG/2 ML Vial IVP PRN ×2 (02:03→11:55)
[2022-06-01] MEDS ORDERED: Sodium Chloride 0.9% 1,000 ML IV SCH (03:30)
[2022-06-01 04:31] LABS: #Eosinphils 0.1 thou/uL (0.0-0.7); #Lymphocytes 2.1 thou/uL (1.20-3.40); #Monocytes 1.3 thou/uL (0.11-0.59); #Neutrophils 11.3 thou/uL (1.40-6.50); %Basophils 0.3 % (0.0-1.0); %Eosinophils 0.4 % (0.0-10.0); %Lymphocytes 14.3 % (21.0-51.0); Hemoglobin 11.7 g/dL (14.0-18.0); Mean Corpuscular HGB CONC 33.4 g/dL (32.0-36.0); Mean Corpuscular Hemoglobin 30.8 pg (27.0-31.0); Mean Corpuscular Volume 92.4 fL (78.0-98.0); Mean Platelet Volume 7.4 fL (7.4-10.4); Platelet Count 315 thou/uL (130-400); RBC Distribution Width 12.2 % (11.5-14.5); Red Blood Cell (RBC) Count 3.78 mill/uL (4.70-6.10); White Blood Cell (WBC) Count 14.9 thou/uL (4.8-10.8)
[2022-06-01 04:48] LABS: Anion Gap 13 mmol/L (10-20); BUN (Urea Nitrogen) 6 mg/dL (8.9-20.6); Calc. Creatinine Clearance 145 mL/min (70-130); Calcium 8.7 mg/dL (7.8-10.44); Carbon Dioxide 25 mmol/L (22-29); Chloride 105 mmol/L (98-107); Estimated GFR 57; Glucose 98 mg/dL (70-105); Magnesium 1.7 mg/dL (1.6-2.6); Potassium 3.5 mmol/L (3.5-5.1); Sodium 139 mmol/L (136-145)
[2022-06-01] MEDS: Meropenem 1 GM in Sodium Chloride 0.9% 100 ML IVPB SCH ×2 (08:36→18:12)
[2022-06-01] MEDS: Enoxaparin Sodium 40 MG/0.4 ML SYRINGE SC SCH (08:36)
[2022-06-01] MEDS ORDERED: Prevnar 13-Val Conj/PF 0.5 ML SYRINGE IM ONE (09:00)
[2022-06-01] MEDS: Thiamine HCl 200 MG/2 ML VIAL SLOW IVP SCH (11:55)
[2022-06-01] MEDS: Carvedilol 6.25 MG TAB PO SCH (15:56)
[2022-06-01] MEDS: Gabapentin 400 MG CAP PO SCH ×2 (15:56→20:31)
[2022-06-01] MEDS ORDERED: hydrALAZINE 20 MG/ML VIAL SLOW IVP PRN (19:32)
[2022-06-01] MEDS: busPIRone HCl 10 MG TAB PO SCH (20:33)
[2022-06-01] MEDS ORDERED: Amitriptyline HCl 25 MG TAB PO SCH (21:00)
[2022-06-01] MEDS ORDERED: Allopurinol 300 MG TAB PO SCH (21:00)
[2022-06-01] MEDS ORDERED: Atorvastatin Calcium 20 MG TAB PO SCH (21:00)
[2022-06-01] MEDS ORDERED: ALPRAZolam 0.5 MG TAB PO SCH (21:00)
[2022-06-01] MEDS ORDERED: Lurasidone 20 MG TABLET PO SCH (21:00)
[2022-06-02] MEDS: Meropenem 1 GM in Sodium Chloride 0.9% 100 ML IVPB SCH ×2 (02:41→12:21)
[2022-06-02 04:51] LABS: #Eosinphils 0.3 thou/uL (0.0-0.7); #Lymphocytes 2.6 thou/uL (1.20-3.40); #Monocytes 1.1 thou/uL (0.11-0.59); #Neutrophils 5.6 thou/uL (1.40-6.50); %Basophils 0.4 % (0.0-1.0); %Eosinophils 3.5 % (0.0-10.0); %Lymphocytes 26.7 % (21.0-51.0); %Monocytes 11.4 % (0.0-10.0); Hemoglobin 11.8 g/dL (14.0-18.0); Mean Corpuscular HGB CONC 32.4 g/dL (32.0-36.0); Mean Corpuscular Hemoglobin 30.2 pg (27.0-31.0); Mean Platelet Volume 7.3 fL (7.4-10.4); Platelet Count 316 thou/uL (130-400); RBC Distribution Width 12.3 % (11.5-14.5); Red Blood Cell (RBC) Count 3.92 mill/uL (4.70-6.10); White Blood Cell (WBC) Count 9.7 thou/uL (4.8-10.8)
[2022-06-02 04:59] LABS: Anion Gap 14 mmol/L (10-20); BUN (Urea Nitrogen) 5 mg/dL (8.9-20.6); Calc. Creatinine Clearance 186 mL/min (70-130); Calcium 8.7 mg/dL (7.8-10.44); Carbon Dioxide 23 mmol/L (22-29); Chloride 104 mmol/L (98-107); Estimated GFR 76; Glucose 93 mg/dL (70-105); Magnesium 1.7 mg/dL (1.6-2.6); Potassium 3.5 mmol/L (3.5-5.1); Sodium 137 mmol/L (136-145)
[2022-06-02] MEDS ORDERED: lamoTRIgine 100 MG TAB PO SCH (09:00)
[2022-06-02] MEDS: Ondansetron PF 4 MG/2 ML Vial IVP PRN (09:20)
[2022-06-02] MEDS: Carvedilol 6.25 MG TAB PO SCH (09:26)
[2022-06-02] MEDS: busPIRone HCl 10 MG TAB PO SCH (09:26)
[2022-06-02] MEDS: Enoxaparin Sodium 40 MG/0.4 ML SYRINGE SC SCH (09:31)
[2022-06-02] MEDS: Gabapentin 400 MG CAP PO SCH ×2 (10:42→20:06)
[2022-06-02] MEDS: Thiamine HCl 200 MG/2 ML VIAL SLOW IVP SCH (10:44)
[2022-06-02 13:49] VITALS: BP 136/84; TEMP 98
== END 2022-06-02 16:39 | disposition home or self-care (01) | DRG 871 ==
LOC: ERS 17:16 → 2NO 20:01
PROVIDERS: ADMIT Internal Medicine; ATTEND Internal Medicine
DX: A41.9 Sepsis, unspecified organism (principal); J69.0 Pneumonitis due to inhalation of food and vomit; J18.9 Pneumonia, unspecified organism; I13.0 Hypertensive heart and chronic kidney disease with heart failure and stage 1 through stage 4 chronic kidney disease, or unspecified chronic kidney disease; I50.42 Chronic combined systolic (congestive) and diastolic (congestive) heart failure; Z68.42 Body mass index [BMI] 45.0-49.9, adult; I42.9 Cardiomyopathy, unspecified; Z20.822 Contact with and (suspected) exposure to COVID-19; M10.9 Gout, unspecified; N18.30 Chronic kidney disease, stage 3 unspecified; E66.01 Morbid (severe) obesity due to excess calories; E83.42 Hypomagnesemia; F41.9 Anxiety disorder, unspecified; F32.A Depression, unspecified; Z87.891 Personal history of nicotine dependence; Z96.611 Presence of right artificial shoulder joint; Z88.0 Allergy status to penicillin; Z88.1 Allergy status to other antibiotic agents; Z88.2 Allergy status to sulfonamides; Z95.0 Presence of cardiac pacemaker; Z98.84 Bariatric surgery status; Z79.899 Other long term (current) drug therapy; Z98.890 Other specified postprocedural states
CPT/HCPCS: 36415; 71045; 80048; 80053; 82550; 82553; 83605; 83690; 83735; 83880; 84484; 85025; 87040; 93005; 96361; 96365; 96367; 96375; J0360; J1200; J1650; J1956; J2185; J2405; J2765; J3411; J3475; J3490; J7050; U0003; U0005

== ENCOUNTER 2022-06-04 16:33 | Inpatient (IN) | payer MEDICARE, MEDICAID ==
[~2022-06-04 16:33] MED LIST changes: -GASTROGRAFIN 30 ML BOT ONE; +Iopamidol 370 76% 100 ML VIAL ONE; -Iopamidol-370 76% 500 ML 1 ML ONE
[2022-06-04 17:13] LABS: #Eosinphils 0.2 thou/uL (0.0-0.7); #Lymphocytes 2.1 thou/uL (1.20-3.40); #Monocytes 0.6 thou/uL (0.11-0.59); #Neutrophils 3.6 thou/uL (1.40-6.50); %Basophils 0.7 % (0.0-1.0); %Eosinophils 3.2 % (0.0-10.0); %Lymphocytes 31.5 % (21.0-51.0); %Monocytes 9.5 % (0.0-10.0); %Neutrophils 55.2 % (42.0-75.0); Mean Corpuscular HGB CONC 32.3 g/dL (32.0-36.0); Mean Corpuscular Hemoglobin 29.8 pg (27.0-31.0); Mean Corpuscular Volume 92.3 fL (78.0-98.0); Mean Platelet Volume 7.4 fL (7.4-10.4); Platelet Count 381 thou/uL (130-400); RBC Distribution Width 12.5 % (11.5-14.5); Red Blood Cell (RBC) Count 4.34 mill/uL (4.70-6.10); White Blood Cell (WBC) Count 6.6 thou/uL (4.8-10.8)
[2022-06-04] MEDS ORDERED: Ondansetron PF 4 MG/2 ML Vial ONE (17:24)
[2022-06-04] MEDS ORDERED: Morphine 4 MG/ML VIAL ONE ×2 (17:24→20:31)
[2022-06-04 17:35] LABS: ALT (SGPT) 21 U/L (8-55); AST (SGOT) 25 U/L (5-34); Alkaline Phosphatase 84 U/L (40-110); Anion Gap 16 mmol/L (10-20); BUN (Urea Nitrogen) 6 mg/dL (8.9-20.6); Bilirubin, Total 0.9 mg/dL (0.2-1.2); Calc. Creatinine Clearance 0 mL/min (70-130); Calcium 9.3 mg/dL (7.8-10.44); Carbon Dioxide 23 mmol/L (22-29); Chloride 102 mmol/L (98-107); Estimated GFR 71; Globulin 3.1 g/dL (2.4-3.5); Glucose 92 mg/dL (70-105); Lipase 189 U/L (8-78); Potassium 3.7 mmol/L (3.5-5.1); Protein, Total 7.1 g/dL (6.0-8.3); Sodium 137 mmol/L (136-145)
[2022-06-04] MEDS ORDERED: Ondansetron ODT 4 MG TAB PO PRN (21:29)
[2022-06-04] MEDS ORDERED: Acetaminophen 325 MG TAB PO PRN (21:29)
[2022-06-04] MEDS ORDERED: Acetaminophen 650 MG Suppository PR PRN (21:29)
[2022-06-04] MEDS: Ondansetron PF 4 MG/2 ML Vial IVP PRN (21:56)
[2022-06-04] MEDS: Morphine 4 MG/ML VIAL SLOW IVP PRN (22:00)
[2022-06-04] MEDS ORDERED: Sodium Chloride 0.9% 1,000 ML IV SCH (22:00)
[2022-06-04] MEDS ORDERED: Midazolam HCl 2 mg/2 ml Vial SLOW IVP PRN (22:42)
[2022-06-04] MEDS ORDERED: cefTRIAXone\\ROCEPHIN 1 GM in Sodium Chloride 0.9% 100 ML IVPB SCH (23:45)
[2022-06-04] MEDS ORDERED: Azithromycin 500 MG in Sodium Chloride 0.9% 250 ML 250 ML IVPB SCH (23:45)
[2022-06-05] MEDS: Sodium Chloride 0.9% 1,000 ML IV SCH ×3 (00:01→14:39)
[2022-06-05 00:50] VITALS: BMI 47.7
[2022-06-05] MEDS: Morphine 4 MG/ML VIAL SLOW IVP PRN ×4 (05:08→21:27)
[2022-06-05] MEDS: Ondansetron PF 4 MG/2 ML Vial IVP PRN ×3 (05:08→21:27)
[2022-06-05 06:42] LABS: #Eosinphils 0.3 thou/uL (0.0-0.7); #Lymphocytes 2.1 thou/uL (1.20-3.40); #Monocytes 0.6 thou/uL (0.11-0.59); #Neutrophils 2.7 thou/uL (1.40-6.50); %Basophils 0.7 % (0.0-1.0); %Eosinophils 4.5 % (0.0-10.0); %Lymphocytes 36.6 % (21.0-51.0); %Monocytes 10.8 % (0.0-10.0); %Neutrophils 47.3 % (42.0-75.0); Hemoglobin 11.7 g/dL (14.0-18.0); Mean Corpuscular HGB CONC 31.5 g/dL (32.0-36.0); Mean Corpuscular Hemoglobin 29.8 pg (27.0-31.0); Mean Corpuscular Volume 94.3 fL (78.0-98.0); Mean Platelet Volume 7.3 fL (7.4-10.4); Platelet Count 339 thou/uL (130-400); RBC Distribution Width 12.3 % (11.5-14.5); Red Blood Cell (RBC) Count 3.95 mill/uL (4.70-6.10); White Blood Cell (WBC) Count 5.7 thou/uL (4.8-10.8)
[2022-06-05 07:04] LABS: Anion Gap 14 mmol/L (10-20); BUN (Urea Nitrogen) 6 mg/dL (8.9-20.6); Calc. Creatinine Clearance 191 mL/min (70-130); Calcium 8.8 mg/dL (7.8-10.44); Carbon Dioxide 25 mmol/L (22-29); Chloride 102 mmol/L (98-107); Estimated GFR 82; Glucose 93 mg/dL (70-105); Potassium 3.5 mmol/L (3.5-5.1); Sodium 137 mmol/L (136-145)
[2022-06-05] MEDS ORDERED: ALPRAZolam 0.5 MG TAB PO PRN (07:18)
[2022-06-05] MEDS: Enoxaparin Sodium 40 MG/0.4 ML SYRINGE SC SCH ×2 (08:56→09:09)
[2022-06-05] MEDS: Furosemide 40 MG/4 ML VIAL SLOW IVP SCH (08:56)
[2022-06-05] MEDS: lamoTRIgine 100 MG TAB PO SCH (08:56)
[2022-06-05] MEDS: busPIRone HCl 10 MG TAB PO SCH ×2 (08:57→20:15)
[2022-06-05] MEDS: Carvedilol 6.25 MG TAB PO SCH ×2 (08:57→20:15)
[2022-06-05] MEDS: OXcarbazepine 300 MG TAB PO SCH ×2 (08:58→20:16)
[2022-06-05] MEDS ORDERED: hydrALAZINE 20 MG/ML VIAL SLOW IVP PRN (09:06)
[2022-06-05 13:24] LABS: ALT (SGPT) 17 U/L (8-55); AST (SGOT) 20 U/L (5-34); Albumin 3.5 g/dL (3.5-5.0); Alkaline Phosphatase 75 U/L (40-110); Bilirubin, Direct 0.3 mg/dL (0.1-0.3); Bilirubin, Total 0.7 mg/dL (0.2-1.2); Protein, Total 6.1 g/dL (6.0-8.3)
[2022-06-05] MEDS: Atorvastatin Calcium 20 MG TAB PO SCH (20:15)
[2022-06-05] MEDS: Prazosin HCl 1 MG CAP PO SCH (20:15)
[2022-06-05] MEDS: Amitriptyline HCl 25 MG TAB PO SCH (20:16)
[2022-06-05] MEDS ORDERED: Non-Formulary Item 1 EACH (Lurasidone 20 MG Tab) PO SCH (21:00)
[2022-06-06 06:03] LABS: #Eosinphils 0.3 thou/uL (0.0-0.7); #Lymphocytes 2.2 thou/uL (1.20-3.40); #Monocytes 0.6 thou/uL (0.11-0.59); #Neutrophils 2.8 thou/uL (1.40-6.50); %Basophils 0.8 % (0.0-1.0); %Lymphocytes 37.1 % (21.0-51.0); %Monocytes 10.5 % (0.0-10.0); %Neutrophils 46.8 % (42.0-75.0); Hemoglobin 11.2 g/dL (14.0-18.0); Mean Corpuscular HGB CONC 31.8 g/dL (32.0-36.0); Mean Corpuscular Volume 94.4 fL (78.0-98.0); Mean Platelet Volume 7.7 fL (7.4-10.4); Platelet Count 328 thou/uL (130-400); RBC Distribution Width 12.2 % (11.5-14.5); Red Blood Cell (RBC) Count 3.74 mill/uL (4.70-6.10); White Blood Cell (WBC) Count 5.9 thou/uL (4.8-10.8)
[2022-06-06] MEDS: Sodium Chloride 0.9% 1,000 ML IV SCH (06:12)
[2022-06-06 06:25] LABS: ALT (SGPT) 13 U/L (8-55); AST (SGOT) 15 U/L (5-34); Albumin 3.5 g/dL (3.5-5.0); Alkaline Phosphatase 77 U/L (40-110); Anion Gap 13 mmol/L (10-20); BUN (Urea Nitrogen) 8 mg/dL (8.9-20.6); Bilirubin, Total 0.6 mg/dL (0.2-1.2); Calc. Creatinine Clearance 177 mL/min (70-130); Calcium 8.7 mg/dL (7.8-10.44); Carbon Dioxide 28 mmol/L (22-29); Cardiac Risk 3.6 (Less than 4.5); Chloride 101 mmol/L (98-107); Cholesterol 103 mg/dl (< 200 Desired); Estimated GFR 75; Globulin 2.6 g/dL (2.4-3.5); Glucose 89 mg/dL (70-105); HDL Cholesterol 29 mg/dL (>60 Neg Risk); LDL Cholesterol, Calculated 58 mg/dL; Magnesium 1.7 mg/dL (1.6-2.6); Potassium 3.5 mmol/L (3.5-5.1); Protein, Total 6.1 g/dL (6.0-8.3); Sodium 138 mmol/L (136-145); Triglycerides 79 mg/dL (Less than 150)
[2022-06-06] MEDS ORDERED: Sodium Chloride 0.9% 1,000 ML IV SCH (06:33)
[2022-06-06] MEDS: Carvedilol 6.25 MG TAB PO SCH ×2 (07:20→20:52)
[2022-06-06] MEDS: OXcarbazepine 300 MG TAB PO SCH ×2 (07:22→20:53)
[2022-06-06] MEDS: lamoTRIgine 100 MG TAB PO SCH (07:22)
[2022-06-06] MEDS: busPIRone HCl 10 MG TAB PO SCH ×2 (07:22→20:52)
[2022-06-06] MEDS: Furosemide 40 MG/4 ML VIAL SLOW IVP SCH (07:22)
[2022-06-06] MEDS ORDERED: Lidocaine 1% PF 5 ML VIAL ONE (08:40)
[2022-06-06] MEDS ORDERED: PROPOFOL 200 MG/20 ML VIAL ONE (08:40)
[2022-06-06] MEDS: Metoclopramide HCl 10 MG/2 ML VIAL IVP SCH ×2 (14:29→21:21)
[2022-06-06] MEDS ORDERED: Gabapentin 400 MG CAP PO SCH (17:00)
[2022-06-06] MEDS ORDERED: Acetaminophen 325 MG/10.15 ML UDCUP PO PRN (18:39)
[2022-06-06] MEDS: Atorvastatin Calcium 20 MG TAB PO SCH (20:51)
[2022-06-06] MEDS: Amitriptyline HCl 25 MG TAB PO SCH (20:52)
[2022-06-06] MEDS: Furosemide 80 MG TAB PO SCH (20:53)
[2022-06-06] MEDS: Prazosin HCl 1 MG CAP PO SCH (20:53)
[2022-06-06] MEDS ORDERED: Allopurinol 300 MG TAB PO SCH (21:00)
[2022-06-06] MEDS ORDERED: Famotidine 20 MG TAB PO SCH (21:00)
[2022-06-06] MEDS: Gabapentin 400 MG CAP PO SCH (21:04)
[2022-06-06] MEDS: Ondansetron PF 4 MG/2 ML Vial IVP PRN (23:19)
[2022-06-07] MEDS: Metoclopramide HCl 10 MG/2 ML VIAL IVP SCH ×2 (05:58→15:08)
[2022-06-07 06:27] LABS: #Eosinphils 0.3 thou/uL (0.0-0.7); #Monocytes 0.7 thou/uL (0.11-0.59); %Basophils 0.2 % (0.0-1.0); %Eosinophils 4.3 % (0.0-10.0); %Monocytes 9.6 % (0.0-10.0); %Neutrophils 57.9 % (42.0-75.0); Hemoglobin 11.7 g/dL (14.0-18.0); Mean Corpuscular HGB CONC 31.7 g/dL (32.0-36.0); Mean Corpuscular Hemoglobin 29.8 pg (27.0-31.0); Mean Corpuscular Volume 94.1 fL (78.0-98.0); Mean Platelet Volume 7.6 fL (7.4-10.4); Platelet Count 324 thou/uL (130-400); RBC Distribution Width 12.4 % (11.5-14.5); Red Blood Cell (RBC) Count 3.93 mill/uL (4.70-6.10)
[2022-06-07 06:55] LABS: ALT (SGPT) 14 U/L (8-55); AST (SGOT) 17 U/L (5-34); Albumin 3.5 g/dL (3.5-5.0); Alkaline Phosphatase 77 U/L (40-110); Anion Gap 14 mmol/L (10-20); BUN (Urea Nitrogen) 6 mg/dL (8.9-20.6); Bilirubin, Total 0.7 mg/dL (0.2-1.2); Calc. Creatinine Clearance 205 mL/min (70-130); Calcium 8.9 mg/dL (7.8-10.44); Carbon Dioxide 25 mmol/L (22-29); Chloride 103 mmol/L (98-107); Estimated GFR 89; Globulin 2.5 g/dL (2.4-3.5); Glucose 83 mg/dL (70-105); Magnesium 1.9 mg/dL (1.6-2.6); Potassium 3.7 mmol/L (3.5-5.1); Sodium 138 mmol/L (136-145)
[2022-06-07 08:27] VITALS: BP 119/76; TEMP 97.2
[2022-06-07] MEDS: Gabapentin 400 MG CAP PO SCH (08:53)
[2022-06-07] MEDS: OXcarbazepine 300 MG TAB PO SCH (08:53)
[2022-06-07] MEDS: lamoTRIgine 100 MG TAB PO SCH (08:53)
[2022-06-07] MEDS: busPIRone HCl 10 MG TAB PO SCH (08:54)
[2022-06-07] MEDS: Furosemide 80 MG TAB PO SCH (08:54)
[2022-06-07] MEDS: Carvedilol 6.25 MG TAB PO SCH (08:54)
[2022-06-07] MEDS ORDERED: Non-Formulary Item 1 EACH (Gabapentin [Neurontin] 800 MG Tablet) PO SCH (09:00)
[2022-06-07] MEDS ORDERED: Sodium Chloride 0.9% 1,000 ML IV SCH (09:15)
[2022-06-07] MEDS ORDERED: MD-Gastroview 120 ML BOT ONE (09:44)
== END 2022-06-07 15:47 | disposition home or self-care (01) | DRG 394 ==
LOC: ERS 16:33 → T4-A 20:07
PROVIDERS: ADMIT Family Medicine; ATTEND Family Medicine
PROC: 0DJ08ZZ Inspection of Upper Intestinal Tract, Via Natural or Artificial Opening Endoscopic (ICD-10-PCS; principal; 2022-06-06)
DX: K95.89 Other complications of other bariatric procedure (principal); I50.32 Chronic diastolic (congestive) heart failure; Z68.42 Body mass index [BMI] 45.0-49.9, adult; K56.600 Partial intestinal obstruction, unspecified as to cause; K28.9 Gastrojejunal ulcer, unspecified as acute or chronic, without hemorrhage or perforation; Z20.822 Contact with and (suspected) exposure to COVID-19; E66.01 Morbid (severe) obesity due to excess calories; F32.A Depression, unspecified; F41.9 Anxiety disorder, unspecified; Z96.611 Presence of right artificial shoulder joint; R79.89 Other specified abnormal findings of blood chemistry; R91.8 Other nonspecific abnormal finding of lung field; Y83.2 Surgical operation with anastomosis, bypass or graft as the cause of abnormal reaction of the patient, or of later complication, without mention of misadventure at the time of the procedure; Z88.1 Allergy status to other antibiotic agents; Z97.0 Presence of artificial eye; Z98.84 Bariatric surgery status; Z88.0 Allergy status to penicillin; Z88.2 Allergy status to sulfonamides; Z79.899 Other long term (current) drug therapy; Z87.891 Personal history of nicotine dependence; Z95.810 Presence of automatic (implantable) cardiac defibrillator
CPT/HCPCS: 36415; 71045; 74018; 74177; 74250; 80048; 80053; 80061; 80076; 83036; 83605; 83690; 83735; 83880; 84443; 85025; 87081; 93005; 93010; 96361; 96374; 96375; 96376; J1650; J1940; J1956; J2270; J2405; J2704; J2765; J7050; Q9963; Q9967; U0003; U0005

== ENCOUNTER 2022-06-27 15:03 | Inpatient (IN) | payer MEDICARE, MEDICAID ==
[2022-06-27] MEDS ORDERED: Iopamidol-370 76% 500 ML 1 ML ONE (16:05)
[2022-06-27 16:17] LABS: #Basophils 0.1 thou/uL (0.0-0.2); #Eosinphils 0.1 thou/uL (0.0-0.7); #Lymphocytes 1.6 thou/uL (1.20-3.40); #Monocytes 0.9 thou/uL (0.11-0.59); #Neutrophils 7.5 thou/uL (1.40-6.50); %Basophils 0.5 % (0.0-1.0); %Lymphocytes 15.8 % (21.0-51.0); %Monocytes 9.2 % (0.0-10.0); %Neutrophils 73.4 % (42.0-75.0); Hemoglobin 11.6 g/dL (14.0-18.0); Mean Corpuscular HGB CONC 31.4 g/dL (32.0-36.0); Mean Corpuscular Hemoglobin 29.4 pg (27.0-31.0); Mean Corpuscular Volume 93.8 fL (78.0-98.0); Platelet Count 503 thou/uL (130-400); RBC Distribution Width 12.4 % (11.5-14.5); Red Blood Cell (RBC) Count 3.96 mill/uL (4.70-6.10); White Blood Cell (WBC) Count 10.1 thou/uL (4.8-10.8)
[2022-06-27] MEDS ORDERED: Ondansetron PF 4 MG/2 ML Vial ONE (16:29)
[2022-06-27 16:40] LABS: ALT (SGPT) 11 U/L (8-55); AST (SGOT) 17 U/L (5-34); Albumin 3.8 g/dL (3.5-5.0); Alkaline Phosphatase 86 U/L (40-110); Anion Gap 17 mmol/L (10-20); BUN (Urea Nitrogen) 7 mg/dL (8.9-20.6); Bilirubin, Total 1.2 mg/dL (0.2-1.2); Calc. Creatinine Clearance 0 mL/min (70-130); Calcium 9.1 mg/dL (7.8-10.44); Carbon Dioxide 27 mmol/L (22-29); Chloride 96 mmol/L (98-107); Estimated GFR 71; Globulin 3.3 g/dL (2.4-3.5); Glucose 104 mg/dL (70-105); Lipase 220 U/L (8-78); Potassium 3.4 mmol/L (3.5-5.1); Protein, Total 7.1 g/dL (6.0-8.3); Sodium 137 mmol/L (136-145)
[2022-06-27] MEDS ORDERED: Morphine 4 MG/ML VIAL ONE (18:47)
[2022-06-27] MEDS ORDERED: Acetaminophen 325 MG TAB PO PRN (20:15)
[2022-06-27] MEDS ORDERED: Ondansetron ODT 4 MG TAB SL PRN (20:15)
[2022-06-27 21:15] VITALS: BMI 43.2
[2022-06-27] MEDS: Sodium Chloride 0.9% 1,000 ML IV SCH (21:33)
[2022-06-27] MEDS ORDERED: Hydrocodone-Acetamin 15 ML UDCUP PO PRN (23:44)
[2022-06-27] MEDS ORDERED: traMADol HCl 50 MG TAB PO PRN ×2 (23:45)
[2022-06-28] MEDS: Ondansetron PF 4 MG/2 ML Vial IVP PRN ×2 (00:06→06:05)
[2022-06-28] MEDS: Sodium Chloride 0.9% 1,000 ML IV SCH (05:28)
[2022-06-28 05:30] LABS: SARS-CoV-2 NAA Rapid Test Not Detected (NotDetected)
[2022-06-28] MEDS ORDERED: Meropenem 1 GM in Sodium Chloride 0.9% 100 ML IVPB SCH (14:00)
[2022-06-28] MEDS: ALPRAZolam 0.5 MG TAB PO PRN (22:07)
[2022-06-28] MEDS: Metoclopramide HCl 10 MG/2 ML VIAL IVP PRN (22:07)
[2022-06-28] MEDS: Meropenem 1 GM in Sodium Chloride 0.9% 100 ML IVPB SCH (22:07)
[2022-06-29] MEDS: Meropenem 1 GM in Sodium Chloride 0.9% 100 ML IVPB SCH ×3 (05:20→21:37)
[2022-06-29] MEDS: Lurasidone 20 MG TABLET PO SCH (09:58)
[2022-06-29] MEDS: Metoclopramide HCl 10 MG/2 ML VIAL IVP PRN (13:47)
[2022-06-29] MEDS: Gabapentin 300 MG CAP PO SCH ×2 (13:47→21:39)
[2022-06-29] MEDS: Carvedilol 6.25 MG TAB PO SCH (16:48)
[2022-06-29] MEDS: lamoTRIgine 100 MG TAB PO SCH (21:37)
[2022-06-29] MEDS: OXcarbazepine 300 MG/5 ML UDCUP PO SCH (21:38)
[2022-06-29] MEDS: Prazosin HCl 1 MG CAP PO SCH (21:38)
[2022-06-29] MEDS: busPIRone HCl 10 MG TAB PO SCH (21:39)
[2022-06-29] MEDS: Pantoprazole 40 MG VIAL IVP SCH (21:52)
[2022-06-30] MEDS: Meropenem 1 GM in Sodium Chloride 0.9% 100 ML IVPB SCH ×3 (06:10→22:01)
[2022-06-30] MEDS: OXcarbazepine 300 MG/5 ML UDCUP PO SCH ×2 (09:56→21:59)
[2022-06-30] MEDS: Prazosin HCl 1 MG CAP PO SCH ×2 (09:57→22:01)
[2022-06-30] MEDS: Gabapentin 300 MG CAP PO SCH ×3 (09:57→21:59)
[2022-06-30] MEDS: Carvedilol 6.25 MG TAB PO SCH ×2 (09:58→18:25)
[2022-06-30] MEDS: Lurasidone 20 MG TABLET PO SCH (09:58)
[2022-06-30] MEDS: busPIRone HCl 10 MG TAB PO SCH ×2 (09:58→22:01)
[2022-06-30] MEDS: Pantoprazole 40 MG VIAL IVP SCH ×2 (10:14→21:59)
[2022-06-30] MEDS: lamoTRIgine 100 MG TAB PO SCH ×2 (10:55→22:01)
[2022-06-30] MEDS: Allopurinol 300 MG TAB PO SCH (10:55)
[2022-06-30] MEDS: ALPRAZolam 0.5 MG TAB PO PRN (22:06)
[2022-07-01 05:27] LABS: #Basophils 0.1 thou/uL (0.0-0.2); #Eosinphils 0.2 thou/uL (0.0-0.7); #Lymphocytes 2.5 thou/uL (1.20-3.40); #Monocytes 0.9 thou/uL (0.11-0.59); #Neutrophils 4.4 thou/uL (1.40-6.50); %Basophils 0.6 % (0.0-1.0); %Eosinophils 2.6 % (0.0-10.0); %Lymphocytes 30.8 % (21.0-51.0); %Monocytes 11.1 % (0.0-10.0); %Neutrophils 54.9 % (42.0-75.0); Hemoglobin 10.1 g/dL (14.0-18.0); Mean Corpuscular HGB CONC 32.1 g/dL (32.0-36.0); Mean Corpuscular Hemoglobin 29.9 pg (27.0-31.0); Mean Corpuscular Volume 93.3 fL (78.0-98.0); Mean Platelet Volume 7.7 fL (7.4-10.4); Platelet Count 371 thou/uL (130-400); RBC Distribution Width 12.6 % (11.5-14.5); Red Blood Cell (RBC) Count 3.37 mill/uL (4.70-6.10); White Blood Cell (WBC) Count 8.1 thou/uL (4.8-10.8)
[2022-07-01 05:56] LABS: ALT (SGPT) 9 U/L (8-55); AST (SGOT) 13 U/L (5-34); Albumin 3.2 g/dL (3.5-5.0); Alkaline Phosphatase 68 U/L (40-110); Anion Gap 12 mmol/L (10-20); BUN (Urea Nitrogen) 4 mg/dL (8.9-20.6); Calc. Creatinine Clearance 203 mL/min (70-130); Calcium 8.9 mg/dL (7.8-10.44); Carbon Dioxide 24 mmol/L (22-29); Chloride 103 mmol/L (98-107); Estimated GFR 96; Globulin 2.7 g/dL (2.4-3.5); Glucose 94 mg/dL (70-105); Potassium 3.4 mmol/L (3.5-5.1); Protein, Total 5.9 g/dL (6.0-8.3); Sodium 136 mmol/L (136-145)
[2022-07-01] MEDS: Meropenem 1 GM in Sodium Chloride 0.9% 100 ML IVPB SCH (06:36)
[2022-07-01 08:37] VITALS: BP 132/82; TEMP 97.7
[2022-07-01] MEDS: Pantoprazole 40 MG VIAL IVP SCH (08:58)
[2022-07-01] MEDS: OXcarbazepine 300 MG/5 ML UDCUP PO SCH (08:58)
[2022-07-01] MEDS: Prazosin HCl 1 MG CAP PO SCH (08:59)
[2022-07-01] MEDS: lamoTRIgine 100 MG TAB PO SCH (08:59)
[2022-07-01] MEDS: busPIRone HCl 10 MG TAB PO SCH (08:59)
[2022-07-01] MEDS: Allopurinol 300 MG TAB PO SCH (08:59)
[2022-07-01] MEDS: Gabapentin 300 MG CAP PO SCH (09:00)
[2022-07-01] MEDS: Carvedilol 6.25 MG TAB PO SCH (09:00)
[2022-07-01] MEDS: Lurasidone 20 MG TABLET PO SCH (09:00)
== END 2022-07-01 11:02 | disposition home or self-care (01) | DRG 392 ==
LOC: ERS 15:03 → SURG A 18:35
PROVIDERS: ADMIT Surgery; ATTEND Surgery
DX: R13.19 Other dysphagia (principal); I13.0 Hypertensive heart and chronic kidney disease with heart failure and stage 1 through stage 4 chronic kidney disease, or unspecified chronic kidney disease; Q43.3 Congenital malformations of intestinal fixation; Z68.41 Body mass index [BMI] 40.0-44.9, adult; K22.4 Dyskinesia of esophagus; Z20.822 Contact with and (suspected) exposure to COVID-19; M10.9 Gout, unspecified; F41.9 Anxiety disorder, unspecified; F32.A Depression, unspecified; Z96.611 Presence of right artificial shoulder joint; E66.01 Morbid (severe) obesity due to excess calories; E11.22 Type 2 diabetes mellitus with diabetic chronic kidney disease; N18.9 Chronic kidney disease, unspecified; K21.9 Gastro-esophageal reflux disease without esophagitis; I50.9 Heart failure, unspecified; T50.995A Adverse effect of other drugs, medicaments and biological substances, initial encounter; Z95.810 Presence of automatic (implantable) cardiac defibrillator; Z98.84 Bariatric surgery status; Z88.0 Allergy status to penicillin; Z88.1 Allergy status to other antibiotic agents; Z88.2 Allergy status to sulfonamides; Z79.899 Other long term (current) drug therapy; Z87.891 Personal history of nicotine dependence
CPT/HCPCS: 36415; 74018; 74177; 80053; 83690; 85025; 96361; 96374; 96375; C9113; J2185; J2270; J2405; J2765; J3490; J7050; Q9967; U0002

== ENCOUNTER 2022-07-08 21:59 | Emergency (ER) | payer MEDICARE, OTHER ==
[2022-07-08] MEDS ORDERED: Ondansetron PF 4 MG/2 ML Vial ONE (23:23)
[2022-07-09] MEDS ORDERED: Ondansetron ODT 4 MG TAB ONE (00:15)
[2022-07-09] MEDS ORDERED: Morphine 4 MG/ML VIAL ONE (01:19)
[2022-07-09 01:43] LABS: #Basophils 0.1 thou/uL (0.0-0.2); #Eosinphils 0.2 thou/uL (0.0-0.7); #Lymphocytes 2.2 thou/uL (1.20-3.40); #Monocytes 0.6 thou/uL (0.11-0.59); %Basophils 1.1 % (0.0-1.0); %Eosinophils 3.6 % (0.0-10.0); %Lymphocytes 35.9 % (21.0-51.0); %Monocytes 10.4 % (0.0-10.0); Hemoglobin 11.8 g/dL (14.0-18.0); Mean Corpuscular HGB CONC 32.3 g/dL (32.0-36.0); Mean Corpuscular Hemoglobin 30.1 pg (27.0-31.0); Mean Corpuscular Volume 93.1 fL (78.0-98.0); Mean Platelet Volume 8.3 fL (7.4-10.4); Platelet Count 313 thou/uL (130-400); RBC Distribution Width 12.7 % (11.5-14.5); Red Blood Cell (RBC) Count 3.91 mill/uL (4.70-6.10); White Blood Cell (WBC) Count 6.2 thou/uL (4.8-10.8)
[2022-07-09 02:07] LABS: ALT (SGPT) 8 U/L (8-55); AST (SGOT) 13 U/L (5-34); Albumin 3.7 g/dL (3.5-5.0); Alkaline Phosphatase 79 U/L (40-110); Anion Gap 12 mmol/L (10-20); BUN (Urea Nitrogen) 8 mg/dL (8.9-20.6); Calc. Creatinine Clearance 0 mL/min (70-130); Carbon Dioxide 27 mmol/L (22-29); Chloride 102 mmol/L (98-107); Estimated GFR 79; Globulin 2.9 g/dL (2.4-3.5); Glucose 96 mg/dL (70-105); Lipase 170 U/L (8-78); Magnesium 1.8 mg/dL (1.6-2.6); Potassium 3.5 mmol/L (3.5-5.1); Protein, Total 6.6 g/dL (6.0-8.3); Sodium 137 mmol/L (136-145)
== END 2022-07-09 03:09 | disposition home or self-care (01) ==
LOC: ERS 21:59
DX: R11.2 Nausea with vomiting, unspecified (principal); I50.9 Heart failure, unspecified; M10.9 Gout, unspecified; Z79.899 Other long term (current) drug therapy
CPT/HCPCS: 36416; 80053; 83690; 83735; 84484; 85025; 93005; 96374; 96375; J2270; J2405; Q0162

== ENCOUNTER 2022-07-22 21:11 | Emergency (ER) | payer MEDICARE, OTHER ==
[2022-07-22 22:20] LABS: #Eosinphils 0.3 thou/uL (0.0-0.7); #Lymphocytes 2.2 thou/uL (1.20-3.40); #Neutrophils 5.2 thou/uL (1.40-6.50); %Basophils 0.4 % (0.0-1.0); %Eosinophils 2.9 % (0.0-10.0); %Monocytes 11.5 % (0.0-10.0); %Neutrophils 60.2 % (42.0-75.0); Hemoglobin 12.6 g/dL (14.0-18.0); Mean Corpuscular HGB CONC 31.6 g/dL (32.0-36.0); Mean Corpuscular Hemoglobin 28.9 pg (27.0-31.0); Mean Corpuscular Volume 91.7 fL (78.0-98.0); Mean Platelet Volume 8.6 fL (7.4-10.4); Platelet Count 252 thou/uL (130-400); RBC Distribution Width 12.5 % (11.5-14.5); Red Blood Cell (RBC) Count 4.34 mill/uL (4.70-6.10); White Blood Cell (WBC) Count 8.6 thou/uL (4.8-10.8)
[2022-07-22 22:41] LABS: ALT (SGPT) 9 U/L (8-55); AST (SGOT) 14 U/L (5-34); Alkaline Phosphatase 86 U/L (40-110); Anion Gap 15 mmol/L (10-20); BUN (Urea Nitrogen) 7 mg/dL (8.9-20.6); Bilirubin, Total 1.3 mg/dL (0.2-1.2); Calc. Creatinine Clearance 0 mL/min (70-130); Calcium 9.6 mg/dL (7.8-10.44); Carbon Dioxide 26 mmol/L (22-29); Chloride 100 mmol/L (98-107); Estimated GFR 95; Globulin 3.1 g/dL (2.4-3.5); Glucose 95 mg/dL (70-105); Lipase 145 U/L (8-78); Potassium 3.5 mmol/L (3.5-5.1); Protein, Total 7.1 g/dL (6.0-8.3); Sodium 137 mmol/L (136-145)
[2022-07-22] MEDS ORDERED: Ondansetron PF 4 MG/2 ML Vial ONE (22:50)
[2022-07-22] MEDS ORDERED: Morphine 4 MG/ML VIAL ONE (22:50)
[2022-07-22 23:18] LABS: Magnesium 1.7 mg/dL (1.6-2.6)
[2022-07-23] MEDS ORDERED: Morphine 4 MG/ML VIAL ONE (02:27)
[2022-07-23 04:09] LABS: Bacteria/HPF None Seen HPF (None Seen); Bilirubin Negative (Negative); Blood, Urine Negative (Negative); Clarity Clear (Clear); Glucose, Urine (Dipstick) Normal (Negative); Ketone, Urine 40 mg/dL (Negative); Leukocyte Negative Leu/uL (Negative); Nitrite Negative (Negative); Protein, Urine (Dipstick) 50 mg/dL (Neg-Trace); RBC/HPF 0-3 HPF (0-3); Specific Gravity, Urine 1.048 (1.002-1.036); Squamous Epithelial 0-3 HPF (0-3); Urobilinogen 6 mg/dL (Less than 2)
[2022-07-23] MEDS ORDERED: GASTROGRAFIN 30 ML BOT ONE (09:01)
[2022-07-23] MEDS ORDERED: Iopamidol-370 76% 500 ML 1 ML ONE (09:01)
== END 2022-07-23 05:25 | disposition home or self-care (01) ==
LOC: ERS 21:11
DX: K52.9 Noninfective gastroenteritis and colitis, unspecified (principal); I50.9 Heart failure, unspecified
CPT/HCPCS: 71045; 74177; 80053; 81003; 81015; 83605; 83690; 83735; 84484; 85025; 93005; 96374; 96375; 96376; J2270; J2405; Q9963; Q9967

== ENCOUNTER 2022-07-31 10:36 | Day surgery (SDC) | payer MEDICARE, OTHER ==
[2022-07-31] MEDS ORDERED: Multivitamins, Adult 10 ML, Thiamine HCl 100 MG in Sodium Chloride 0.9% 1,000 ML IV SCH (12:00)
[2022-07-31] MEDS ORDERED: Sodium Chloride 0.9% 1,000 ML IV SCH (12:00)
[2022-07-31] MEDS ORDERED: Ondansetron PF 4 MG/2 ML Vial ONE ×2 (12:03→14:04)
[2022-07-31] MEDS: Ondansetron PF 4 MG/2 ML Vial IVP PRN ×2 (12:04→14:05)
[2022-07-31 17:24] VITALS: BP 111/73; TEMP 98.1
== END 2022-07-31 17:25 | disposition home or self-care (01) ==
LOC: ONC/OP 10:36
PROVIDERS: ATTEND Surgery
DX: E86.0 Dehydration (principal); Z88.0 Allergy status to penicillin; Z88.2 Allergy status to sulfonamides
CPT/HCPCS: 96365; 96366; 96375; J2405; J3411; J7050

== ENCOUNTER 2022-08-02 11:39 | Outpatient (CLI) | payer MEDICARE, OTHER ==
[2022-08-02 12:33] LABS: #Eosinphils 0.2 10x3/uL (0.0-0.5); #Monocytes 0.8 10x3/uL (0.0-1.1); #Neutrophils 3.3 10x3/uL (1.5-8.4); %Basophils 0.4 % (0.0-2.0); %Eosinophils 2.9 % (0.0-6.0); %Lymphocytes 23.3 % (18.0-47.0); %Monocytes 13.6 % (0.0-10.0); %Neutrophils 59.6 % (40.0-75.0); Hemoglobin 11.6 g/dL (13.5-17.5); Mean Corpuscular HGB CONC 32.3 g/dL (32.0-36.0); Mean Corpuscular Hemoglobin 28.3 pg (27.0-33.0); Mean Corpuscular Volume 87.6 fl (81.2-95.1); Mean Platelet Volume 10.2 fl (7.4-10.4); Platelet Count 430 10x3/uL (150-450); RBC Distribution Width 13.6 % (11.5-14.5); White Blood Cell (WBC) Count 5.6 10x3/uL (3.5-10.5)
[2022-08-02 12:52] LABS: ALT (SGPT) 9 U/L (8-55); AST (SGOT) 13 U/L (5-34); Albumin 3.8 g/dL (3.5-5.0); Alkaline Phosphatase 81 U/L (40-110); Anion Gap 15 mmol/L (10-20); BUN (Urea Nitrogen) 5 mg/dL (8.9-20.6); Bilirubin, Direct 0.4 mg/dL (0.1-0.3); Bilirubin, Total 1.1 mg/dL (0.2-1.2); Calc. Creatinine Clearance 0 mL/min (70-130); Calcium 9.3 mg/dL (7.8-10.44); Carbon Dioxide 26 mmol/L (22-29); Chloride 103 mmol/L (98-107); Estimated GFR 104; Globulin 2.5 g/dL (2.4-3.5); Glucose 98 mg/dL (70-105); Lipase 142 U/L (8-78); Potassium 3.7 mmol/L (3.5-5.1); Protein, Total 6.3 g/dL (6.0-8.3); Sodium 140 mmol/L (136-145)
== END 2022-08-02 11:40 | disposition home or self-care (01) ==
LOC: LABBT 11:39
PROVIDERS: ATTEND Surgery
DX: Z01.812 Encounter for preprocedural laboratory examination (principal)
CPT/HCPCS: 80053; 80076; 83690; 85025

== ENCOUNTER 2022-08-07 09:26 | Day surgery (SDC) | payer MEDICARE, OTHER ==
[2022-08-05 16:10] VITALS: BMI 40.6
[2022-08-07] MEDS ORDERED: Ondansetron PF 4 MG/2 ML Vial ONE ×2 (10:54→11:57)
[2022-08-07] MEDS ORDERED: Fentanyl 100 MCG/2 ML VIAL ONE ×4 (11:02→14:11)
[2022-08-07] MEDS ORDERED: Bupivacaine 0.25% HCL 30 ML VIAL ONE (11:22)
[2022-08-07] MEDS ORDERED: Iopamidol 30 ML ONE (11:22)
[2022-08-07] MEDS ORDERED: EPINEPHrine 1 MG/ML AMP ONE (11:22)
[2022-08-07] MEDS ORDERED: fentaNYL Citrate/PF 100 MCG/2 ML SYRINGE ONE (11:27)
[2022-08-07] MEDS ORDERED: Sodium Chloride 0.9% 100 ML ONE (11:41)
[2022-08-07] MEDS ORDERED: cefOXitin 2 GM VIAL ONE (11:41)
[2022-08-07] MEDS ORDERED: Glycopyrrolate 0.2 MG/ML 5 ML SYRINGE ONE (11:57)
[2022-08-07] MEDS ORDERED: PROPOFOL 200 MG/20 ML VIAL ONE (11:57)
[2022-08-07] MEDS ORDERED: Succinylcholine 200 MG/10 ml SYRINGE FS ONE (11:57)
[2022-08-07] MEDS ORDERED: Dexamethasone 20 MG/5 ML VIAL ONE (11:57)
[2022-08-07] MEDS ORDERED: NEOSTIGMINE 3 MG/3 ML SYR 3 MG/3 ML SYRINGE ONE (11:57)
[2022-08-07] MEDS ORDERED: PHENYLEPHRINE-NS 100 MCG/ML 10 ML SYRINGE ONE (11:57)
[2022-08-07] MEDS ORDERED: Rocuronium Bromide 10 MG/ML (10ML VIAL) ONE (11:57)
[2022-08-07] MEDS ORDERED: Levofloxacin 500 mg/D5W 100 ml Premix Bag ONE (12:01)
[2022-08-07] MEDS ORDERED: HYDROcodone/Acetaminophen 5/325 mg Tablet ONE (14:57)
[2022-08-07] MEDS ORDERED: Morphine 2 MG/ML VIAL ONE (16:38)
== END 2022-08-07 17:05 | disposition home or self-care (01) ==
LOC: SDC 09:26
PROVIDERS: ATTEND Surgery
PROC: 0FT44ZZ Resection of Gallbladder, Percutaneous Endoscopic Approach (ICD-10-PCS; principal; 2022-08-07)
PROC: BF101ZZ Fluoroscopy of Bile Ducts using Low Osmolar Contrast (ICD-10-PCS; 2022-08-07)
DX: K80.10 Calculus of gallbladder with chronic cholecystitis without obstruction (principal); I11.0 Hypertensive heart disease with heart failure; I50.20 Unspecified systolic (congestive) heart failure; E66.9 Obesity, unspecified; Z68.41 Body mass index [BMI] 40.0-44.9, adult; Z87.891 Personal history of nicotine dependence; Z79.899 Other long term (current) drug therapy; Z88.0 Allergy status to penicillin; Z88.2 Allergy status to sulfonamides; Z95.810 Presence of automatic (implantable) cardiac defibrillator
CPT/HCPCS: 47532; 47563; J2270; 88304; C1713; J0171; J0694; J1100; J1956; J2405; J2704; J3010; J3490; Q9967; S0020

== ENCOUNTER 2022-08-15 10:15 | Emergency (ER) | payer MEDICARE, OTHER ==
[2022-08-15] MEDS ORDERED: Pantoprazole 40 MG VIAL ONE (11:21)
[2022-08-15] MEDS ORDERED: Ondansetron PF 4 MG/2 ML Vial ONE (11:21)
[2022-08-15 11:53] LABS: #Eosinphils 0.3 thou/uL (0.0-0.7); #Lymphocytes 1.3 thou/uL (1.20-3.40); #Monocytes 0.8 thou/uL (0.11-0.59); #Neutrophils 5.3 thou/uL (1.40-6.50); %Basophils 0.6 % (0.0-1.0); %Eosinophils 3.3 % (0.0-10.0); %Lymphocytes 16.9 % (21.0-51.0); %Monocytes 10.7 % (0.0-10.0); %Neutrophils 68.4 % (42.0-75.0); Hemoglobin 12.6 g/dL (14.0-18.0); Mean Corpuscular HGB CONC 31.1 g/dL (32.0-36.0); Mean Corpuscular Hemoglobin 28.8 pg (27.0-31.0); Mean Corpuscular Volume 92.6 fl (78.0-98.0); Platelet Count 308 thou/uL (130-400); RBC Distribution Width 12.4 % (11.5-14.5); Red Blood Cell (RBC) Count 4.39 mill/uL (4.70-6.10); White Blood Cell (WBC) Count 7.7 thou/uL (4.8-10.8)
[2022-08-15 12:13] LABS: ALT (SGPT) 16 U/L (8-55); AST (SGOT) 14 U/L (5-34); Albumin 3.7 g/dL (3.5-5.0); Alkaline Phosphatase 98 U/L (40-110); Anion Gap 14 mmol/L (10-20); BUN (Urea Nitrogen) 7 mg/dL (8.9-20.6); Bilirubin, Total 1.3 mg/dL (0.2-1.2); Calc. Creatinine Clearance 0 mL/min (70-130); Calcium 9.4 mg/dL (7.8-10.44); Carbon Dioxide 27 mmol/L (22-29); Chloride 101 mmol/L (98-107); Estimated GFR 112; Globulin 3.1 g/dL (2.4-3.5); Glucose 104 mg/dL (70-105); Lipase 115 U/L (8-78); Potassium 3.6 mmol/L (3.5-5.1); Protein, Total 6.8 g/dL (6.0-8.3); Sodium 138 mmol/L (136-145)
[2022-08-15] MEDS ORDERED: Ketorolac Tromethamine 30 MG/ML VIAL ONE (12:22)
[2022-08-15] MEDS ORDERED: Prochlorperazine Maleate 5 MG TAB ONE (13:32)
[2022-08-15] MEDS ORDERED: Iopamidol-370 76% 500 ML 1 ML ONE (14:04)
== END 2022-08-15 13:50 | disposition home or self-care (01) ==
LOC: ERS 10:15
DX: R07.9 Chest pain, unspecified (principal); R10.13 Epigastric pain; R11.2 Nausea with vomiting, unspecified
CPT/HCPCS: 74177; 80053; 83690; 84484; 85025; 93005; 96361; 96374; 96375; C9113; J1885; J2405; Q0164; Q9967

== ENCOUNTER 2022-09-03 08:23 | Outpatient (CLI) | payer MEDICARE, MEDICAID ==
[2022-09-03] MEDS ORDERED: MD-Gastroview 120 ML BOT ONE (09:05)
== END 2022-09-03 08:24 | disposition home or self-care (01) ==
LOC: RAD 08:23
PROVIDERS: ATTEND Internal Medicine
DX: K21.9 Gastro-esophageal reflux disease without esophagitis (principal); R10.13 Epigastric pain; R11.2 Nausea with vomiting, unspecified; Z98.84 Bariatric surgery status
CPT/HCPCS: 74250; Q9963

== ENCOUNTER 2022-09-05 12:47 | Day surgery (SDC) | payer MEDICARE, MEDICAID ==
[2022-09-05] MEDS ORDERED: Ondansetron PF 4 MG/2 ML Vial IVP PRN (13:40)
[2022-09-05] MEDS ORDERED: Sodium Chloride 0.9% 1,000 ML IV SCH (13:45)
[2022-09-05] MEDS ORDERED: Multivitamins, Adult 10 ML, Thiamine HCl 100 MG in Sodium Chloride 0.9% 1,000 ML IV SCH (13:45)
[2022-09-05] MEDS ORDERED: Ondansetron PF 4 MG/2 ML Vial ONE (14:37)
[2022-09-05 16:47] VITALS: BP 134/91; TEMP 98.2
== END 2022-09-05 16:51 | disposition short-term general hospital (02) ==
LOC: ONC/OP 12:47
PROVIDERS: ATTEND Surgery
DX: E86.0 Dehydration (principal); Z88.0 Allergy status to penicillin; Z88.2 Allergy status to sulfonamides
CPT/HCPCS: 96361; 96365; 96366; J2405; J3411; J7050

== ENCOUNTER 2022-09-05 17:03 | Emergency (ER) | payer MEDICARE, MEDICAID ==
[2022-09-05 18:15] LABS: #Basophils 0.1 thou/uL (0.0-0.2); #Eosinphils 0.1 thou/uL (0.0-0.7); #Monocytes 1.1 thou/uL (0.11-0.59); #Neutrophils 5.1 thou/uL (1.40-6.50); %Basophils 0.7 % (0.0-1.0); %Eosinophils 1.8 % (0.0-10.0); %Monocytes 12.5 % (0.0-10.0); %Neutrophils 61.1 % (42.0-75.0); Hemoglobin 12.5 g/dL (14.0-18.0); Mean Corpuscular HGB CONC 30.3 g/dL (32.0-36.0); Mean Corpuscular Hemoglobin 27.8 pg (27.0-31.0); Mean Corpuscular Volume 91.6 fl (78.0-98.0); Mean Platelet Volume 7.9 fL (7.4-10.4); Platelet Count 410 10x3/uL (130-400); RBC Distribution Width 12.5 % (11.5-14.5); White Blood Cell (WBC) Count 8.4 10x3/uL (4.8-10.8)
[2022-09-05] MEDS ORDERED: Ondansetron PF 4 MG/2 ML Vial ONE (18:35)
[2022-09-05] MEDS ORDERED: HYDROmorphone 0.5 MG/0.5 ML SYRINGE ONE ×2 (18:38→19:04)
[2022-09-05 18:47] LABS: ALT (SGPT) 13 U/L (8-55); AST (SGOT) 17 U/L (5-34); Albumin 3.4 g/dL (3.5-5.0); Alkaline Phosphatase 95 U/L (40-110); Anion Gap 16 mmol/L (10-20); BUN (Urea Nitrogen) 4 mg/dL (8.9-20.6); Bilirubin, Total 1.3 mg/dL (0.2-1.2); Calc. Creatinine Clearance 0 mL/min (70-130); Calcium 8.7 mg/dL (7.8-10.44); Carbon Dioxide 23 mmol/L (22-29); Chloride 100 mmol/L (98-107); Estimated GFR 115; Globulin 3.4 g/dL (2.4-3.5); Glucose 90 mg/dL (70-105); Lipase 46 U/L (8-78); Potassium 3.3 mmol/L (3.5-5.1); Protein, Total 6.8 g/dL (6.0-8.3); Sodium 136 mmol/L (136-145)
== END 2022-09-05 20:41 | disposition home or self-care (01) ==
LOC: ERS 17:03
DX: K29.70 Gastritis, unspecified, without bleeding (principal); I50.9 Heart failure, unspecified
CPT/HCPCS: 36415; 74018; 80053; 83690; 85025; 96361; 96374; 96375; J1170; J2405

== ENCOUNTER 2022-09-15 08:26 | Emergency (ER) | payer MEDICARE, OTHER ==
[2022-09-15] MEDS ORDERED: Morphine 4 MG/ML VIAL ONE (09:39)
[2022-09-15] MEDS ORDERED: Ondansetron PF 4 MG/2 ML Vial ONE (09:39)
[2022-09-15 09:50] LABS: #Eosinphils 0.2 thou/uL (0.0-0.7); #Lymphocytes 1.6 thou/uL (1.20-3.40); #Monocytes 0.7 thou/uL (0.11-0.59); #Neutrophils 3.4 thou/uL (1.40-6.50); %Basophils 0.7 % (0.0-1.0); %Eosinophils 2.6 % (0.0-10.0); %Neutrophils 57.8 % (42.0-75.0); Hemoglobin 12.9 g/dL (14.0-18.0); Mean Corpuscular HGB CONC 32.3 g/dL (32.0-36.0); Mean Corpuscular Hemoglobin 29.5 pg (27.0-31.0); Mean Corpuscular Volume 91.2 fl (78.0-98.0); Mean Platelet Volume 7.8 fL (7.4-10.4); Platelet Count 342 10x3/uL (130-400); RBC Distribution Width 12.7 % (11.5-14.5); Red Blood Cell (RBC) Count 4.36 mill/uL (4.70-6.10); White Blood Cell (WBC) Count 5.9 10x3/uL (4.8-10.8)
[2022-09-15 10:12] LABS: ALT (SGPT) 21 U/L (8-55); AST (SGOT) 20 U/L (5-34); Albumin 3.7 g/dL (3.5-5.0); Alkaline Phosphatase 104 U/L (40-110); Anion Gap 15 mmol/L (10-20); BUN (Urea Nitrogen) 4 mg/dL (8.9-20.6); Bilirubin, Total 1.5 mg/dL (0.2-1.2); Calc. Creatinine Clearance 0 mL/min (70-130); Calcium 9.1 mg/dL (7.8-10.44); Carbon Dioxide 27 mmol/L (22-29); Chloride 101 mmol/L (98-107); Estimated GFR 114; Globulin 2.8 g/dL (2.4-3.5); Glucose 96 mg/dL (70-105); Lipase 45 U/L (8-78); Potassium 3.3 mmol/L (3.5-5.1); Protein, Total 6.5 g/dL (6.0-8.3); Sodium 140 mmol/L (136-145)
[2022-09-15] MEDS ORDERED: Metoclopramide 10 MG/10 ML UDCUP ONE (13:24)
[2022-09-15] MEDS ORDERED: diphenhydrAMINE 50 MG/ML VIAL ONE (13:24)
[2022-09-15] MEDS ORDERED: Metoclopramide HCl 10 MG/2 ML VIAL ONE (13:25)
[2022-09-15 13:37] LABS: Bilirubin Negative (Negative); Blood, Urine Negative (Negative); Clarity Clear (Clear); Glucose, Urine (Dipstick) Normal (Negative); Ketone, Urine 20 mg/dL (Negative); Leukocyte Negative Leu/uL (Negative); Nitrite Negative (Negative); Protein, Urine (Dipstick) Negative (Neg-Trace); Specific Gravity, Urine 1.037 (1.002-1.036); Urobilinogen Normal mg/dL (Less than 2)
[2022-09-15] MEDS ORDERED: Iopamidol-370 76% 500 ML 1 ML ONE (13:47)
== END 2022-09-15 15:23 | disposition home or self-care (01) ==
LOC: ERS 08:26
DX: R10.13 Epigastric pain (principal)
CPT/HCPCS: 74177; 80053; 81003; 83690; 85025; 96361; 96374; 96375; J1200; J2270; J2405; J2765; Q9967

== ENCOUNTER 2022-09-24 12:58 | Day surgery (SDC) | payer MEDICARE, MEDICAID ==
[~2022-09-24 12:58] MED LIST changes: -Iopamidol 370 76% 100 ML VIAL ONE; +Multivitamins, Adult 10 ML, Thiamine HCl 100 MG in Sodium Chloride 0.9% 1,000 ML IV SCH; +Ondansetron PF 4 MG/2 ML Vial IVP PRN; +Sodium Chloride 0.9% 1,000 ML IV SCH
[2022-09-24 13:42] VITALS: BP 133/80; TEMP 98.2
== END 2022-09-24 18:08 | disposition home or self-care (01) ==
LOC: ONC/OP 12:58
PROVIDERS: ATTEND Surgery
DX: E86.0 Dehydration (principal); Z88.0 Allergy status to penicillin; Z88.2 Allergy status to sulfonamides
CPT/HCPCS: 96361; 96365; 96366; J3411; J7050

== ENCOUNTER 2022-09-26 12:19 | Inpatient (IN) | payer MEDICARE, MEDICAID ==
[2022-09-26] MEDS ORDERED: Sucralfate 1 GM/10 ML UDCUP ONE (12:57)
[2022-09-26] MEDS ORDERED: Pantoprazole 40 MG VIAL ONE (12:57)
[2022-09-26 13:34] LABS: #Eosinphils 0.1 thou/uL (0.0-0.7); #Lymphocytes 1.2 thou/uL (1.20-3.40); #Monocytes 0.7 thou/uL (0.11-0.59); #Neutrophils 4.4 thou/uL (1.40-6.50); %Basophils 0.5 % (0.0-1.0); %Eosinophils 1.1 % (0.0-10.0); %Lymphocytes 18.7 % (21.0-51.0); %Monocytes 10.8 % (0.0-10.0); Hemoglobin 11.3 g/dL (14.0-18.0); Mean Corpuscular HGB CONC 31.3 g/dL (32.0-36.0); Mean Corpuscular Hemoglobin 28.5 pg (27.0-31.0); Mean Corpuscular Volume 91.3 fl (78.0-98.0); Mean Platelet Volume 7.7 fL (7.4-10.4); Platelet Count 326 10x3/uL (130-400); RBC Distribution Width 12.4 % (11.5-14.5); Red Blood Cell (RBC) Count 3.97 mill/uL (4.70-6.10); White Blood Cell (WBC) Count 6.4 10x3/uL (4.8-10.8)
[2022-09-26] MEDS ORDERED: Morphine 4 MG/ML VIAL ONE (13:47)
[2022-09-26 13:56] LABS: ALT (SGPT) 13 U/L (8-55); AST (SGOT) 16 U/L (5-34); Albumin 3.2 g/dL (3.5-5.0); Alkaline Phosphatase 96 U/L (40-110); Anion Gap 13 mmol/L (10-20); BUN (Urea Nitrogen) Less than 4 mg/dL (8.9-20.6); Bilirubin, Total 1.1 mg/dL (0.2-1.2); Calc. Creatinine Clearance 0 mL/min (70-130); Calcium 8.8 mg/dL (7.8-10.44); Carbon Dioxide 28 mmol/L (22-29); Chloride 100 mmol/L (98-107); Estimated GFR 117; Globulin 2.8 g/dL (2.4-3.5); Glucose 91 mg/dL (70-105); Lipase 33 U/L (8-78); Magnesium 1.5 mg/dL (1.6-2.6); Potassium 3.3 mmol/L (3.5-5.1); Sodium 138 mmol/L (136-145)
[2022-09-26] MEDS ORDERED: Potassium Chloride 20 MEQ TAB ONE (14:34)
[2022-09-26] MEDS ORDERED: Magnesium 2 GM/50 ML BAG (IN WATER) ONE (14:34)
[2022-09-26] MEDS ORDERED: Ondansetron PF 4 MG/2 ML Vial IVP PRN (17:10)
[2022-09-26] MEDS ORDERED: Acetaminophen 650 MG Suppository PR PRN (17:10)
[2022-09-26] MEDS ORDERED: Sodium Chloride 0.9% 1,000 ML IV SCH (17:10)
[2022-09-26] MEDS ORDERED: Acetaminophen 325 MG TAB PO PRN (17:10)
[2022-09-26 17:19] VITALS: BMI 32.2
[2022-09-26] MEDS: Morphine 4 MG/ML VIAL SLOW IVP PRN ×2 (17:41→21:55)
[2022-09-26] MEDS: Sodium Chloride 0.9% 1,000 ML IV SCH (17:41)
[2022-09-26] MEDS ORDERED: Potassium Chloride 10 MEQ in Premix Bag 1 BAG IVPB SCH (17:45)
[2022-09-26] MEDS: Lurasidone 20 MG TABLET PO SCH (21:08)
[2022-09-26] MEDS: Atorvastatin Calcium 20 MG TAB PO SCH (21:18)
[2022-09-27] MEDS ORDERED: Morphine 4 MG/ML VIAL SLOW IVP SCH (00:15)
[2022-09-27 08:10] LABS: Anion Gap 13 mmol/L (10-20); BUN (Urea Nitrogen) Less than 4 mg/dL (8.9-20.6); Calc. Creatinine Clearance 215 mL/min (70-130); Calcium 8.1 mg/dL (7.8-10.44); Carbon Dioxide 25 mmol/L (22-29); Chloride 103 mmol/L (98-107); Estimated GFR 119; Glucose 78 mg/dL (70-105); Potassium 3.2 mmol/L (3.5-5.1); Sodium 138 mmol/L (136-145)
[2022-09-27 08:22] LABS: #Basophils 0.1 thou/uL (0.0-0.2); #Eosinphils 0.2 thou/uL (0.0-0.7); #Lymphocytes 1.7 thou/uL (1.20-3.40); #Monocytes 0.8 thou/uL (0.11-0.59); #Neutrophils 3.1 thou/uL (1.40-6.50); %Basophils 1.1 % (0.0-1.0); %Eosinophils 3.4 % (0.0-10.0); %Lymphocytes 28.8 % (21.0-51.0); %Monocytes 14.3 % (0.0-10.0); %Neutrophils 52.4 % (42.0-75.0); Hemoglobin 10.5 g/dL (14.0-18.0); Mean Corpuscular Hemoglobin 29.4 pg (27.0-31.0); Mean Platelet Volume 7.9 fL (7.4-10.4); Platelet Count 292 10x3/uL (130-400); RBC Distribution Width 12.4 % (11.5-14.5); Red Blood Cell (RBC) Count 3.56 mill/uL (4.70-6.10); White Blood Cell (WBC) Count 5.8 10x3/uL (4.8-10.8)
[2022-09-27] MEDS ORDERED: Non-Formulary Item 1 EACH (Vortioxetine Hydrobromide [Trintellix] 20 MG Tablet) PO SCH (09:00)
[2022-09-27] MEDS: Morphine 4 MG/ML VIAL SLOW IVP PRN (09:17)
[2022-09-27] MEDS: lamoTRIgine 100 MG TAB PO SCH (10:23)
[2022-09-27] MEDS: Sodium Chloride 0.9% 1,000 ML IV SCH (13:25)
[2022-09-27] MEDS ORDERED: oxyCODONE 5 MG TAB PO PRN (18:54)
[2022-09-27] MEDS ORDERED: oxyCODONE 5 MG TAB PO SCH (19:00)
[2022-09-27] MEDS: Atorvastatin Calcium 20 MG TAB PO SCH (20:31)
[2022-09-27] MEDS: Lurasidone 20 MG TABLET PO SCH (20:32)
[2022-09-28] MEDS: oxyCODONE 5 MG TAB PO PRN ×3 (04:14→20:24)
[2022-09-28] MEDS: lamoTRIgine 100 MG TAB PO SCH ×2 (09:02→09:06)
[2022-09-28] MEDS: Potassium Chloride 20 MEQ TAB PO SCH ×2 (09:02→14:33)
[2022-09-28] MEDS: Pantoprazole 40 MG VIAL IVP SCH ×2 (09:03→20:21)
[2022-09-28] MEDS: Polyethylene Glycol 3350 17 GM Packet PO SCH (09:03)
[2022-09-28] MEDS: Sodium Chloride 0.9% 1,000 ML IV SCH (09:04)
[2022-09-28] MEDS: Morphine 4 MG/ML VIAL SLOW IVP PRN (17:24)
[2022-09-28] MEDS: Atorvastatin Calcium 20 MG TAB PO SCH (20:21)
[2022-09-28] MEDS: Lurasidone 20 MG TABLET PO SCH (20:31)
[2022-09-29] MEDS: oxyCODONE 5 MG TAB PO PRN ×3 (01:44→15:57)
[2022-09-29] MEDS: Sodium Chloride 0.9% 1,000 ML IV SCH (01:46)
[2022-09-29] MEDS ORDERED: FLU VACC QS2022-23(6MOS UP)/PF 60 MCG/0.5 ML SYRINGE IM ONE (09:00)
[2022-09-29] MEDS: lamoTRIgine 100 MG TAB PO SCH (09:02)
[2022-09-29] MEDS: Polyethylene Glycol 3350 17 GM Packet PO SCH (09:02)
[2022-09-29] MEDS: Pantoprazole 40 MG VIAL IVP SCH ×2 (09:03→20:56)
[2022-09-29] MEDS: Atorvastatin Calcium 20 MG TAB PO SCH (20:56)
[2022-09-29] MEDS: Lurasidone 20 MG TABLET PO SCH (20:56)
[2022-09-29] MEDS: Morphine 4 MG/ML VIAL SLOW IVP PRN (21:27)
[2022-09-30] MEDS: oxyCODONE 5 MG TAB PO PRN ×3 (00:35→20:06)
[2022-09-30] MEDS: Morphine 4 MG/ML VIAL SLOW IVP PRN ×2 (07:12→17:54)
[2022-09-30] MEDS: Sodium Chloride 0.9% 1,000 ML IV SCH (07:15)
[2022-09-30 08:21] LABS: #Basophils 0.1 thou/uL (0.0-0.2); #Eosinphils 0.2 thou/uL (0.0-0.7); #Lymphocytes 1.9 thou/uL (1.20-3.40); #Monocytes 0.8 thou/uL (0.11-0.59); #Neutrophils 3.3 thou/uL (1.40-6.50); %Basophils 1.1 % (0.0-1.0); %Eosinophils 3.3 % (0.0-10.0); %Lymphocytes 29.7 % (21.0-51.0); %Monocytes 12.2 % (0.0-10.0); %Neutrophils 53.6 % (42.0-75.0); Hemoglobin 11.1 g/dL (14.0-18.0); Mean Corpuscular HGB CONC 30.8 g/dL (32.0-36.0); Mean Corpuscular Hemoglobin 28.7 pg (27.0-31.0); Mean Corpuscular Volume 93.4 fl (78.0-98.0); Mean Platelet Volume 8.3 fL (7.4-10.4); Platelet Count 307 10x3/uL (130-400); RBC Distribution Width 12.6 % (11.5-14.5); Red Blood Cell (RBC) Count 3.86 mill/uL (4.70-6.10); White Blood Cell (WBC) Count 6.2 10x3/uL (4.8-10.8)
[2022-09-30] MEDS: lamoTRIgine 100 MG TAB PO SCH (08:31)
[2022-09-30] MEDS: Pantoprazole 40 MG VIAL IVP SCH ×2 (08:31→20:08)
[2022-09-30] MEDS: Polyethylene Glycol 3350 17 GM Packet PO SCH (08:31)
[2022-09-30 08:32] LABS: ALT (SGPT) 16 U/L (8-55); AST (SGOT) 18 U/L (5-34); Albumin 2.8 g/dL (3.5-5.0); Alkaline Phosphatase 82 U/L (40-110); Anion Gap 15 mmol/L (10-20); BUN (Urea Nitrogen) Less than 4 mg/dL (8.9-20.6); Bilirubin, Total 1.3 mg/dL (0.2-1.2); Calc. Creatinine Clearance 195 mL/min (70-130); Calcium 8.4 mg/dL (7.8-10.44); Carbon Dioxide 24 mmol/L (22-29); Chloride 104 mmol/L (98-107); Estimated GFR 116; Globulin 2.6 g/dL (2.4-3.5); Glucose 85 mg/dL (70-105); Potassium 3.5 mmol/L (3.5-5.1); Protein, Total 5.4 g/dL (6.0-8.3); Sodium 139 mmol/L (136-145)
[2022-09-30] MEDS ORDERED: Mineral Oil ENEMA PR SCH (10:00)
[2022-09-30] MEDS: Lurasidone 20 MG TABLET PO SCH (20:07)
[2022-09-30] MEDS: Atorvastatin Calcium 20 MG TAB PO SCH (20:08)
[2022-10-01] MEDS: Sodium Chloride 0.9% 1,000 ML IV SCH (01:57)
[2022-10-01] MEDS: oxyCODONE 5 MG TAB PO PRN ×2 (01:58→08:45)
[2022-10-01] MEDS: lamoTRIgine 100 MG TAB PO SCH (08:46)
[2022-10-01] MEDS: Pantoprazole 40 MG VIAL IVP SCH (08:46)
[2022-10-01] MEDS: Polyethylene Glycol 3350 17 GM Packet PO SCH (08:48)
[2022-10-01] MEDS ORDERED: FENTANYL 50 MCG/ML 1 ML VIAL ONE (13:29)
[2022-10-01] MEDS ORDERED: Bupivacaine/Epinephrine 0.25% 30 ML VIAL ONE (13:31)
[2022-10-01] MEDS ORDERED: Phenylephrine 10 MG/ML VIAL ONE ×2 (14:26→14:51)
[2022-10-01] MEDS ORDERED: fentaNYL PF 100 MCG/2 ML SYRINGE ONE (14:29)
[2022-10-01] MEDS ORDERED: SUGAMMADEX SODIUM 200 MG/2 ML VIAL ONE (14:41)
[2022-10-01] MEDS ORDERED: Dexamethasone 20 MG/5 ML VIAL ONE (14:51)
[2022-10-01] MEDS ORDERED: Rocuronium Bromide 10 MG/ML (10ML VIAL) ONE (14:51)
[2022-10-01] MEDS ORDERED: PROPOFOL 200 MG/20 ML VIAL ONE (14:51)
[2022-10-01] MEDS ORDERED: Ondansetron PF 4 MG/2 ML Vial ONE (14:51)
[2022-10-01] MEDS ORDERED: Albumin 5% 500 ML ONE (15:37)
[2022-10-01] MEDS ORDERED: HYDROmorphone 2 MG/ML VIAL SLOW IVP PRN (16:23)
[2022-10-01] MEDS ORDERED: Promethazine HCl 25 MG/ML VIAL IVPB PRN (16:23)
[2022-10-01] MEDS ORDERED: Promethazine HCl 25 MG/ML VIAL IM PRN ×3 (16:23→16:42)
[2022-10-01] MEDS ORDERED: Ondansetron PF 4 MG/2 ML Vial IVP PRN (16:26)
[2022-10-01] MEDS ORDERED: Dextrose 5% in Water 1,000 ML IV PRN (16:26)
[2022-10-01] MEDS ORDERED: hydrALAZINE 20 MG/ML VIAL SLOW IVP PRN (16:26)
[2022-10-01] MEDS ORDERED: Hydrocodone-Acetamin 15 ML UDCUP PO PRN (16:26)
[2022-10-01] MEDS ORDERED: Dextrose 50% Abboject 50 ML SYRINGE SLOW IVP PRN (16:26)
[2022-10-01] MEDS ORDERED: diphenhydrAMINE 50 MG/ML VIAL IVP PRN ×2 (16:26→16:42)
[2022-10-01] MEDS ORDERED: FENTANYL 500 MCG/10 ML VIAL 2,000 MCG in Sodium Chloride 0.9% 60 ML IV PRN (16:42)
[2022-10-01] MEDS ORDERED: diphenhydrAMINE 50 MG/ML VIAL IM PRN (16:42)
[2022-10-01] MEDS ORDERED: Zolpidem Tartrate 5 MG TAB PO PRN (16:42)
[2022-10-01] MEDS ORDERED: diphenhydrAMINE 25 MG CAP PO PRN (16:42)
[2022-10-01] MEDS ORDERED: Naloxone HCl 0.4 mg/ml Vial IV PRN (16:42)
[2022-10-01] MEDS ORDERED: Communication Order-Pharmacy FS SCH (16:45)
[2022-10-01] MEDS: D5 1/2 NS w/20 mEq KCL 1,000 ML IV SCH (17:35)
[2022-10-01] MEDS: Atorvastatin Calcium 20 MG TAB PO SCH (20:38)
[2022-10-01] MEDS: Lurasidone 20 MG TABLET PO SCH (20:41)
[2022-10-02] MEDS: D5 1/2 NS w/20 mEq KCL 1,000 ML IV SCH ×4 (01:10→23:35)
[2022-10-02 07:02] LABS: #Lymphocytes 0.5 thou/uL (1.20-3.40); #Monocytes 0.5 thou/uL (0.11-0.59); #Neutrophils 7.4 thou/uL (1.40-6.50); %Lymphocytes 6.3 % (21.0-51.0); %Monocytes 6.4 % (0.0-10.0); %Neutrophils 87.3 % (42.0-75.0); Hemoglobin 10.7 g/dL (14.0-18.0); Mean Corpuscular HGB CONC 31.4 g/dL (32.0-36.0); Mean Corpuscular Hemoglobin 29.1 pg (27.0-31.0); Mean Corpuscular Volume 92.6 fl (78.0-98.0); Mean Platelet Volume 8.2 fL (7.4-10.4); Platelet Count 321 10x3/uL (130-400); RBC Distribution Width 12.9 % (11.5-14.5); Red Blood Cell (RBC) Count 3.68 mill/uL (4.70-6.10); White Blood Cell (WBC) Count 8.4 10x3/uL (4.8-10.8)
[2022-10-02 07:12] LABS: Anion Gap 12 mmol/L (10-20); BUN (Urea Nitrogen) Less than 4 mg/dL (8.9-20.6); Calc. Creatinine Clearance 181 mL/min (70-130); Calcium 8.8 mg/dL (7.8-10.44); Carbon Dioxide 26 mmol/L (22-29); Chloride 104 mmol/L (98-107); Estimated GFR 113; Glucose 144 mg/dL (70-105); Potassium 4.2 mmol/L (3.5-5.1); Sodium 138 mmol/L (136-145)
[2022-10-02] MEDS: Polyethylene Glycol 3350 17 GM Packet PO SCH (10:00)
[2022-10-02] MEDS: Enoxaparin Sodium 40 MG/0.4 ML SYRINGE SC SCH (10:00)
[2022-10-02] MEDS: Pantoprazole 40 MG VIAL IVP SCH (10:00)
[2022-10-02] MEDS: lamoTRIgine 100 MG TAB PO SCH (10:01)
[2022-10-02] MEDS: Atorvastatin Calcium 20 MG TAB PO SCH (20:16)
[2022-10-02] MEDS: Lurasidone 20 MG TABLET PO SCH (20:16)
[2022-10-02 23:49] VITALS: TEMP 98
[2022-10-03 07:54] VITALS: BP 121/80
[2022-10-03] MEDS: Polyethylene Glycol 3350 17 GM Packet PO SCH (08:36)
[2022-10-03] MEDS: lamoTRIgine 100 MG TAB PO SCH (08:36)
[2022-10-03] MEDS: D5 1/2 NS w/20 mEq KCL 1,000 ML IV SCH ×2 (08:36→16:39)
[2022-10-03] MEDS: Pantoprazole 40 MG VIAL IVP SCH (08:38)
[2022-10-03] MEDS: Enoxaparin Sodium 40 MG/0.4 ML SYRINGE SC SCH (08:38)
[2022-10-03] MEDS ORDERED: HYDROcodone/Acetaminophen 10/325 mg Tablet PO PRN ×2 (10:14)
== END 2022-10-03 17:51 | disposition home or self-care (01) | DRG 336 ==
LOC: ERS 12:19 → T4-A 15:09 → OBSVTOIN 09-27 11:20
PROVIDERS: ADMIT Surgery; ATTEND Internal Medicine
PROC: 0DN84ZZ Release Small Intestine, Percutaneous Endoscopic Approach (ICD-10-PCS; principal; 2022-10-01)
DX: K91.31 Postprocedural partial intestinal obstruction (principal); E44.1 Mild protein-calorie malnutrition; I50.32 Chronic diastolic (congestive) heart failure; K92.0 Hematemesis; Z20.822 Contact with and (suspected) exposure to COVID-19; K21.9 Gastro-esophageal reflux disease without esophagitis; Z96.611 Presence of right artificial shoulder joint; F41.9 Anxiety disorder, unspecified; F32.A Depression, unspecified; E83.42 Hypomagnesemia; E87.6 Hypokalemia; E78.5 Hyperlipidemia, unspecified; I11.0 Hypertensive heart disease with heart failure; E66.01 Morbid (severe) obesity due to excess calories; F32.9 Major depressive disorder, single episode, unspecified; K66.0 Peritoneal adhesions (postprocedural) (postinfection); E86.0 Dehydration; M19.90 Unspecified osteoarthritis, unspecified site; R62.7 Adult failure to thrive; Z28.21 Immunization not carried out because of patient refusal; Z68.32 Body mass index [BMI] 32.0-32.9, adult; Z98.84 Bariatric surgery status; Z88.1 Allergy status to other antibiotic agents; Z88.0 Allergy status to penicillin; Z88.2 Allergy status to sulfonamides; Z79.899 Other long term (current) drug therapy; Z97.0 Presence of artificial eye; Z90.49 Acquired absence of other specified parts of digestive tract; Z95.810 Presence of automatic (implantable) cardiac defibrillator; Z81.8 Family history of other mental and behavioral disorders; Z87.891 Personal history of nicotine dependence; Z85.840 Personal history of malignant neoplasm of eye
CPT/HCPCS: 36415; 78226; 80048; 80053; 83690; 83735; 85025; 87086; 96374; 96375; 96376; A4649; A9537; C9113; G0378; J1100; J1650; J2270; J2370; J2405; J2704; J3010; J3475; J3480; J3490; J7050; P9045; U0003; U0005

== ENCOUNTER 2022-10-10 12:05 | Emergency (ER) | payer MEDICARE, OTHER ==
[2022-10-10] MEDS ORDERED: Morphine 4 MG/ML VIAL ONE (13:10)
[2022-10-10] MEDS ORDERED: Ondansetron PF 4 MG/2 ML Vial ONE (13:10)
[2022-10-10 14:19] LABS: Hemoglobin 12.1 g/dL (14.0-18.0); Mean Corpuscular HGB CONC 30.5 g/dL (32.0-36.0); Mean Corpuscular Hemoglobin 28.8 pg (27.0-31.0); Mean Corpuscular Volume 94.3 fl (78.0-98.0); Mean Platelet Volume 8.1 fL (7.4-10.4); Platelet Count 318 10x3/uL (130-400); RBC Distribution Width 12.8 % (11.5-14.5); Red Blood Cell (RBC) Count 4.19 mill/uL (4.70-6.10); White Blood Cell (WBC) Count 7.2 10x3/uL (4.8-10.8)
[2022-10-10 14:35] LABS: Lactic Acid 1.4 mmol/L (0.5-2.2)
[2022-10-10 14:39] LABS: ALT (SGPT) 36 U/L (8-55); AST (SGOT) 33 U/L (5-34); Albumin 3.1 g/dL (3.5-5.0); Alkaline Phosphatase 89 U/L (40-110); Anion Gap 15 mmol/L (10-20); BUN (Urea Nitrogen) 4 mg/dL (8.9-20.6); Calc. Creatinine Clearance 0 mL/min (70-130); Calcium 8.7 mg/dL (7.8-10.44); Carbon Dioxide 22 mmol/L (22-29); Chloride 103 mmol/L (98-107); Estimated GFR 115; Globulin 2.8 g/dL (2.4-3.5); Glucose 98 mg/dL (70-105); Lipase 32 U/L (8-78); Potassium 3.6 mmol/L (3.5-5.1); Protein, Total 5.9 g/dL (6.0-8.3); Sodium 136 mmol/L (136-145)
[2022-10-10 14:40] LABS: Band 1 % (5-11); Burr Cells SLIGHT = 2-5 cells (100X) (0-1/hpf); Eosinophils 1 % (0-10); Lymphocytes 21 % (21-51); MDiff Complete? YES; Monocytes 8 % (0-10); Neutrophil 69 % (42-75); Ovalocytes SLIGHT = 2-5 cells (100X) (0-1/hpf); Platelet Morphology Comment Appears Adequate; Polychromasia SLIGHT = 2-3 cells (100X) (0-2/hpf)
== END 2022-10-10 15:09 | disposition home or self-care (01) ==
LOC: ERS 12:05
DX: K95.89 Other complications of other bariatric procedure (principal); R10.12 Left upper quadrant pain
CPT/HCPCS: 36415; 74177; 80053; 83605; 83690; 85025; 96361; 96374; 96375; J2270; J2405

== ENCOUNTER 2022-10-15 13:31 | Day surgery (SDC) | payer MEDICARE, OTHER ==
[2022-10-15] MEDS ORDERED: Multivitamins, Adult 10 ML, Thiamine HCl 100 MG in Sodium Chloride 0.9% 1,000 ML IV SCH (14:00)
[2022-10-15] MEDS ORDERED: Ondansetron PF 4 MG/2 ML Vial IVP PRN (14:01)
[2022-10-15] MEDS ORDERED: Ondansetron PF 4 MG/2 ML Vial ONE (14:28)
[2022-10-15] MEDS ORDERED: Sodium Chloride 0.9% 1,000 ML IV SCH (18:00)
[2022-10-15 18:22] VITALS: BP 130/81
== END 2022-10-15 17:30 | disposition home or self-care (01) ==
LOC: ONC/OP 13:31
PROVIDERS: ATTEND Surgery
DX: E86.0 Dehydration (principal); Z88.0 Allergy status to penicillin; Z88.2 Allergy status to sulfonamides
CPT/HCPCS: 96361; 96365; 96366; 96375; J2405; J3411; J7050

== ENCOUNTER 2022-10-26 13:32 | Inpatient (IN) | payer MEDICARE, MEDICAID ==
[~2022-10-26 13:32] MED LIST changes: +GASTROGRAFIN 30 ML BOT ONE; +Iopamidol-370 76% 500 ML 1 ML ONE; -Multivitamins, Adult 10 ML, Thiamine HCl 100 MG in Sodium Chloride 0.9% 1,000 ML IV SCH; -Ondansetron PF 4 MG/2 ML Vial IVP PRN; -Sodium Chloride 0.9% 1,000 ML IV SCH
[2022-10-26 14:18] LABS: #Eosinphils 0.1 thou/uL (0.0-0.7); #Lymphocytes 1.3 thou/uL (1.20-3.40); #Monocytes 0.8 thou/uL (0.11-0.59); #Neutrophils 4.6 thou/uL (1.40-6.50); %Basophils 0.6 % (0.0-1.0); %Eosinophils 1.4 % (0.0-10.0); %Lymphocytes 19.2 % (21.0-51.0); %Monocytes 12.1 % (0.0-10.0); %Neutrophils 66.6 % (42.0-75.0); Mean Corpuscular HGB CONC 33.5 g/dL (32.0-36.0); Mean Corpuscular Volume 92.7 fl (78.0-98.0); Mean Platelet Volume 7.4 fL (7.4-10.4); Platelet Count 348 10x3/uL (130-400); RBC Distribution Width 12.3 % (11.5-14.5); Red Blood Cell (RBC) Count 4.18 mill/uL (4.70-6.10); White Blood Cell (WBC) Count 6.9 10x3/uL (4.8-10.8)
[2022-10-26] MEDS ORDERED: Ondansetron PF 4 MG/2 ML Vial ONE (14:33)
[2022-10-26] MEDS ORDERED: Morphine 4 MG/ML VIAL ONE (14:33)
[2022-10-26 14:37] LABS: ALT (SGPT) 26 U/L (8-55); AST (SGOT) 24 U/L (5-34); Albumin 3.1 g/dL (3.5-5.0); Alkaline Phosphatase 89 U/L (40-110); Anion Gap 12 mmol/L (10-20); BUN (Urea Nitrogen) 4 mg/dL (8.9-20.6); Bilirubin, Total 1.1 mg/dL (0.2-1.2); Calc. Creatinine Clearance 0 mL/min (70-130); Calcium 8.7 mg/dL (7.8-10.44); Carbon Dioxide 27 mmol/L (22-29); Chloride 103 mmol/L (98-107); Estimated GFR 117; Globulin 3.2 g/dL (2.4-3.5); Glucose 112 mg/dL (70-105); Lipase 24 U/L (8-78); Potassium 3.2 mmol/L (3.5-5.1); Protein, Total 6.3 g/dL (6.0-8.3); Sodium 139 mmol/L (136-145)
[2022-10-26 18:31] LABS: Bacteria/HPF None Seen HPF (None Seen); Bilirubin Negative (Negative); Blood, Urine Negative (Negative); Clarity Clear (Clear); Glucose, Urine (Dipstick) Normal (Negative); Ketone, Urine 10 mg/dL (Negative); Leukocyte Negative Leu/uL (Negative); Mucous/LPF Rare LPF (<2+); Nitrite Negative (Negative); Protein, Urine (Dipstick) 50 mg/dL (Neg-Trace); RBC/HPF 0-3 HPF (0-3); Specific Gravity, Urine 1.043 (1.002-1.036); Squamous Epithelial 0-3 HPF (0-3); Urobilinogen 3 mg/dL (Less than 2); WBC/HPF 0-3 HPF (0-3)
[2022-10-26] MEDS ORDERED: ALPRAZolam 0.5 MG TAB PO PRN (19:39)
[2022-10-26 19:40] VITALS: BMI 34.8
[2022-10-26] MEDS ORDERED: Electrolyte Replacement Protocol 1 EACH FS SCH (19:45)
[2022-10-26] MEDS ORDERED: Acetaminophen 325 MG TAB PO PRN (19:47)
[2022-10-26] MEDS ORDERED: Ketorolac Tromethamine 30 MG/ML VIAL IVP PRN (19:47)
[2022-10-26] MEDS: Morphine 4 MG/ML VIAL SLOW IVP PRN (20:25)
[2022-10-26] MEDS: Atorvastatin Calcium 20 MG TAB PO SCH (20:26)
[2022-10-26] MEDS: Amino Acids 4.25 %/Dextrose 5% 1,000 ML IV SCH (20:26)
[2022-10-26] MEDS: oxyCODONE 5 MG TAB PO PRN (23:53)
[2022-10-26] MEDS ORDERED: Ketorolac Tromethamine 30 MG/ML VIAL IVP SCH (23:59)
[2022-10-27] MEDS: Morphine 4 MG/ML VIAL SLOW IVP PRN ×3 (06:10→22:14)
[2022-10-27] MEDS: Amino Acids 4.25 %/Dextrose 5% 1,000 ML IV SCH ×2 (06:11→18:52)
[2022-10-27 07:57] LABS: #Eosinphils 0.3 thou/uL (0.0-0.7); #Lymphocytes 1.8 thou/uL (1.20-3.40); #Monocytes 0.8 thou/uL (0.11-0.59); #Neutrophils 3.4 thou/uL (1.40-6.50); %Basophils 0.5 % (0.0-1.0); %Lymphocytes 28.5 % (21.0-51.0); %Monocytes 12.9 % (0.0-10.0); Hemoglobin 11.1 g/dL (14.0-18.0); Mean Corpuscular HGB CONC 31.6 g/dL (32.0-36.0); Mean Platelet Volume 7.7 fL (7.4-10.4); Platelet Count 332 10x3/uL (130-400); RBC Distribution Width 12.1 % (11.5-14.5); Red Blood Cell (RBC) Count 3.82 mill/uL (4.70-6.10); White Blood Cell (WBC) Count 6.4 10x3/uL (4.8-10.8)
[2022-10-27 08:18] LABS: Anion Gap 9 mmol/L (10-20); BUN (Urea Nitrogen) 5 mg/dL (8.9-20.6); Calc. Creatinine Clearance 214 mL/min (70-130); Carbon Dioxide 29 mmol/L (22-29); Chloride 100 mmol/L (98-107); Estimated GFR 117; Glucose 128 mg/dL (70-105); Magnesium 1.5 mg/dL (1.6-2.6); Phosphorus 3.3 mg/dL (2.3-4.7); Potassium 3.1 mmol/L (3.5-5.1); Sodium 135 mmol/L (136-145)
[2022-10-27] MEDS ORDERED: Potassium Chloride 20 MEQ TAB PO SCH ×2 (08:45→21:30)
[2022-10-27] MEDS: Aspirin 81 mg Enteric Coated Tablet PO SCH (09:00)
[2022-10-27] MEDS ORDERED: Magnesium 2 GM/50 ML(in water) 2 GM in Premix Bag 1 BAG IVPB SCH (09:00)
[2022-10-27] MEDS ORDERED: Amino Acids 4.25 %/Dextrose 5% 2,000 ML BAG IV SCH (09:00)
[2022-10-27] MEDS: MULTIVIT/IRON SULF/FOLIC ACID 1 EACH TAB PO SCH (09:01)
[2022-10-27] MEDS: oxyCODONE 5 MG TAB PO PRN ×2 (10:28→18:53)
[2022-10-27] MEDS: Ondansetron ODT 4 MG TAB PO PRN (15:12)
[2022-10-27 15:20] LABS: Potassium 3.3 mmol/L (3.5-5.1)
[2022-10-27] MEDS: Atorvastatin Calcium 20 MG TAB PO SCH (20:34)
[2022-10-28] MEDS: Amino Acids 4.25 %/Dextrose 5% 1,000 ML IV SCH ×2 (02:11→13:42)
[2022-10-28] MEDS: Aspirin 81 mg Enteric Coated Tablet PO SCH (07:47)
[2022-10-28] MEDS: MULTIVIT/IRON SULF/FOLIC ACID 1 EACH TAB PO SCH (07:47)
[2022-10-28 08:12] LABS: ALT (SGPT) 13 U/L (8-55); AST (SGOT) 15 U/L (5-34); Albumin 2.6 g/dL (3.5-5.0); Alkaline Phosphatase 79 U/L (40-110); Anion Gap 9 mmol/L (10-20); BUN (Urea Nitrogen) 7 mg/dL (8.9-20.6); Bilirubin, Total 0.6 mg/dL (0.2-1.2); Calc. Creatinine Clearance 223 mL/min (70-130); Calcium 8.1 mg/dL (7.8-10.44); Carbon Dioxide 27 mmol/L (22-29); Chloride 100 mmol/L (98-107); Estimated GFR 119; Globulin 2.6 g/dL (2.4-3.5); Glucose 112 mg/dL (70-105); Magnesium 1.6 mg/dL (1.6-2.6); Potassium 3.2 mmol/L (3.5-5.1); Protein, Total 5.2 g/dL (6.0-8.3); Sodium 133 mmol/L (136-145)
[2022-10-28] MEDS ORDERED: Magnesium 2 GM/50 ML(in water) 2 GM in Premix Bag 1 BAG IVPB SCH (09:00)
[2022-10-28] MEDS ORDERED: Potassium Chloride 20 MEQ TAB PO SCH (09:00)
[2022-10-28] MEDS ORDERED: MD-Gastroview 120 ML BOT ONE (09:08)
[2022-10-28] MEDS: oxyCODONE 5 MG TAB PO PRN (09:21)
[2022-10-28] MEDS: Morphine 4 MG/ML VIAL SLOW IVP PRN ×2 (13:42→21:37)
[2022-10-28] MEDS: Ondansetron PF 4 MG/2 ML Vial IVP PRN (21:46)
[2022-10-28] MEDS: Atorvastatin Calcium 20 MG TAB PO SCH (22:39)
[2022-10-29] MEDS: oxyCODONE 5 MG TAB PO PRN ×2 (00:32→17:52)
[2022-10-29] MEDS: Amino Acids 4.25 %/Dextrose 5% 1,000 ML IV SCH ×3 (01:23→17:48)
[2022-10-29] MEDS: Morphine 4 MG/ML VIAL SLOW IVP PRN ×4 (04:54→19:54)
[2022-10-29] MEDS: MULTIVIT/IRON SULF/FOLIC ACID 1 EACH TAB PO SCH (08:08)
[2022-10-29] MEDS: Aspirin 81 mg Enteric Coated Tablet PO SCH (08:08)
[2022-10-29 09:13] LABS: Anion Gap 10 mmol/L (10-20); BUN (Urea Nitrogen) 8 mg/dL (8.9-20.6); Calc. Creatinine Clearance 223 mL/min (70-130); Calcium 8.6 mg/dL (7.8-10.44); Carbon Dioxide 28 mmol/L (22-29); Chloride 101 mmol/L (98-107); Estimated GFR 119; Glucose 105 mg/dL (70-105); Potassium 3.6 mmol/L (3.5-5.1); Sodium 135 mmol/L (136-145)
[2022-10-29] MEDS: Dronabinol 2.5 MG CAP PO SCH (16:19)
[2022-10-29] MEDS: Atorvastatin Calcium 20 MG TAB PO SCH (20:04)
[2022-10-30] MEDS: Morphine 4 MG/ML VIAL SLOW IVP PRN ×6 (00:27→22:06)
[2022-10-30] MEDS ORDERED: Melatonin 3 MG TAB PO SCH (01:15)
[2022-10-30] MEDS: Amino Acids 4.25 %/Dextrose 5% 1,000 ML IV SCH ×2 (06:19→14:45)
[2022-10-30] MEDS: oxyCODONE 5 MG TAB PO PRN ×2 (06:28→16:26)
[2022-10-30] MEDS: Aspirin 81 mg Enteric Coated Tablet PO SCH (08:14)
[2022-10-30] MEDS: MULTIVIT/IRON SULF/FOLIC ACID 1 EACH TAB PO SCH (08:15)
[2022-10-30] MEDS: Dronabinol 2.5 MG CAP PO SCH ×2 (08:15→16:23)
[2022-10-30] MEDS: Atorvastatin Calcium 20 MG TAB PO SCH (21:01)
[2022-10-31] MEDS: Morphine 4 MG/ML VIAL SLOW IVP PRN ×7 (01:36→21:37)
[2022-10-31] MEDS: Amino Acids 4.25 %/Dextrose 5% 1,000 ML IV SCH ×3 (01:37→22:21)
[2022-10-31] MEDS ORDERED: Ketorolac Tromethamine 30 MG/ML VIAL IVP PRN (03:42)
[2022-10-31] MEDS: oxyCODONE 5 MG TAB PO PRN ×2 (06:07→20:10)
[2022-10-31] MEDS: MULTIVIT/IRON SULF/FOLIC ACID 1 EACH TAB PO SCH (08:32)
[2022-10-31] MEDS: Aspirin 81 mg Enteric Coated Tablet PO SCH (08:32)
[2022-10-31] MEDS: Dronabinol 2.5 MG CAP PO SCH ×2 (08:32→16:56)
[2022-10-31] MEDS: Atorvastatin Calcium 20 MG TAB PO SCH (20:10)
[2022-10-31] MEDS: Ondansetron PF 4 MG/2 ML Vial IVP PRN (21:37)
[2022-11-01] MEDS: Morphine 4 MG/ML VIAL SLOW IVP PRN (00:40)
[2022-11-01] MEDS: oxyCODONE 5 MG TAB PO PRN ×2 (06:24→20:14)
[2022-11-01] MEDS: Amino Acids 4.25 %/Dextrose 5% 1,000 ML IV SCH ×2 (08:41→16:08)
[2022-11-01] MEDS: Aspirin 81 mg Enteric Coated Tablet PO SCH (08:46)
[2022-11-01] MEDS: Dronabinol 2.5 MG CAP PO SCH ×4 (08:46→21:56)
[2022-11-01] MEDS: MULTIVIT/IRON SULF/FOLIC ACID 1 EACH TAB PO SCH (08:47)
[2022-11-01] MEDS: traMADol HCl 50 MG TAB PO PRN ×3 (09:42→21:56)
[2022-11-01] MEDS ORDERED: HYDROcodone/Acetaminophen 7.5/325 mg Tablet PO SCH (13:30)
[2022-11-01] MEDS: HYDROcodone/Acetaminophen 7.5/325 mg Tablet PO PRN (17:30)
[2022-11-01] MEDS: Ondansetron ODT 4 MG TAB PO PRN (20:15)
[2022-11-01] MEDS: Atorvastatin Calcium 20 MG TAB PO SCH (20:16)
[2022-11-01 23:54] VITALS: TEMP 98.2
[2022-11-02] MEDS: HYDROcodone/Acetaminophen 7.5/325 mg Tablet PO PRN ×3 (00:14→12:15)
[2022-11-02] MEDS: Amino Acids 4.25 %/Dextrose 5% 1,000 ML IV SCH ×2 (00:54→11:05)
[2022-11-02] MEDS: traMADol HCl 50 MG TAB PO PRN (04:21)
[2022-11-02] MEDS: Ondansetron ODT 4 MG TAB PO PRN (04:24)
[2022-11-02] MEDS: Aspirin 81 mg Enteric Coated Tablet PO SCH (08:48)
[2022-11-02] MEDS: Dronabinol 2.5 MG CAP PO SCH ×2 (08:48→14:51)
[2022-11-02] MEDS: MULTIVIT/IRON SULF/FOLIC ACID 1 EACH TAB PO SCH (11:30)
[2022-11-02 12:47] VITALS: BP 99/64
[2022-11-02] MEDS: oxyCODONE 5 MG TAB PO PRN (17:21)
== END 2022-11-02 19:04 | disposition home health service (06) | DRG 391 ==
LOC: ERS 13:32 → T4-A 17:27
PROVIDERS: ADMIT Internal Medicine; ATTEND Internal Medicine
PROC: 0D9670Z Drainage of Stomach with Drainage Device, Via Natural or Artificial Opening (ICD-10-PCS; principal; 2022-10-28)
PROC: 3E0G76Z Introduction of Nutritional Substance into Upper GI, Via Natural or Artificial Opening (ICD-10-PCS; 2022-10-31)
DX: R11.2 Nausea with vomiting, unspecified (principal); E43 Unspecified severe protein-calorie malnutrition; E87.1 Hypo-osmolality and hyponatremia; R10.13 Epigastric pain; R10.9 Unspecified abdominal pain; Z20.822 Contact with and (suspected) exposure to COVID-19; E87.6 Hypokalemia; E88.09 Other disorders of plasma-protein metabolism, not elsewhere classified; K21.9 Gastro-esophageal reflux disease without esophagitis; F32.A Depression, unspecified; K59.00 Constipation, unspecified; I50.9 Heart failure, unspecified; I11.0 Hypertensive heart disease with heart failure; G89.29 Other chronic pain; F41.9 Anxiety disorder, unspecified; Z88.1 Allergy status to other antibiotic agents; Z79.899 Other long term (current) drug therapy; Z88.0 Allergy status to penicillin; Z88.2 Allergy status to sulfonamides; Z68.34 Body mass index [BMI] 34.0-34.9, adult; Z91.14 Patient's other noncompliance with medication regimen; Z91.118 Patient's noncompliance with dietary regimen for other reason; Z81.8 Family history of other mental and behavioral disorders; Z87.891 Personal history of nicotine dependence; Z98.84 Bariatric surgery status
CPT/HCPCS: 36415; 74018; 74177; 80048; 80053; 81003; 81015; 83690; 83735; 84100; 84134; 85025; 96374; 96375; J1885; J2270; J2405; J3475; Q0162; Q0167; Q9963; Q9967; U0003; U0005

== ENCOUNTER 2022-11-14 12:05 | Emergency (ER) | payer MEDICARE, OTHER ==
[2022-11-14 13:41] LABS: Hemoglobin 12.8 g/dL (14.0-18.0); Mean Corpuscular Hemoglobin 28.1 pg (27.0-31.0); Mean Corpuscular Volume 90.7 fl (78.0-98.0); Mean Platelet Volume 7.9 fL (7.4-10.4); Platelet Count 422 10x3/uL (130-400); RBC Distribution Width 12.3 % (11.5-14.5); Red Blood Cell (RBC) Count 4.56 mill/uL (4.70-6.10)
[2022-11-14 14:13] LABS: ALT (SGPT) 23 U/L (8-55); AST (SGOT) 21 U/L (5-34); Albumin 3.4 g/dL (3.5-5.0); Alkaline Phosphatase 123 U/L (40-110); Anion Gap 18 mmol/L (10-20); BUN (Urea Nitrogen) 6 mg/dL (8.9-20.6); Bilirubin, Total 1.4 mg/dL (0.2-1.2); Calc. Creatinine Clearance 0 mL/min (70-130); Calcium 9.4 mg/dL (7.8-10.44); Carbon Dioxide 25 mmol/L (22-29); Chloride 98 mmol/L (98-107); Estimated GFR 113; Globulin 3.5 g/dL (2.4-3.5); Glucose 86 mg/dL (70-105); Lipase 19 U/L (8-78); Potassium 3.5 mmol/L (3.5-5.1); Protein, Total 6.9 g/dL (6.0-8.3); Sodium 137 mmol/L (136-145)
[2022-11-14 14:31] LABS: Lymphocytes 11 % (21-51); MDiff Complete? YES; Monocytes 14 % (0-10); Neutrophil 71 % (42-75); Platelet Morphology Comment Appears Increased; RBC Morphology Normal; Reactive Lymphocytes 4 % (0-10)
[2022-11-14] MEDS ORDERED: Fentanyl 100 MCG/2 ML VIAL ONE (14:52)
== END 2022-11-14 17:44 | disposition home or self-care (01) ==
LOC: ERS 12:05
DX: R10.812 Left upper quadrant abdominal tenderness (principal); R11.2 Nausea with vomiting, unspecified; R55 Syncope and collapse; D72.829 Elevated white blood cell count, unspecified; I50.9 Heart failure, unspecified
CPT/HCPCS: 36415; 80053; 83690; 84484; 85025; 93005; 96374; 96375; J1790; J3010

== ENCOUNTER 2022-11-27 09:51 | Day surgery (SDC) | payer MEDICARE, OTHER ==
[~2022-11-27 09:51] MED LIST changes: -GASTROGRAFIN 30 ML BOT ONE; -Iopamidol-370 76% 500 ML 1 ML ONE; +Multivitamins, Adult 10 ML, Thiamine HCl 100 MG in Sodium Chloride 0.9% 1,000 ML IV SCH; +Ondansetron PF 4 MG/2 ML Vial IVP PRN; +Sodium Chloride 0.9% 1,000 ML IV SCH
[2022-11-27 18:51] VITALS: BP 112/62; TEMP 97.5
== END 2022-11-27 18:51 | disposition home or self-care (01) ==
LOC: ONC/OP 09:51
PROVIDERS: ATTEND Surgery
DX: E86.0 Dehydration (principal); Z88.0 Allergy status to penicillin; Z88.2 Allergy status to sulfonamides
CPT/HCPCS: 96365; 96366; J3411; J7050

== ENCOUNTER → 2022-12-10 | Day surgery (SDC) | payer MEDICARE, MEDICAID | END | disposition home or self-care (01) | LOC: SPEC 08:27 | PROVIDERS: ATTEND Surgery | PROC: 02HV33Z Insertion of Infusion Device into Superior Vena Cava, Percutaneous Approach (ICD-10-PCS; principal; 2022-12-10) | DX: R62.7 Adult failure to thrive (principal); Z88.0 Allergy status to penicillin; Z88.2 Allergy status to sulfonamides | CPT/HCPCS: 36415; 36569; 80053; 83735; 84100; 85025; C1751 ==

== ENCOUNTER 2022-12-13 09:52 | Day surgery (SDC) | payer MEDICARE, MEDICAID ==
[2022-12-13] MEDS ORDERED: Ondansetron PF 4 MG/2 ML Vial IVP PRN (09:58)
[2022-12-13] MEDS ORDERED: Sodium Chloride 0.9% 1,000 ML IV SCH (10:00)
[2022-12-13 12:48] VITALS: BP 124/73; TEMP 97.8
== END 2022-12-13 12:37 | disposition home or self-care (01) ==
LOC: ONC/OP 09:52
PROVIDERS: ATTEND Surgery
DX: E86.0 Dehydration (principal); Z88.0 Allergy status to penicillin; Z88.2 Allergy status to sulfonamides
CPT/HCPCS: 96365; 96366; J3411; J7050

== ENCOUNTER 2022-12-15 14:18 | Inpatient (IN) | payer MEDICARE, MEDICAID ==
[2022-12-15] MEDS ORDERED: oxyCODONE 5 MG TAB PO SCH (15:30)
[2022-12-15 16:40] LABS: #Eosinphils 0.2 thou/uL (0.0-0.7); #Lymphocytes 2.1 thou/uL (1.20-3.40); #Monocytes 0.5 thou/uL (0.11-0.59); #Neutrophils 1.9 thou/uL (1.40-6.50); %Basophils 0.7 % (0.0-1.0); %Eosinophils 3.4 % (0.0-10.0); %Lymphocytes 44.1 % (21.0-51.0); %Monocytes 11.2 % (0.0-10.0); %Neutrophils 40.7 % (42.0-75.0); Hemoglobin 10.3 g/dL (14.0-18.0); Mean Corpuscular HGB CONC 32.1 g/dL (32.0-36.0); Mean Corpuscular Hemoglobin 29.9 pg (27.0-31.0); Mean Corpuscular Volume 93.2 fl (78.0-98.0); Mean Platelet Volume 7.9 fL (7.4-10.4); Platelet Count 285 10x3/uL (130-400); RBC Distribution Width 12.1 % (11.5-14.5); Red Blood Cell (RBC) Count 3.46 mill/uL (4.70-6.10); White Blood Cell (WBC) Count 4.7 10x3/uL (4.8-10.8)
[2022-12-15 17:01] LABS: ALT (SGPT) 26 U/L (8-55); AST (SGOT) 34 U/L (5-34); Albumin 2.8 g/dL (3.5-5.0); Alkaline Phosphatase 79 U/L (40-110); Anion Gap 14 mmol/L (10-20); BUN (Urea Nitrogen) 4 mg/dL (8.9-20.6); Calc. Creatinine Clearance 0 mL/min (70-130); Calcium 8.3 mg/dL (7.8-10.44); Carbon Dioxide 25 mmol/L (22-29); Chloride 101 mmol/L (98-107); Estimated GFR 113; Globulin 2.7 g/dL (2.4-3.5); Glucose 90 mg/dL (70-105); Potassium 3.7 mmol/L (3.5-5.1); Protein, Total 5.5 g/dL (6.0-8.3); Sodium 136 mmol/L (136-145)
[2022-12-15 18:39] VITALS: BMI 30.9
[2022-12-15] MEDS ORDERED: Promethazine HCl 12.5 MG in Sodium Chloride 0.9% 50 ML IVPB PRN (21:11)
[2022-12-15] MEDS: Ondansetron PF 4 MG/2 ML Vial IVP PRN (22:43)
[2022-12-15] MEDS: D5 0.9% NS w/ 20 mEq KCl 1,000 ML IV SCH (22:51)
[2022-12-16] MEDS ORDERED: ALPRAZolam 0.5 MG TAB PO PRN (00:18)
[2022-12-16] MEDS: oxyCODONE 5 MG TAB PO PRN ×4 (01:12→23:00)
[2022-12-16] MEDS: D5 0.9% NS w/ 20 mEq KCl 1,000 ML IV SCH ×3 (06:00→18:31)
[2022-12-16] MEDS: Ondansetron PF 4 MG/2 ML Vial IVP PRN ×2 (06:44→21:30)
[2022-12-16] MEDS ORDERED: FLU VACC QS2022-23(6MOS UP)/PF 60 MCG/0.5 ML SYRINGE IM ONE (09:00)
[2022-12-16] MEDS: Dronabinol 2.5 MG CAP PO SCH ×3 (09:20→23:00)
[2022-12-16] MEDS ORDERED: Morphine 2 MG/ML VIAL SLOW IVP PRN (10:57)
[2022-12-16] MEDS: Morphine 4 MG/ML VIAL SLOW IVP PRN ×3 (11:32→21:30)
[2022-12-16] MEDS: Multivitamins, Adult 10 ML, TRACE ELEMENT CONCENTRATE 1 ML in D15W-AA 5% with Lytes 2,0... IV SCH (13:51)
[2022-12-16] MEDS: Amitriptyline HCl 25 MG TAB PO SCH (23:01)
[2022-12-16] MEDS: Tamsulosin HCl 0.4 MG CAP PO SCH (23:01)
[2022-12-17] MEDS: Morphine 4 MG/ML VIAL SLOW IVP PRN ×3 (01:53→20:48)
[2022-12-17] MEDS: oxyCODONE 5 MG TAB PO PRN ×3 (05:03→18:09)
[2022-12-17] MEDS: Gabapentin 300 MG CAP PO SCH ×2 (09:01→20:45)
[2022-12-17] MEDS: Dronabinol 2.5 MG CAP PO SCH ×3 (09:38→22:16)
[2022-12-17] MEDS: Ondansetron PF 4 MG/2 ML Vial IVP PRN ×2 (11:55→18:10)
[2022-12-17] MEDS ORDERED: Multivitamins, Adult 10 ML, TRACE ELEMENT CONCENTRATE 1 ML in D15W-AA 5% with Lytes 2,0... IV SCH (14:00)
[2022-12-17] MEDS: Multivitamins, Adult 10 ML, TRACE ELEMENT CONCENTRATE 1 ML in D15W-AA 5% with Lytes 2,0... IV SCH (14:07)
[2022-12-17] MEDS: Tamsulosin HCl 0.4 MG CAP PO SCH (20:45)
[2022-12-17] MEDS: Amitriptyline HCl 25 MG TAB PO SCH (20:45)
[2022-12-18] MEDS: oxyCODONE 5 MG TAB PO PRN ×4 (00:25→23:25)
[2022-12-18] MEDS: Ondansetron PF 4 MG/2 ML Vial IVP PRN ×2 (03:48→21:14)
[2022-12-18] MEDS: Morphine 4 MG/ML VIAL SLOW IVP PRN ×5 (03:49→21:14)
[2022-12-18] MEDS: Gabapentin 300 MG CAP PO SCH ×2 (09:03→21:59)
[2022-12-18] MEDS: Dronabinol 2.5 MG CAP PO SCH ×3 (09:03→21:59)
[2022-12-18] MEDS: Multivitamins, Adult 10 ML, TRACE ELEMENT CONCENTRATE 1 ML in D15W-AA 5% with Lytes 2,0... IV SCH (14:26)
[2022-12-18] MEDS: Amitriptyline HCl 25 MG TAB PO SCH (21:59)
[2022-12-18] MEDS: Tamsulosin HCl 0.4 MG CAP PO SCH (21:59)
[2022-12-19] MEDS: Morphine 4 MG/ML VIAL SLOW IVP PRN ×2 (02:31→10:35)
[2022-12-19] MEDS: oxyCODONE 5 MG TAB PO PRN ×2 (07:43→14:44)
[2022-12-19] MEDS: Dronabinol 2.5 MG CAP PO SCH (08:54)
[2022-12-19] MEDS: Gabapentin 300 MG CAP PO SCH (08:55)
[2022-12-19 10:57] LABS: #Eosinphils 0.2 thou/uL (0.0-0.7); #Lymphocytes 2.5 thou/uL (1.20-3.40); #Monocytes 0.8 thou/uL (0.11-0.59); #Neutrophils 1.7 thou/uL (1.40-6.50); %Basophils 0.7 % (0.0-1.0); %Eosinophils 3.6 % (0.0-10.0); %Lymphocytes 47.9 % (21.0-51.0); %Monocytes 14.6 % (0.0-10.0); %Neutrophils 33.2 % (42.0-75.0); Hemoglobin 11.6 g/dL (14.0-18.0); Mean Corpuscular HGB CONC 32.4 g/dL (32.0-36.0); Mean Corpuscular Hemoglobin 30.1 pg (27.0-31.0); Mean Platelet Volume 8.6 fL (7.4-10.4); Platelet Count 281 10x3/uL (130-400); Red Blood Cell (RBC) Count 3.85 mill/uL (4.70-6.10); White Blood Cell (WBC) Count 5.1 10x3/uL (4.8-10.8)
[2022-12-19 11:22] LABS: Phosphorus 3.8 mg/dL (2.3-4.7)
[2022-12-19 11:25] LABS: ALT (SGPT) 23 U/L (8-55); AST (SGOT) 30 U/L (5-34); Albumin 2.9 g/dL (3.5-5.0); Alkaline Phosphatase 98 U/L (40-110); Anion Gap 12 mmol/L (10-20); BUN (Urea Nitrogen) 7 mg/dL (8.9-20.6); Bilirubin, Total 0.7 mg/dL (0.2-1.2); Calc. Creatinine Clearance 177 mL/min (70-130); Calcium 8.4 mg/dL (7.8-10.44); Carbon Dioxide 25 mmol/L (22-29); Chloride 101 mmol/L (98-107); Estimated GFR 113; Globulin 3.2 g/dL (2.4-3.5); Glucose 101 mg/dL (70-105); Magnesium 1.7 mg/dL (1.6-2.6); Potassium 4.2 mmol/L (3.5-5.1); Protein, Total 6.1 g/dL (6.0-8.3); Sodium 134 mmol/L (136-145); Triglycerides 68 mg/dL (Less than 150)
[2022-12-19] MEDS: Multivitamins, Adult 10 ML, TRACE ELEMENT CONCENTRATE 1 ML in D15W-AA 5% with Lytes 2,0... IV SCH (14:24)
[2022-12-19 15:45] VITALS: BP 106/74; TEMP 97.3
== END 2022-12-19 15:40 | disposition home or self-care (01) | DRG 641 ==
LOC: ERS 14:18 → SURG B 15:16 → OBSVTOIN 12-17 14:04
PROVIDERS: ADMIT Surgery; ATTEND Surgery
PROC: 3E0336Z Introduction of Nutritional Substance into Peripheral Vein, Percutaneous Approach (ICD-10-PCS; principal; 2022-12-17)
DX: E43 Unspecified severe protein-calorie malnutrition (principal); Z68.31 Body mass index [BMI] 31.0-31.9, adult; I11.0 Hypertensive heart disease with heart failure; I50.9 Heart failure, unspecified; F32.A Depression, unspecified; M10.9 Gout, unspecified; Z96.611 Presence of right artificial shoulder joint; Z95.0 Presence of cardiac pacemaker; Z90.49 Acquired absence of other specified parts of digestive tract; Z79.899 Other long term (current) drug therapy; Z88.1 Allergy status to other antibiotic agents; Z88.0 Allergy status to penicillin
CPT/HCPCS: 36416; 80053; 83735; 84100; 84478; 85025; 96374; 96375; 96376; 99284; G0378; J2270; J2272; J2405; J3480; Q0167

== ENCOUNTER 2023-01-21 09:38 | Inpatient (IN) | payer MEDICARE, MEDICAID ==
[2023-01-21 11:02] LABS: Hemoglobin 11.8 g/dL (14.0-18.0); Mean Corpuscular HGB CONC 33.4 g/dL (32.0-36.0); Mean Corpuscular Hemoglobin 29.8 pg (27.0-31.0); Mean Corpuscular Volume 89.2 fl (78.0-98.0); Mean Platelet Volume 7.9 fL (7.4-10.4); Platelet Count 246 10x3/uL (130-400); RBC Distribution Width 12.2 % (11.5-14.5); Red Blood Cell (RBC) Count 3.96 mill/uL (4.70-6.10); White Blood Cell (WBC) Count 22.8 10x3/uL (4.8-10.8)
[2023-01-21 11:08] LABS: ALT (SGPT) 8 U/L (8-55); AST (SGOT) 11 U/L (5-34); Albumin 3.4 g/dL (3.5-5.0); Alkaline Phosphatase 32 U/L (40-110); Anion Gap 14 mmol/L (10-20); BUN (Urea Nitrogen) 24 mg/dL (8.9-20.6); Bilirubin, Total 0.6 mg/dL (0.2-1.2); Calc. Creatinine Clearance 0 mL/min (70-130); Calcium 8.8 mg/dL (7.8-10.44); Carbon Dioxide 20 mmol/L (22-29); Chloride 102 mmol/L (98-107); Estimated GFR 94; Globulin 3.1 g/dL (2.4-3.5); Glucose 124 mg/dL (70-105); Potassium 3.9 mmol/L (3.5-5.1); Protein, Total 6.5 g/dL (6.0-8.3); Sodium 132 mmol/L (136-145)
[2023-01-21 11:14] LABS: Band 17 % (5-11); Lymphocytes 1 % (21-51); MDiff Complete? YES; Monocytes 3 % (0-10); Neutrophil 79 % (42-75); Platelet Morphology Comment Appears Adequate; Polychromasia SLIGHT = 2-3 cells (100X) (0-2/hpf)
[2023-01-21] MEDS ORDERED: Metoclopramide HCl 10 MG/2 ML VIAL ONE (11:56)
[2023-01-21] MEDS ORDERED: Vancomycin 1 GM/200 ML (FROZEN) BAG ONE (11:56)
[2023-01-21] MEDS ORDERED: Morphine 4 MG/ML VIAL ONE (13:29)
[2023-01-21] MEDS ORDERED: Acetaminophen 325 MG TAB ONE (13:32)
[2023-01-21 14:20] LABS: Lactic Acid 3.8 mmol/L (0.5-2.2)
[2023-01-21 14:38] LABS: Bacteria/HPF None Seen HPF (None Seen); Bilirubin Negative (Negative); Blood, Urine 1+ (Negative); Clarity Clear (Clear); Glucose, Urine (Dipstick) Normal (Negative); Ketone, Urine Negative (Negative); Leukocyte 25 Leu/uL (Negative); Nitrite Negative (Negative); Protein, Urine (Dipstick) Negative (Neg-Trace); Specific Gravity, Urine 1.017 (1.002-1.036); Squamous Epithelial 0-3 HPF (0-3); Urobilinogen Normal mg/dL (Less than 2); pH, Urine 5.5 (5.0-9.0)
[2023-01-21] MEDS ORDERED: Fentanyl 100 MCG/2 ML VIAL SLOW IVP PRN ×2 (15:17)
[2023-01-21] MEDS ORDERED: Acetaminophen 325 MG TAB PO PRN (15:17)
[2023-01-21 16:26] VITALS: BMI 30.6
[2023-01-21] MEDS ORDERED: fentaNYL 50 mcg/mL 1 mL Vial ONE (16:47)
[2023-01-21] MEDS: Sodium Chloride 0.9% 1,000 ML IV SCH (18:26)
[2023-01-21] MEDS: Nystatin 500,000 UNITS/5 ML UDCUP SSW SCH ×2 (18:27→22:19)
[2023-01-21] MEDS ORDERED: Ondansetron PF 4 MG/2 ML Vial ONE (18:44)
[2023-01-21] MEDS: Ondansetron PF 4 MG/2 ML Vial IVP SCH ×2 (19:02→23:05)
[2023-01-21] MEDS: Pantoprazole 40 MG VIAL IVP SCH (22:18)
[2023-01-21] MEDS: Pregabalin 25 MG CAP PO SCH (22:19)
[2023-01-21] MEDS ORDERED: fentaNYL 50 mcg/mL 1 mL Vial SLOW IVP PRN (23:00)
[2023-01-21] MEDS: VANCOMYCIN 1.75 GM/500 ML BAG 1.75 GM in Premix Bag 1 BAG IVPB SCH (23:04)
[2023-01-21] MEDS: fentaNYL 50 mcg/mL 1 mL Vial SLOW IVP PRN (23:05)
[2023-01-22] MEDS: fentaNYL 50 mcg/mL 1 mL Vial SLOW IVP PRN ×4 (03:18→13:43)
[2023-01-22] MEDS: Sodium Chloride 0.9% 1,000 ML IV SCH ×2 (04:10→12:40)
[2023-01-22] MEDS: cefTRIAXone\\ROCEPHIN 2 GM in Sodium Chloride 0.9% 100 ML IVPB SCH (05:17)
[2023-01-22] MEDS: Ondansetron PF 4 MG/2 ML Vial IVP SCH ×3 (05:17→18:40)
[2023-01-22 06:04] LABS: Anion Gap 9 mmol/L (10-20); BUN (Urea Nitrogen) 17 mg/dL (8.9-20.6); Calc. Creatinine Clearance 170 mL/min (70-130); Calcium 8.6 mg/dL (7.8-10.44); Carbon Dioxide 23 mmol/L (22-29); Chloride 104 mmol/L (98-107); Estimated GFR 112; Glucose 95 mg/dL (70-105); Potassium 3.4 mmol/L (3.5-5.1); Sodium 133 mmol/L (136-145)
[2023-01-22] MEDS ORDERED: diphenhydrAMINE 30 GM TUBE TOP PRN (06:19)
[2023-01-22 06:23] LABS: Band 10 % (5-11); Eosinophils 1 % (0-10); Hemoglobin 11.1 g/dL (14.0-18.0); Hypochromia SLIGHT = 6-15 cells (100X) (0-5/hpf); Lymphocytes 10 % (21-51); MDiff Complete? YES; Mean Corpuscular HGB CONC 34.2 g/dL (32.0-36.0); Mean Corpuscular Hemoglobin 30.6 pg (27.0-31.0); Mean Corpuscular Volume 89.3 fl (78.0-98.0); Mean Platelet Volume 8.3 fL (7.4-10.4); Monocytes 12 % (0-10); Neutrophil 67 % (42-75); Platelet Count 216 10x3/uL (130-400); Platelet Morphology Comment Appears Adequate; RBC Distribution Width 12.2 % (11.5-14.5); Red Blood Cell (RBC) Count 3.63 mill/uL (4.70-6.10); White Blood Cell (WBC) Count 16.2 10x3/uL (4.8-10.8)
[2023-01-22] MEDS: DULoxetine 20 MG CAP PO SCH (08:04)
[2023-01-22] MEDS: Pantoprazole 40 MG VIAL IVP SCH ×2 (08:04→20:18)
[2023-01-22] MEDS: Pregabalin 25 MG CAP PO SCH ×2 (08:04→16:25)
[2023-01-22] MEDS: Nystatin 500,000 UNITS/5 ML UDCUP SSW SCH ×4 (08:07→20:18)
[2023-01-22] MEDS: VANCOMYCIN 1.75 GM/500 ML BAG 1.75 GM in Premix Bag 1 BAG IVPB SCH (12:40)
[2023-01-22] MEDS ORDERED: OXYCODONE HCL 20 MG PO PRN (15:48)
[2023-01-22] MEDS ORDERED: Bisacodyl 10 MG SUPP PR PRN (15:57)
[2023-01-22] MEDS: Morphine 2 MG/ML VIAL SLOW IVP PRN ×2 (16:24→20:26)
[2023-01-22] MEDS: oxyCODONE 5 MG TAB PO PRN (18:42)
[2023-01-22] MEDS: Gabapentin 300 MG CAP PO SCH (20:17)
[2023-01-22] MEDS: Tamsulosin HCl 0.4 MG CAP PO SCH (20:18)
[2023-01-22] MEDS: Amitriptyline HCl 25 MG TAB PO SCH (20:18)
[2023-01-22] MEDS: Sacubitril 24MG/Valsartan 26 MG TAB PO SCH (20:19)
[2023-01-23] MEDS: oxyCODONE 5 MG TAB PO PRN ×4 (01:45→23:40)
[2023-01-23] MEDS: Ondansetron PF 4 MG/2 ML Vial IVP SCH ×5 (01:48→23:41)
[2023-01-23] MEDS: cefTRIAXone\\ROCEPHIN 2 GM in Sodium Chloride 0.9% 100 ML IVPB SCH (05:21)
[2023-01-23] MEDS: Morphine 2 MG/ML VIAL SLOW IVP PRN (05:26)
[2023-01-23] MEDS: Sodium Chloride 0.9% 1,000 ML IV SCH (05:26)
[2023-01-23 07:10] LABS: Anion Gap 10 mmol/L (10-20); BUN (Urea Nitrogen) 12 mg/dL (8.9-20.6); Calc. Creatinine Clearance 170 mL/min (70-130); Calcium 8.4 mg/dL (7.8-10.44); Carbon Dioxide 23 mmol/L (22-29); Chloride 103 mmol/L (98-107); Estimated GFR 112; Glucose 94 mg/dL (70-105); Potassium 3.4 mmol/L (3.5-5.1); Sodium 133 mmol/L (136-145)
[2023-01-23 07:46] LABS: #Eosinphils 0.1 thou/uL (0.0-0.7); #Lymphocytes 1.2 thou/uL (1.20-3.40); #Monocytes 0.9 thou/uL (0.11-0.59); #Neutrophils 4.8 thou/uL (1.40-6.50); %Basophils 0.6 % (0.0-1.0); %Eosinophils 1.3 % (0.0-10.0); %Lymphocytes 17.5 % (21.0-51.0); %Monocytes 13.3 % (0.0-10.0); %Neutrophils 67.3 % (42.0-75.0); Hemoglobin 10.5 g/dL (14.0-18.0); Mean Corpuscular HGB CONC 32.5 g/dL (32.0-36.0); Mean Corpuscular Hemoglobin 29.4 pg (27.0-31.0); Mean Corpuscular Volume 90.5 fl (78.0-98.0); Mean Platelet Volume 8.6 fL (7.4-10.4); Platelet Count 208 10x3/uL (130-400); RBC Distribution Width 12.4 % (11.5-14.5); Red Blood Cell (RBC) Count 3.59 mill/uL (4.70-6.10); White Blood Cell (WBC) Count 7.1 10x3/uL (4.8-10.8)
[2023-01-23] MEDS: Nystatin 500,000 UNITS/5 ML UDCUP SSW SCH ×4 (09:41→20:29)
[2023-01-23] MEDS: Sacubitril 24MG/Valsartan 26 MG TAB PO SCH ×2 (09:43→20:30)
[2023-01-23] MEDS: DULoxetine 20 MG CAP PO SCH (09:43)
[2023-01-23] MEDS: Gabapentin 300 MG CAP PO SCH ×2 (09:44→20:29)
[2023-01-23] MEDS: Pantoprazole 40 MG VIAL IVP SCH ×2 (09:45→20:29)
[2023-01-23] MEDS: Multivitamins, Adult 10 ML, MULTITRACE-4 CONC VIAL 1 ML in D15W-AA 5% with Lytes 2,000 ML IV SCH (14:45)
[2023-01-23] MEDS: Amitriptyline HCl 25 MG TAB PO SCH (20:30)
[2023-01-23] MEDS: Tamsulosin HCl 0.4 MG CAP PO SCH (20:30)
[2023-01-24] MEDS: Ondansetron PF 4 MG/2 ML Vial IVP SCH ×4 (05:26→23:39)
[2023-01-24] MEDS: oxyCODONE 5 MG TAB PO PRN ×4 (05:26→23:38)
[2023-01-24] MEDS: cefTRIAXone\\ROCEPHIN 2 GM in Sodium Chloride 0.9% 100 ML IVPB SCH (05:34)
[2023-01-24 06:54] LABS: Hemoglobin 10.6 g/dL (14.0-18.0); Mean Corpuscular HGB CONC 33.9 g/dL (32.0-36.0); Mean Corpuscular Hemoglobin 30.6 pg (27.0-31.0); Mean Corpuscular Volume 90.3 fl (78.0-98.0); Mean Platelet Volume 7.9 fL (7.4-10.4); Platelet Count 212 10x3/uL (130-400); RBC Distribution Width 12.2 % (11.5-14.5); Red Blood Cell (RBC) Count 3.47 mill/uL (4.70-6.10); White Blood Cell (WBC) Count 4.4 10x3/uL (4.8-10.8)
[2023-01-24 07:14] LABS: Anion Gap 11 mmol/L (10-20); BUN (Urea Nitrogen) 10 mg/dL (8.9-20.6); Calc. Creatinine Clearance 177 mL/min (70-130); Calcium 8.1 mg/dL (7.8-10.44); Carbon Dioxide 24 mmol/L (22-29); Chloride 102 mmol/L (98-107); Estimated GFR 113; Glucose 108 mg/dL (70-105); Potassium 3.5 mmol/L (3.5-5.1); Sodium 133 mmol/L (136-145)
[2023-01-24 08:26] LABS: Band 2 % (5-11); Eosinophils 1 % (0-10); Lymphocytes 50 % (21-51); MDiff Complete? YES; Monocytes 10 % (0-10); Neutrophil 33 % (42-75); Platelet Morphology Comment Appears Adequate; RBC Morphology Normal; Reactive Lymphocytes 4 % (0-10)
[2023-01-24] MEDS: Gabapentin 300 MG CAP PO SCH ×2 (08:43→20:42)
[2023-01-24] MEDS: Sacubitril 24MG/Valsartan 26 MG TAB PO SCH ×2 (08:43→20:41)
[2023-01-24] MEDS: Pantoprazole 40 MG VIAL IVP SCH ×2 (08:44→20:41)
[2023-01-24] MEDS: Nystatin 500,000 UNITS/5 ML UDCUP SSW SCH ×4 (08:44→20:43)
[2023-01-24] MEDS: DULoxetine 20 MG CAP PO SCH (09:14)
[2023-01-24] MEDS ORDERED: Cosyntropin 250 MCG VIAL SLOW IVP SCH (12:00)
[2023-01-24] MEDS: MULTITRACE IV SCH (13:31)
[2023-01-24] MEDS: [UNRECOGNIZED DRUG - OTHER] IV SCH (13:31)
[2023-01-24] MEDS: FAT EMULSION IV SCH (13:31)
[2023-01-24] MEDS: MULTIVITAMINS IV SCH (13:31)
[2023-01-24] MEDS: Amitriptyline HCl 25 MG TAB PO SCH (20:42)
[2023-01-24] MEDS: Tamsulosin HCl 0.4 MG CAP PO SCH (20:42)
[2023-01-25] MEDS: oxyCODONE 5 MG TAB PO PRN ×4 (05:17→23:48)
[2023-01-25] MEDS: Ondansetron PF 4 MG/2 ML Vial IVP SCH ×4 (05:18→23:48)
[2023-01-25 07:23] LABS: Anion Gap 12 mmol/L (10-20); BUN (Urea Nitrogen) 9 mg/dL (8.9-20.6); Calc. Creatinine Clearance 177 mL/min (70-130); Calcium 8.5 mg/dL (7.8-10.44); Carbon Dioxide 25 mmol/L (22-29); Chloride 102 mmol/L (98-107); Estimated GFR 113; Glucose 100 mg/dL (70-105); Potassium 3.5 mmol/L (3.5-5.1); Sodium 135 mmol/L (136-145)
[2023-01-25] MEDS: Sacubitril 24MG/Valsartan 26 MG TAB PO SCH ×2 (08:16→20:29)
[2023-01-25] MEDS: Gabapentin 300 MG CAP PO SCH ×2 (08:17→20:30)
[2023-01-25] MEDS: DULoxetine 20 MG CAP PO SCH (08:18)
[2023-01-25] MEDS: Pantoprazole 40 MG VIAL IVP SCH ×2 (08:18→20:29)
[2023-01-25 08:30] LABS: Band 2 % (5-11); Eosinophils 4 % (0-10); Hemoglobin 10.5 g/dL (14.0-18.0); Hypochromia SLIGHT = 6-15 cells (100X) (0-5/hpf); Lymphocytes 54 % (21-51); MDiff Complete? YES; Mean Corpuscular HGB CONC 31.8 g/dL (32.0-36.0); Mean Corpuscular Hemoglobin 29.1 pg (27.0-31.0); Mean Corpuscular Volume 91.6 fl (78.0-98.0); Mean Platelet Volume 7.9 fL (7.4-10.4); Monocytes 8 % (0-10); Neutrophil 28 % (42-75); Platelet Count 242 10x3/uL (130-400); Platelet Morphology Comment Appears Adequate; Polychromasia SLIGHT = 2-3 cells (100X) (0-2/hpf); RBC Distribution Width 12.4 % (11.5-14.5); Reactive Lymphocytes 4 % (0-10); Red Blood Cell (RBC) Count 3.62 mill/uL (4.70-6.10); White Blood Cell (WBC) Count 4.3 10x3/uL (4.8-10.8)
[2023-01-25] MEDS: Nystatin 500,000 UNITS/5 ML UDCUP SSW SCH ×4 (09:02→20:29)
[2023-01-25] MEDS ORDERED: Hydrocortisone Sod Succ/PF 250 mg/2 ml Vial SLOW IVP SCH (09:30)
[2023-01-25] MEDS ORDERED: Hydrocortisone Sod Succ/PF 500 mg/4 ml Vial SLOW IVP SCH (09:30)
[2023-01-25] MEDS ORDERED: Dexamethasone 4 mg/ml Vial SLOW IVP SCH (10:15)
[2023-01-25] MEDS: Multivitamins, Adult 10 ML, MULTITRACE-4 CONC VIAL 1 ML in D15W-AA 5% with Lytes 2,000 ML IV SCH (15:00)
[2023-01-25] MEDS: Amitriptyline HCl 25 MG TAB PO SCH (20:29)
[2023-01-25] MEDS: Tamsulosin HCl 0.4 MG CAP PO SCH (20:29)
[2023-01-26] MEDS: oxyCODONE 5 MG TAB PO PRN ×4 (05:29→23:15)
[2023-01-26] MEDS: Ondansetron PF 4 MG/2 ML Vial IVP SCH ×4 (05:29→23:14)
[2023-01-26 07:35] LABS: #Lymphocytes 1.9 thou/uL (1.20-3.40); #Monocytes 0.8 thou/uL (0.11-0.59); #Neutrophils 7.2 thou/uL (1.40-6.50); %Basophils 0.4 % (0.0-1.0); %Eosinophils 0.5 % (0.0-10.0); %Lymphocytes 19.3 % (21.0-51.0); %Neutrophils 71.8 % (42.0-75.0); Hemoglobin 10.4 g/dL (14.0-18.0); Mean Corpuscular Hemoglobin 29.1 pg (27.0-31.0); Mean Corpuscular Volume 90.8 fl (78.0-98.0); Mean Platelet Volume 7.6 fL (7.4-10.4); Platelet Count 248 10x3/uL (130-400); RBC Distribution Width 12.2 % (11.5-14.5); Red Blood Cell (RBC) Count 3.56 mill/uL (4.70-6.10)
[2023-01-26 07:45] LABS: Anion Gap 8 mmol/L (10-20); BUN (Urea Nitrogen) 11 mg/dL (8.9-20.6); Calc. Creatinine Clearance 174 mL/min (70-130); Calcium 8.6 mg/dL (7.8-10.44); Carbon Dioxide 30 mmol/L (22-29); Chloride 101 mmol/L (98-107); Estimated GFR 112; Glucose 114 mg/dL (70-105); Potassium 4.1 mmol/L (3.5-5.1); Sodium 135 mmol/L (136-145)
[2023-01-26] MEDS: Nystatin 500,000 UNITS/5 ML UDCUP SSW SCH ×4 (08:56→20:12)
[2023-01-26] MEDS: Pantoprazole 40 MG VIAL IVP SCH ×2 (08:57→20:12)
[2023-01-26] MEDS: Gabapentin 300 MG CAP PO SCH ×2 (08:57→20:12)
[2023-01-26] MEDS: Sacubitril 24MG/Valsartan 26 MG TAB PO SCH ×2 (08:57→20:11)
[2023-01-26 09:13] LABS: Free T4 (Free Thyroxine) 0.9 ng/dL (0.70-1.48); Thyroid Stimulating Hormone 0.2963 uIU/mL (0.35-4.94)
[2023-01-26] MEDS: DULoxetine 20 MG CAP PO SCH (12:11)
[2023-01-26] MEDS: Multivitamins, Adult 10 ML, MULTITRACE-4 CONC VIAL 1 ML in D15W-AA 5% with Lytes 2,000 ML IV SCH (14:21)
[2023-01-26] MEDS: Tamsulosin HCl 0.4 MG CAP PO SCH (20:12)
[2023-01-26] MEDS: Amitriptyline HCl 25 MG TAB PO SCH (20:12)
[2023-01-27] MEDS: Ondansetron PF 4 MG/2 ML Vial IVP SCH ×3 (05:49→17:31)
[2023-01-27] MEDS: oxyCODONE 5 MG TAB PO PRN ×2 (05:49→14:06)
[2023-01-27 07:50] VITALS: TEMP 98.1
[2023-01-27 08:21] LABS: #Basophils 0.1 thou/uL (0.0-0.2); #Eosinphils 0.3 thou/uL (0.0-0.7); #Lymphocytes 3.6 thou/uL (1.20-3.40); #Monocytes 0.8 thou/uL (0.11-0.59); #Neutrophils 3.2 thou/uL (1.40-6.50); %Basophils 0.8 % (0.0-1.0); %Eosinophils 3.6 % (0.0-10.0); %Lymphocytes 45.3 % (21.0-51.0); %Monocytes 9.9 % (0.0-10.0); %Neutrophils 40.4 % (42.0-75.0); Hemoglobin 10.5 g/dL (14.0-18.0); Mean Corpuscular HGB CONC 31.5 g/dL (32.0-36.0); Mean Corpuscular Hemoglobin 28.6 pg (27.0-31.0); Mean Corpuscular Volume 90.9 fl (78.0-98.0); Mean Platelet Volume 7.7 fL (7.4-10.4); Platelet Count 250 10x3/uL (130-400); RBC Distribution Width 12.6 % (11.5-14.5); Red Blood Cell (RBC) Count 3.67 mill/uL (4.70-6.10)
[2023-01-27 08:54] LABS: Anion Gap 10 mmol/L (10-20); BUN (Urea Nitrogen) 11 mg/dL (8.9-20.6); Calc. Creatinine Clearance 170 mL/min (70-130); Calcium 8.1 mg/dL (7.8-10.44); Carbon Dioxide 27 mmol/L (22-29); Chloride 101 mmol/L (98-107); Estimated GFR 112; Glucose 95 mg/dL (70-105); Potassium 3.7 mmol/L (3.5-5.1); Sodium 134 mmol/L (136-145)
[2023-01-27] MEDS: Pantoprazole 40 MG VIAL IVP SCH (09:04)
[2023-01-27] MEDS: Nystatin 500,000 UNITS/5 ML UDCUP SSW SCH ×3 (09:05→17:31)
[2023-01-27] MEDS: Gabapentin 300 MG CAP PO SCH (09:05)
[2023-01-27] MEDS: Sacubitril 24MG/Valsartan 26 MG TAB PO SCH (09:05)
[2023-01-27] MEDS: DULoxetine 20 MG CAP PO SCH (09:05)
[2023-01-27] MEDS: MULTIVITAMINS IV SCH (14:05)
[2023-01-27] MEDS: [UNRECOGNIZED DRUG - OTHER] IV SCH (14:05)
[2023-01-27] MEDS: MULTITRACE IV SCH (14:05)
[2023-01-27] MEDS: FAT EMULSION IV SCH (14:05)
[2023-01-27 16:32] VITALS: BP 127/88
== END 2023-01-27 18:11 | disposition home or self-care (01) | DRG 392 ==
LOC: ERS 09:38 → ERHOLD 13:44 → T4-B 21:53
PROVIDERS: ADMIT Family Medicine; ATTEND Hospitalist
DX: R10.9 Unspecified abdominal pain (principal); I50.32 Chronic diastolic (congestive) heart failure; E27.40 Unspecified adrenocortical insufficiency; N39.0 Urinary tract infection, site not specified; E87.1 Hypo-osmolality and hyponatremia; E87.20 Acidosis, unspecified; E44.0 Moderate protein-calorie malnutrition; M10.9 Gout, unspecified; E66.01 Morbid (severe) obesity due to excess calories; R62.7 Adult failure to thrive; B37.9 Candidiasis, unspecified; G89.29 Other chronic pain; D64.9 Anemia, unspecified; E78.5 Hyperlipidemia, unspecified; Z96.611 Presence of right artificial shoulder joint; F41.9 Anxiety disorder, unspecified; F32.A Depression, unspecified; Z95.0 Presence of cardiac pacemaker; Z98.84 Bariatric surgery status; Z88.1 Allergy status to other antibiotic agents; Z88.0 Allergy status to penicillin; Z88.2 Allergy status to sulfonamides; Z90.49 Acquired absence of other specified parts of digestive tract; Z68.30 Body mass index [BMI] 30.0-30.9, adult
CPT/HCPCS: 36415; 71045; 80048; 80053; 80400; 82024; 82533; 83605; 83735; 84100; 84439; 84443; 84478; 85025; 87086; 93005; 96365; 96366; 96375; C9113; J0696; J0834; J1100; J1650; J2270; J2272; J2405; J2765; J3010; J3370; J3370-JW; J3490; J7050

== ENCOUNTER → 2023-02-26 | Day surgery (SDC) | payer MEDICARE, MEDICAID | END | disposition home or self-care (01) | LOC: SPEC 07:06 | PROVIDERS: ATTEND Surgery | PROC: 02PY33Z Removal of Infusion Device from Great Vessel, Percutaneous Approach (ICD-10-PCS; principal; 2023-02-26) | PROC: 02HV33Z Insertion of Infusion Device into Superior Vena Cava, Percutaneous Approach (ICD-10-PCS; 2023-02-26) | PROC: B518ZZA Fluoroscopy of Superior Vena Cava, Guidance (ICD-10-PCS; 2023-02-26) | DX: Z45.2 Encounter for adjustment and management of vascular access device (principal); Z88.0 Allergy status to penicillin; Z88.2 Allergy status to sulfonamides | CPT/HCPCS: 36569; C1751 ==

== ENCOUNTER 2023-04-16 10:35 | Inpatient (IN) | payer MEDICARE, MEDICAID ==
[~2023-04-16 10:35] MED LIST changes: +Iopamidol-370 76% 500 ML MDV (1 ML CHARGE) ONE; -Multivitamins, Adult 10 ML, Thiamine HCl 100 MG in Sodium Chloride 0.9% 1,000 ML IV SCH; -Ondansetron PF 4 MG/2 ML Vial IVP PRN; -Sodium Chloride 0.9% 1,000 ML IV SCH
[2023-04-16 11:49] LABS: #Monocytes 0.2 thou/uL (0.11-0.59); #Neutrophils 3.5 thou/uL (1.40-6.50); %Basophils 0.2 % (0.0-1.0); %Eosinophils 0.5 % (0.0-10.0); %Lymphocytes 15.1 % (21.0-51.0); %Monocytes 5.2 % (0.0-10.0); %Neutrophils 78.8 % (42.0-75.0); Hemoglobin 10.2 g/dL (14.0-18.0); Mean Corpuscular HGB CONC 33.7 g/dL (32.0-36.0); Mean Corpuscular Hemoglobin 31.6 pg (27.0-31.0); Mean Corpuscular Volume 93.8 fl (78.0-98.0); Mean Platelet Volume 10.6 fL (7.4-10.4); Platelet Count 178 10x3/uL (130-400); RBC Distribution Width 15.9 % (11.5-14.5); Red Blood Cell (RBC) Count 3.23 mill/uL (4.70-6.10); White Blood Cell (WBC) Count 4.4 10x3/uL (4.8-10.8)
[2023-04-16] MEDS ORDERED: Morphine 4 MG/ML VIAL ONE (11:51)
[2023-04-16] MEDS ORDERED: Pantoprazole 40 MG VIAL ONE (11:51)
[2023-04-16 12:10] LABS: Albumin 3.7 g/dL (3.5-5.0)
[2023-04-16 12:11] LABS: Chloride 98 mmol/L (98-107); Potassium 3.4 mmol/L (3.5-5.1); Sodium 136 mmol/L (136-145)
[2023-04-16 12:12] LABS: Calcium 9.2 mg/dL (7.8-10.44); Glucose 97 mg/dL (70-105)
[2023-04-16 12:13] LABS: Globulin 2.7 g/dL (2.4-3.5); Protein, Total 6.4 g/dL (6.0-8.3)
[2023-04-16 12:14] LABS: Anion Gap 13 mmol/L (10-20); Bilirubin, Total 1.5 mg/dL (0.2-1.2); Carbon Dioxide 28 mmol/L (22-29)
[2023-04-16 12:15] LABS: Alkaline Phosphatase 62 U/L (40-110)
[2023-04-16 12:16] LABS: Calc. Creatinine Clearance 0 mL/min (70-130); Estimated GFR 102
[2023-04-16 12:17] LABS: BUN (Urea Nitrogen) 16 mg/dL (8.9-20.6)
[2023-04-16 12:18] LABS: ALT (SGPT) 8 U/L (8-55); AST (SGOT) 9 U/L (5-34)
[2023-04-16 12:19] LABS: CK (CPK) 61 U/L (30-200); Lipase Less than 4 U/L (8-78)
[2023-04-16] MEDS ORDERED: ALPRAZolam 0.5 MG TAB PO PRN (14:47)
[2023-04-16] MEDS ORDERED: Ondansetron ODT 4 MG TAB PO PRN (14:47)
[2023-04-16 15:15] LABS: Bacteria/HPF None Seen HPF (None Seen); Bilirubin Negative (Negative); Blood, Urine Negative (Negative); CAUTI Indications for Culture Dysuria,urgency,freq; Clarity Turbid (Clear); Glucose, Urine (Dipstick) Normal (Negative); Ketone, Urine Trace mg/dL (Negative); Leukocyte Negative Leu/uL (Negative); Nitrite Negative (Negative); Protein, Urine (Dipstick) 20 mg/dL (Neg-Trace); Specific Gravity, Urine 1.039 (1.002-1.036); Squamous Epithelial 0-3 HPF (0-3); Urobilinogen Normal mg/dL (Less than 2); WBC/HPF 0-3 HPF (0-3); pH, Urine 7.5 (5.0-9.0)
[2023-04-16 15:17] LABS: Urine Culture Reflex No No
[2023-04-16] MEDS: Dronabinol 2.5 MG CAP PO SCH ×2 (15:50→21:38)
[2023-04-16] MEDS ORDERED: Loperamide HCl 2 MG CAP PO PRN (17:34)
[2023-04-16] MEDS ORDERED: Guaifenesin DM 100-10/5 ML UDCUP PO PRN (17:34)
[2023-04-16] MEDS ORDERED: Acetaminophen 650 MG Suppository PR PRN (17:34)
[2023-04-16] MEDS: Promethazine HCl 25 MG/ML VIAL IM PRN ×2 (17:46→22:05)
[2023-04-16] MEDS: Lactated Ringer's 1,000 ML IV SCH (17:59)
[2023-04-16] MEDS: oxyCODONE 5 MG TAB PO SCH (18:07)
[2023-04-16] MEDS: Amitriptyline HCl 25 MG TAB PO SCH (22:03)
[2023-04-16] MEDS: Gabapentin 300 MG CAP PO SCH (22:03)
[2023-04-16] MEDS: DULoxetine 20 MG CAP PO SCH (22:03)
[2023-04-16] MEDS: Tamsulosin HCl 0.4 MG CAP PO SCH (22:05)
[2023-04-17] MEDS: Sacubitril 24MG/Valsartan 26 MG TAB PO SCH ×3 (00:10→22:18)
[2023-04-17] MEDS: oxyCODONE 5 MG TAB PO SCH ×4 (00:11→17:07)
[2023-04-17 04:44] LABS: #Eosinphils 0.2 thou/uL (0.0-0.7); #Monocytes 0.2 thou/uL (0.11-0.59); #Neutrophils 1.8 thou/uL (1.40-6.50); %Basophils 0.3 % (0.0-1.0); %Eosinophils 4.6 % (0.0-10.0); %Lymphocytes 43.6 % (21.0-51.0); %Monocytes 4.6 % (0.0-10.0); %Neutrophils 46.6 % (42.0-75.0); Hemoglobin 9.5 g/dL (14.0-18.0); Mean Corpuscular HGB CONC 34.3 g/dL (32.0-36.0); Mean Corpuscular Hemoglobin 31.9 pg (27.0-31.0); Mean Platelet Volume 10.8 fL (7.4-10.4); Platelet Count 162 10x3/uL (130-400); Red Blood Cell (RBC) Count 2.98 mill/uL (4.70-6.10); White Blood Cell (WBC) Count 3.9 10x3/uL (4.8-10.8)
[2023-04-17 05:07] LABS: Anion Gap 10 mmol/L (10-20); BUN (Urea Nitrogen) 15 mg/dL (8.9-20.6); Calc. Creatinine Clearance 145 mL/min (70-130); Calcium 8.7 mg/dL (7.8-10.44); Carbon Dioxide 28 mmol/L (22-29); Chloride 100 mmol/L (98-107); Estimated GFR 100; Glucose 90 mg/dL (70-105); Potassium 3.6 mmol/L (3.5-5.1); Sodium 134 mmol/L (136-145)
[2023-04-17] MEDS ORDERED: DULoxetine 20 MG CAP PO SCH (09:00)
[2023-04-17] MEDS: Dronabinol 2.5 MG CAP PO SCH ×3 (10:06→22:47)
[2023-04-17] MEDS: Naloxegol 12.5 MG TAB PO SCH (10:06)
[2023-04-17] MEDS: Lactated Ringer's 1,000 ML IV SCH ×2 (10:06→22:17)
[2023-04-17] MEDS: Gabapentin 300 MG CAP PO SCH ×2 (10:07→22:18)
[2023-04-17] MEDS: DULoxetine 20 MG CAP PO SCH ×2 (10:07→22:18)
[2023-04-17] MEDS: Promethazine HCl 25 MG/ML VIAL IM PRN ×2 (12:52→21:07)
[2023-04-17] MEDS ORDERED: Dexamethasone 4 mg/ml Vial SLOW IVP SCH (17:15)
[2023-04-17] MEDS: Amitriptyline HCl 25 MG TAB PO SCH (22:17)
[2023-04-17] MEDS: Tamsulosin HCl 0.4 MG CAP PO SCH (22:18)
[2023-04-18] MEDS: oxyCODONE 5 MG TAB PO SCH ×4 (00:04→18:01)
[2023-04-18] MEDS: Ondansetron PF 4 MG/2 ML Vial IVP PRN (04:45)
[2023-04-18] MEDS: DULoxetine 20 MG CAP PO SCH ×2 (09:36→21:23)
[2023-04-18] MEDS: Naloxegol 12.5 MG TAB PO SCH (09:36)
[2023-04-18] MEDS: Gabapentin 300 MG CAP PO SCH ×2 (09:37→21:23)
[2023-04-18] MEDS: Sacubitril 24MG/Valsartan 26 MG TAB PO SCH ×2 (09:37→21:24)
[2023-04-18] MEDS: Lactated Ringer's 1,000 ML IV SCH (09:38)
[2023-04-18] MEDS: Dronabinol 2.5 MG CAP PO SCH ×3 (09:38→21:34)
[2023-04-18] MEDS: Promethazine HCl 25 MG/ML VIAL IM PRN ×2 (14:27→21:35)
[2023-04-18] MEDS: Hydrocortisone 10 mg Tablet PO SCH ×2 (14:28→21:22)
[2023-04-18] MEDS: Amitriptyline HCl 25 MG TAB PO SCH (21:23)
[2023-04-18] MEDS: Tamsulosin HCl 0.4 MG CAP PO SCH (21:23)
[2023-04-18] MEDS ORDERED: D15W-AA 5% with Lytes 2,000 ML IV SCH (23:59)
[2023-04-19] MEDS: oxyCODONE 5 MG TAB PO SCH ×4 (00:13→17:56)
[2023-04-19] MEDS: Hydrocortisone 10 mg Tablet PO SCH ×2 (02:54→10:29)
[2023-04-19] MEDS: Acetaminophen 325 MG TAB PO PRN (02:54)
[2023-04-19] MEDS: Lactated Ringer's 1,000 ML IV SCH ×2 (04:14→14:15)
[2023-04-19 04:19] LABS: #Monocytes 0.2 thou/uL (0.11-0.59); %Lymphocytes 15.5 % (21.0-51.0); %Neutrophils 80.3 % (42.0-75.0); Hemoglobin 9.4 g/dL (14.0-18.0); Mean Corpuscular HGB CONC 34.2 g/dL (32.0-36.0); Mean Corpuscular Volume 93.5 fl (78.0-98.0); Mean Platelet Volume 10.9 fL (7.4-10.4); Platelet Count 158 10x3/uL (130-400); RBC Distribution Width 16.3 % (11.5-14.5); Red Blood Cell (RBC) Count 2.94 mill/uL (4.70-6.10)
[2023-04-19 04:43] LABS: Anion Gap 13 mmol/L (10-20); BUN (Urea Nitrogen) 13 mg/dL (8.9-20.6); Calc. Creatinine Clearance 136 mL/min (70-130); Calcium 8.9 mg/dL (7.8-10.44); Carbon Dioxide 27 mmol/L (22-29); Chloride 97 mmol/L (98-107); Estimated GFR 93; Glucose 140 mg/dL (70-105); Potassium 3.9 mmol/L (3.5-5.1); Sodium 133 mmol/L (136-145)
[2023-04-19] MEDS: Naloxegol 12.5 MG TAB PO SCH (06:59)
[2023-04-19] MEDS: Sacubitril 24MG/Valsartan 26 MG TAB PO SCH ×2 (10:29→22:42)
[2023-04-19] MEDS: DULoxetine 20 MG CAP PO SCH ×2 (10:29→22:43)
[2023-04-19] MEDS: Gabapentin 300 MG CAP PO SCH ×2 (10:30→22:44)
[2023-04-19] MEDS: Dronabinol 2.5 MG CAP PO SCH ×3 (10:32→22:43)
[2023-04-19] MEDS: Multivitamins, Adult 10 ML, MULTITRACE-4 CONC VIAL 1 ML in D15W-AA 5% with Lytes 2,000 ML IV SCH (13:53)
[2023-04-19] MEDS: Promethazine HCl 25 MG/ML VIAL IM PRN (19:10)
[2023-04-19] MEDS ORDERED: Hydrocortisone 10 mg Tablet PO SCH (20:00)
[2023-04-19] MEDS: Tamsulosin HCl 0.4 MG CAP PO SCH (22:43)
[2023-04-19] MEDS: Amitriptyline HCl 25 MG TAB PO SCH (22:44)
[2023-04-20] MEDS: oxyCODONE 5 MG TAB PO SCH ×3 (00:46→12:34)
[2023-04-20] MEDS: Lactated Ringer's 1,000 ML IV SCH ×2 (05:03→19:16)
[2023-04-20 05:45] LABS: #Monocytes 0.3 thou/uL (0.11-0.59); #Neutrophils 6.4 thou/uL (1.40-6.50); %Eosinophils 0.1 % (0.0-10.0); %Lymphocytes 14.8 % (21.0-51.0); %Monocytes 3.4 % (0.0-10.0); %Neutrophils 81.4 % (42.0-75.0); Hemoglobin 10.5 g/dL (14.0-18.0); Mean Corpuscular HGB CONC 33.5 g/dL (32.0-36.0); Mean Corpuscular Hemoglobin 31.3 pg (27.0-31.0); Mean Corpuscular Volume 93.2 fl (78.0-98.0); Mean Platelet Volume 11.2 fL (7.4-10.4); Platelet Count 187 10x3/uL (130-400); RBC Distribution Width 16.1 % (11.5-14.5); Red Blood Cell (RBC) Count 3.36 mill/uL (4.70-6.10); White Blood Cell (WBC) Count 7.9 10x3/uL (4.8-10.8)
[2023-04-20 06:07] LABS: Anion Gap 18 mmol/L (10-20); BUN (Urea Nitrogen) 14 mg/dL (8.9-20.6); Calc. Creatinine Clearance 149 mL/min (70-130); Calcium 8.9 mg/dL (7.8-10.44); Carbon Dioxide 21 mmol/L (22-29); Chloride 101 mmol/L (98-107); Estimated GFR 104; Glucose 133 mg/dL (70-105); Potassium 3.6 mmol/L (3.5-5.1); Sodium 136 mmol/L (136-145)
[2023-04-20] MEDS: Naloxegol 12.5 MG TAB PO SCH (06:56)
[2023-04-20] MEDS ORDERED: Hydrocortisone 10 mg Tablet PO SCH (08:00)
[2023-04-20] MEDS: Gabapentin 300 MG CAP PO SCH ×2 (11:12→20:25)
[2023-04-20] MEDS: Sacubitril 24MG/Valsartan 26 MG TAB PO SCH ×2 (11:12→20:24)
[2023-04-20] MEDS: DULoxetine 20 MG CAP PO SCH ×2 (11:12→20:25)
[2023-04-20] MEDS: Ondansetron PF 4 MG/2 ML Vial IVP PRN (11:12)
[2023-04-20] MEDS: Dronabinol 2.5 MG CAP PO SCH ×3 (11:12→20:25)
[2023-04-20] MEDS: Promethazine HCl 25 MG/ML VIAL IM PRN ×2 (12:28→21:37)
[2023-04-20] MEDS ORDERED: Bisacodyl 10 MG SUPP PR PRN (13:48)
[2023-04-20] MEDS ORDERED: Polyethylene Glycol 3350 17 GM Packet PO PRN (13:48)
[2023-04-20] MEDS: Multivitamins, Adult 10 ML, MULTITRACE-4 CONC VIAL 1 ML in D15W-AA 5% with Lytes 2,000 ML IV SCH (15:04)
[2023-04-20] MEDS: Amitriptyline HCl 25 MG TAB PO SCH (20:25)
[2023-04-20] MEDS: Tamsulosin HCl 0.4 MG CAP PO SCH (20:25)
[2023-04-20] MEDS: oxyCODONE 5 MG TAB PO PRN (20:32)
[2023-04-21 04:15] LABS: #Eosinphils 0.2 thou/uL (0.0-0.7); #Monocytes 0.5 thou/uL (0.11-0.59); #Neutrophils 3.9 thou/uL (1.40-6.50); %Basophils 0.1 % (0.0-1.0); %Eosinophils 2.5 % (0.0-10.0); %Lymphocytes 40.7 % (21.0-51.0); %Monocytes 6.6 % (0.0-10.0); %Neutrophils 49.7 % (42.0-75.0); Hemoglobin 9.3 g/dL (14.0-18.0); Mean Corpuscular HGB CONC 33.7 g/dL (32.0-36.0); Mean Corpuscular Hemoglobin 32.2 pg (27.0-31.0); Mean Corpuscular Volume 95.5 fl (78.0-98.0); Mean Platelet Volume 10.8 fL (7.4-10.4); Platelet Count 146 10x3/uL (130-400); RBC Distribution Width 16.6 % (11.5-14.5); Red Blood Cell (RBC) Count 2.89 mill/uL (4.70-6.10); White Blood Cell (WBC) Count 7.9 10x3/uL (4.8-10.8)
[2023-04-21] MEDS: Lactated Ringer's 1,000 ML IV SCH ×2 (04:35→18:06)
[2023-04-21 04:43] LABS: Anion Gap 10 mmol/L (10-20); BUN (Urea Nitrogen) 16 mg/dL (8.9-20.6); Calc. Creatinine Clearance 138 mL/min (70-130); Calcium 8.6 mg/dL (7.8-10.44); Carbon Dioxide 30 mmol/L (22-29); Chloride 99 mmol/L (98-107); Estimated GFR 89; Glucose 110 mg/dL (70-105); Potassium 3.3 mmol/L (3.5-5.1); Sodium 136 mmol/L (136-145)
[2023-04-21] MEDS ORDERED: Electrolyte Replacement Protocol FS PRN (08:30)
[2023-04-21] MEDS: Promethazine HCl 25 MG/ML VIAL IM PRN ×3 (09:07→22:35)
[2023-04-21] MEDS: Gabapentin 300 MG CAP PO SCH ×2 (09:10→21:20)
[2023-04-21] MEDS: Naloxegol 12.5 MG TAB PO SCH (09:10)
[2023-04-21] MEDS: Hydrocortisone 10 mg Tablet PO SCH ×2 (09:10→21:20)
[2023-04-21] MEDS: Polyethylene Glycol 3350 17 GM Packet PO SCH (09:11)
[2023-04-21] MEDS: DULoxetine 20 MG CAP PO SCH ×2 (09:11→21:20)
[2023-04-21] MEDS: Sacubitril 24MG/Valsartan 26 MG TAB PO SCH (09:14)
[2023-04-21] MEDS: Dronabinol 2.5 MG CAP PO SCH ×3 (09:15→21:20)
[2023-04-21] MEDS: oxyCODONE 5 MG TAB PO PRN ×3 (09:18→22:34)
[2023-04-21] MEDS: Potassium Chloride 20 MEQ in Premix Bag 1 BAG IVPB SCH ×2 (09:20→11:35)
[2023-04-21] MEDS ORDERED: Lactated Ringer's 500 ML IV SCH (13:00)
[2023-04-21] MEDS: MULTITRACE IV SCH (13:58)
[2023-04-21] MEDS: MULTIVITAMINS IV SCH (13:58)
[2023-04-21] MEDS: FAT EMULSION IV SCH (13:58)
[2023-04-21] MEDS: [UNRECOGNIZED DRUG - OTHER] IV SCH (13:58)
[2023-04-21] MEDS: Amitriptyline HCl 25 MG TAB PO SCH (21:20)
[2023-04-21] MEDS: Tamsulosin HCl 0.4 MG CAP PO SCH (21:20)
[2023-04-21] MEDS: Metoprolol Tartrate 25 MG TAB PO SCH (21:20)
[2023-04-22 04:45] LABS: #Eosinphils 0.4 thou/uL (0.0-0.7); #Monocytes 0.8 thou/uL (0.11-0.59); #Neutrophils 4.4 thou/uL (1.40-6.50); %Basophils 0.2 % (0.0-1.0); %Lymphocytes 32.4 % (21.0-51.0); %Neutrophils 52.7 % (42.0-75.0); Mean Corpuscular HGB CONC 33.1 g/dL (32.0-36.0); Mean Corpuscular Hemoglobin 32.2 pg (27.0-31.0); Mean Corpuscular Volume 97.1 fl (78.0-98.0); Mean Platelet Volume 10.6 fL (7.4-10.4); Platelet Count 168 10x3/uL (130-400); RBC Distribution Width 17.2 % (11.5-14.5); Red Blood Cell (RBC) Count 3.11 mill/uL (4.70-6.10); White Blood Cell (WBC) Count 8.4 10x3/uL (4.8-10.8)
[2023-04-22] MEDS: oxyCODONE 5 MG TAB PO PRN ×3 (04:56→21:27)
[2023-04-22] MEDS: Promethazine HCl 25 MG/ML VIAL IM PRN ×3 (04:56→21:02)
[2023-04-22] MEDS: Lactated Ringer's 1,000 ML IV SCH (05:03)
[2023-04-22 05:09] LABS: Anion Gap 12 mmol/L (10-20); BUN (Urea Nitrogen) 14 mg/dL (8.9-20.6); Calc. Creatinine Clearance 133 mL/min (70-130); Calcium 8.8 mg/dL (7.8-10.44); Carbon Dioxide 28 mmol/L (22-29); Chloride 100 mmol/L (98-107); Estimated GFR 85; Glucose 97 mg/dL (70-105); Potassium 3.5 mmol/L (3.5-5.1); Sodium 136 mmol/L (136-145)
[2023-04-22] MEDS: Naloxegol 12.5 MG TAB PO SCH (08:41)
[2023-04-22] MEDS: Potassium Chloride 20 MEQ in Premix Bag 1 BAG IVPB SCH ×2 (08:41→10:53)
[2023-04-22] MEDS: Polyethylene Glycol 3350 17 GM Packet PO SCH (08:42)
[2023-04-22] MEDS: Gabapentin 300 MG CAP PO SCH ×2 (08:42→21:03)
[2023-04-22] MEDS: DULoxetine 20 MG CAP PO SCH ×2 (08:43→21:04)
[2023-04-22] MEDS: Hydrocortisone 10 mg Tablet PO SCH ×2 (08:43→21:05)
[2023-04-22] MEDS: Dronabinol 2.5 MG CAP PO SCH ×3 (08:44→23:20)
[2023-04-22] MEDS: Metoprolol Tartrate 25 MG TAB PO SCH ×2 (08:44→21:04)
[2023-04-22] MEDS: Multivitamins, Adult 10 ML, MULTITRACE-4 CONC VIAL 1 ML in D15W-AA 5% with Lytes 2,000 ML IV SCH ×2 (14:59→15:14)
[2023-04-22] MEDS: Acetaminophen 325 MG TAB PO PRN (15:04)
[2023-04-22] MEDS ORDERED: Furosemide 20 MG/2 ML VIAL SLOW IVP SCH (15:15)
[2023-04-22] MEDS: Amitriptyline HCl 25 MG TAB PO SCH (21:03)
[2023-04-22] MEDS: Tamsulosin HCl 0.4 MG CAP PO SCH (21:05)
[2023-04-23 05:23] LABS: #Eosinphils 0.5 thou/uL (0.0-0.7); #Monocytes 1.4 thou/uL (0.11-0.59); #Neutrophils 4.9 thou/uL (1.40-6.50); %Basophils 0.2 % (0.0-1.0); %Eosinophils 5.1 % (0.0-10.0); %Lymphocytes 27.3 % (21.0-51.0); %Monocytes 14.7 % (0.0-10.0); %Neutrophils 51.4 % (42.0-75.0); Hemoglobin 10.2 g/dL (14.0-18.0); Mean Corpuscular HGB CONC 33.3 g/dL (32.0-36.0); Mean Corpuscular Hemoglobin 32.5 pg (27.0-31.0); Mean Corpuscular Volume 97.5 fl (78.0-98.0); Platelet Count 179 10x3/uL (130-400); RBC Distribution Width 17.8 % (11.5-14.5); Red Blood Cell (RBC) Count 3.14 mill/uL (4.70-6.10); White Blood Cell (WBC) Count 9.6 10x3/uL (4.8-10.8)
[2023-04-23 05:45] LABS: Anion Gap 11 mmol/L (10-20); BUN (Urea Nitrogen) 15 mg/dL (8.9-20.6); Calc. Creatinine Clearance 120 mL/min (70-130); Calcium 8.8 mg/dL (7.8-10.44); Carbon Dioxide 29 mmol/L (22-29); Chloride 101 mmol/L (98-107); Estimated GFR 73; Glucose 93 mg/dL (70-105); Potassium 3.6 mmol/L (3.5-5.1); Sodium 137 mmol/L (136-145)
[2023-04-23] MEDS: Furosemide 20 MG/2 ML VIAL SLOW IVP SCH ×2 (06:01→06:15)
[2023-04-23] MEDS: oxyCODONE 5 MG TAB PO PRN ×3 (06:17→21:37)
[2023-04-23] MEDS: Promethazine HCl 25 MG/ML VIAL IM PRN ×3 (09:39→21:41)
[2023-04-23] MEDS: Dronabinol 2.5 MG CAP PO SCH ×3 (09:39→21:44)
[2023-04-23] MEDS: Hydrocortisone 10 mg Tablet PO SCH ×2 (09:40→21:37)
[2023-04-23] MEDS: Gabapentin 300 MG CAP PO SCH ×2 (09:40→21:37)
[2023-04-23] MEDS: Polyethylene Glycol 3350 17 GM Packet PO SCH (09:40)
[2023-04-23] MEDS: Naloxegol 12.5 MG TAB PO SCH (09:40)
[2023-04-23] MEDS: Metoprolol Tartrate 25 MG TAB PO SCH ×2 (09:41→21:37)
[2023-04-23] MEDS: DULoxetine 20 MG CAP PO SCH ×2 (09:41→21:38)
[2023-04-23] MEDS ORDERED: Spironolactone 25 MG TAB PO SCH (09:45)
[2023-04-23] MEDS: Amitriptyline HCl 25 MG TAB PO SCH (21:38)
[2023-04-23] MEDS: Tamsulosin HCl 0.4 MG CAP PO SCH (21:38)
[2023-04-24 04:51] LABS: Hemoglobin 8.2 g/dL (14.0-18.0); Manual Diff?? YES; Mean Corpuscular HGB CONC 32.8 g/dL (32.0-36.0); Mean Corpuscular Hemoglobin 32.5 pg (27.0-31.0); Mean Corpuscular Volume 99.2 fl (78.0-98.0); Mean Platelet Volume 10.9 fL (7.4-10.4); Platelet Count 141 10x3/uL (130-400); RBC Distribution Width 18.4 % (11.5-14.5); Red Blood Cell (RBC) Count 2.52 mill/uL (4.70-6.10); White Blood Cell (WBC) Count 6.6 10x3/uL (4.8-10.8)
[2023-04-24 05:16] LABS: Anion Gap 11 mmol/L (10-20); BUN (Urea Nitrogen) 15 mg/dL (8.9-20.6); Calc. Creatinine Clearance 126 mL/min (70-130); Calcium 8.3 mg/dL (7.8-10.44); Carbon Dioxide 30 mmol/L (22-29); Chloride 102 mmol/L (98-107); Estimated GFR 77; Glucose 90 mg/dL (70-105); Potassium 4.1 mmol/L (3.5-5.1); Sodium 139 mmol/L (136-145)
[2023-04-24 05:19] LABS: Delete Auto Diff?? YES
[2023-04-24] MEDS: oxyCODONE 5 MG TAB PO PRN ×3 (05:43→18:24)
[2023-04-24] MEDS: Promethazine HCl 25 MG/ML VIAL IM PRN ×2 (05:45→16:18)
[2023-04-24 05:53] LABS: Anisocytosis SLIGHT = 6-15 cells HPF (0-5); CellaVision Operator ID LAB.JMM; Eosinophils 5 % (0-10); Large Platelets 0.9 % (0-5); Lymphocytes 25 % (21-51); Macrocytosis SLIGHT = 6-15 cells HPF (0-5); Metamyelocyte 6 % (0-0); Monocytes 10 % (0-10); Myelocyte 1 % (0-0); Neutrophil 54 % (42-75); Platelet Adequacy Comment Platelets Normal; Polychromasia SLIGHT = 2-3 cells HPF (0-2); Smudge Cells 3.7 %; Total Cell Count 108
[2023-04-24] MEDS ORDERED: Iopamidol-370 76% 500 ML MDV (1 ML CHARGE) ONE (09:11)
[2023-04-24] MEDS: Naloxegol 12.5 MG TAB PO SCH (09:49)
[2023-04-24] MEDS: Polyethylene Glycol 3350 17 GM Packet PO SCH (09:49)
[2023-04-24] MEDS: Hydrocortisone 10 mg Tablet PO SCH ×2 (09:49→21:29)
[2023-04-24] MEDS: Spironolactone 25 MG TAB PO SCH (09:50)
[2023-04-24] MEDS: Gabapentin 300 MG CAP PO SCH ×2 (09:51→21:28)
[2023-04-24] MEDS: Metoprolol Tartrate 25 MG TAB PO SCH ×2 (09:51→21:28)
[2023-04-24] MEDS: DULoxetine 20 MG CAP PO SCH ×2 (09:55→21:29)
[2023-04-24] MEDS: Dronabinol 2.5 MG CAP PO SCH ×3 (11:39→21:28)
[2023-04-24 12:24] LABS: #Eosinphils 0.3 thou/uL (0.0-0.7); Mean Corpuscular HGB CONC 33.1 g/dL (32.0-36.0); RBC Distribution Width 18.3 % (11.5-14.5)
[2023-04-24 14:27] LABS: #Monocytes 1.2 thou/uL (0.11-0.59); #Neutrophils 3.1 thou/uL (1.40-6.50); %Basophils 0.3 % (0.0-1.0); %Lymphocytes 23.6 % (21.0-51.0); %Monocytes 19.7 % (0.0-10.0); %Neutrophils 50.7 % (42.0-75.0); Mean Corpuscular Hemoglobin 32.5 pg (27.0-31.0); Mean Corpuscular Volume 98.2 fl (78.0-98.0); Platelet Count 161 10x3/uL (130-400); Red Blood Cell (RBC) Count 2.77 mill/uL (4.70-6.10); White Blood Cell (WBC) Count 6.1 10x3/uL (4.8-10.8)
[2023-04-24] MEDS: MULTIVITAMINS IV SCH (14:51)
[2023-04-24] MEDS: MULTITRACE IV SCH (14:51)
[2023-04-24] MEDS: [UNRECOGNIZED DRUG - OTHER] IV SCH (14:51)
[2023-04-24] MEDS: FAT EMULSION IV SCH (14:51)
[2023-04-24 15:09] LABS: Phosphorus 4.6 mg/dL (2.3-4.7)
[2023-04-24] MEDS: Multivitamins, Adult 10 ML, MULTITRACE-4 CONC VIAL 1 ML in D15W-AA 5% with Lytes 2,000 ML IV SCH (16:19)
[2023-04-24] MEDS ORDERED: Communication Order-Pharmacy FS PRN (16:28)
[2023-04-24 16:57] LABS: Hemoglobin 9.1 g/dL (14.0-18.0); Platelet Count 147 10x3/uL (130-400)
[2023-04-24] MEDS: Tamsulosin HCl 0.4 MG CAP PO SCH (21:28)
[2023-04-24] MEDS: Amitriptyline HCl 25 MG TAB PO SCH (21:29)
[2023-04-25] MEDS: oxyCODONE 5 MG TAB PO PRN ×4 (00:49→21:03)
[2023-04-25] MEDS: Promethazine HCl 25 MG/ML VIAL IM PRN ×3 (00:50→21:06)
[2023-04-25] MEDS ORDERED: Cyclobenzaprine 10 MG TAB PO SCH (02:15)
[2023-04-25 04:38] LABS: #Eosinphils 0.3 thou/uL (0.0-0.7); #Monocytes 1.3 thou/uL (0.11-0.59); #Neutrophils 2.7 thou/uL (1.40-6.50); %Basophils 0.2 % (0.0-1.0); %Eosinophils 5.1 % (0.0-10.0); %Monocytes 21.7 % (0.0-10.0); %Neutrophils 44.5 % (42.0-75.0); Hemoglobin 8.1 g/dL (14.0-18.0); Mean Corpuscular HGB CONC 32.9 g/dL (32.0-36.0); Mean Corpuscular Hemoglobin 32.8 pg (27.0-31.0); Mean Corpuscular Volume 99.6 fl (78.0-98.0); Mean Platelet Volume 10.8 fL (7.4-10.4); RBC Distribution Width 17.9 % (11.5-14.5); Red Blood Cell (RBC) Count 2.47 mill/uL (4.70-6.10); White Blood Cell (WBC) Count 6.1 10x3/uL (4.8-10.8)
[2023-04-25 04:43] LABS: Platelet Count 147 10x3/uL (130-400)
[2023-04-25 04:58] LABS: Anion Gap 9 mmol/L (10-20); BUN (Urea Nitrogen) 14 mg/dL (8.9-20.6); Calc. Creatinine Clearance 150 mL/min (70-130); Calcium 8.1 mg/dL (7.8-10.44); Carbon Dioxide 30 mmol/L (22-29); Chloride 103 mmol/L (98-107); Estimated GFR 92; Glucose 105 mg/dL (70-105); Sodium 138 mmol/L (136-145)
[2023-04-25] MEDS ORDERED: Magnesium 2 GM/50 ML(in water) 2 GM in Premix Bag 1 BAG IVPB SCH (08:00)
[2023-04-25] MEDS: Naloxegol 12.5 MG TAB PO SCH (08:55)
[2023-04-25] MEDS: Dronabinol 2.5 MG CAP PO SCH ×3 (08:55→20:57)
[2023-04-25] MEDS: Hydrocortisone 10 mg Tablet PO SCH ×2 (08:56→20:57)
[2023-04-25] MEDS: DULoxetine 20 MG CAP PO SCH ×2 (08:57→20:55)
[2023-04-25] MEDS: Polyethylene Glycol 3350 17 GM Packet PO SCH (08:57)
[2023-04-25] MEDS: Gabapentin 300 MG CAP PO SCH ×2 (08:57→20:55)
[2023-04-25] MEDS: Spironolactone 25 MG TAB PO SCH (08:57)
[2023-04-25] MEDS: Metoprolol Tartrate 25 MG TAB PO SCH ×2 (08:57→20:57)
[2023-04-25 09:40] VITALS: BMI 33.1
[2023-04-25] MEDS ORDERED: Metoprolol Tartrate 5 MG/5 ML VIAL IVP PRN (10:53)
[2023-04-25] MEDS: FAT EMULSION IV SCH (14:47)
[2023-04-25] MEDS: MULTITRACE IV SCH (14:47)
[2023-04-25] MEDS: MULTIVITAMINS IV SCH (14:47)
[2023-04-25] MEDS: [UNRECOGNIZED DRUG - OTHER] IV SCH (14:47)
[2023-04-25] MEDS: Amitriptyline HCl 25 MG TAB PO SCH (20:55)
[2023-04-25] MEDS: Tamsulosin HCl 0.4 MG CAP PO SCH (20:55)
[2023-04-26] MEDS: oxyCODONE 5 MG TAB PO PRN ×4 (03:41→23:31)
[2023-04-26] MEDS: Promethazine HCl 25 MG/ML VIAL IM PRN ×3 (04:20→16:35)
[2023-04-26 04:31] LABS: Hemoglobin 9.5 g/dL (14.0-18.0); Manual Diff?? YES; Mean Corpuscular HGB CONC 32.5 g/dL (32.0-36.0); Mean Corpuscular Hemoglobin 32.1 pg (27.0-31.0); Mean Corpuscular Volume 98.6 fl (78.0-98.0); Mean Platelet Volume 10.8 fL (7.4-10.4); Platelet Count 170 10x3/uL (130-400); RBC Distribution Width 17.7 % (11.5-14.5); Red Blood Cell (RBC) Count 2.96 mill/uL (4.70-6.10); White Blood Cell (WBC) Count 6.3 10x3/uL (4.8-10.8)
[2023-04-26 04:39] LABS: Delete Auto Diff?? YES
[2023-04-26 04:58] LABS: Anisocytosis MARKED = >30 cells HPF (0-5); Band 1 % (5-11); CellaVision Operator ID LAB.CLH1; Eosinophils 9 % (0-10); Hypochromia SLIGHT = 6-15 cells HPF (0-5); Lymphocytes 22 % (21-51); Macrocytosis MODERATE=16-30 cells HPF (0-5); Monocytes 19 % (0-10); Neutrophil 46 % (42-75); Platelet Adequacy Comment Platelets Normal; Polychromasia SLIGHT = 2-3 cells HPF (0-2); Reactive Lymphocytes 2 % (0-10); Total Cell Count 100
[2023-04-26 05:01] LABS: Anion Gap 9 mmol/L (10-20); BUN (Urea Nitrogen) 14 mg/dL (8.9-20.6); Calc. Creatinine Clearance 155 mL/min (70-130); Calcium 8.7 mg/dL (7.8-10.44); Carbon Dioxide 31 mmol/L (22-29); Chloride 101 mmol/L (98-107); Estimated GFR 95; Glucose 91 mg/dL (70-105); Sodium 137 mmol/L (136-145)
[2023-04-26] MEDS: Spironolactone 25 MG TAB PO SCH (09:17)
[2023-04-26] MEDS: Hydrocortisone 10 mg Tablet PO SCH ×2 (09:17→23:31)
[2023-04-26] MEDS: Polyethylene Glycol 3350 17 GM Packet PO SCH (09:17)
[2023-04-26] MEDS: Gabapentin 300 MG CAP PO SCH ×2 (09:18→23:30)
[2023-04-26] MEDS: DULoxetine 20 MG CAP PO SCH ×2 (09:18→23:30)
[2023-04-26] MEDS: Naloxegol 12.5 MG TAB PO SCH (09:18)
[2023-04-26] MEDS: Metoprolol Tartrate 25 MG TAB PO SCH ×2 (09:18→23:31)
[2023-04-26] MEDS ORDERED: Furosemide 20 MG/2 ML VIAL SLOW IVP SCH (09:30)
[2023-04-26] MEDS: Dronabinol 2.5 MG CAP PO SCH ×3 (10:16→23:30)
[2023-04-26] MEDS: Furosemide 20 MG/2 ML VIAL SLOW IVP SCH (14:59)
[2023-04-26] MEDS: Multivitamins, Adult 10 ML, MULTITRACE-4 CONC VIAL 1 ML in D15W-AA 5% with Lytes 2,000 ML IV SCH (14:59)
[2023-04-26] MEDS: Mag-Al Plus 1200 MG/1200 MG/120 MG/30 ML UDCUP PO PRN (17:38)
[2023-04-26] MEDS: Promethazine HCl 12.5 MG in Sodium Chloride 0.9% 50 ML IVPB PRN (23:03)
[2023-04-26] MEDS: Amitriptyline HCl 25 MG TAB PO SCH (23:30)
[2023-04-26] MEDS: Tamsulosin HCl 0.4 MG CAP PO SCH (23:31)
[2023-04-27 05:12] LABS: #Eosinphils 0.3 thou/uL (0.0-0.7); #Monocytes 1.3 thou/uL (0.11-0.59); #Neutrophils 2.4 thou/uL (1.40-6.50); %Basophils 0.3 % (0.0-1.0); %Eosinophils 4.6 % (0.0-10.0); %Lymphocytes 31.3 % (21.0-51.0); %Monocytes 22.4 % (0.0-10.0); %Neutrophils 41.1 % (42.0-75.0); Hemoglobin 8.8 g/dL (14.0-18.0); Manual Diff?? YES; Mean Corpuscular HGB CONC 32.8 g/dL (32.0-36.0); Mean Corpuscular Hemoglobin 31.8 pg (27.0-31.0); Mean Corpuscular Volume 96.8 fl (78.0-98.0); Mean Platelet Volume 10.5 fL (7.4-10.4); Platelet Count 186 10x3/uL (130-400); RBC Distribution Width 16.9 % (11.5-14.5); Red Blood Cell (RBC) Count 2.77 mill/uL (4.70-6.10); White Blood Cell (WBC) Count 5.8 10x3/uL (4.8-10.8)
[2023-04-27 05:37] LABS: Anion Gap 11 mmol/L (10-20); BUN (Urea Nitrogen) 15 mg/dL (8.9-20.6); Calc. Creatinine Clearance 161 mL/min (70-130); Calcium 8.4 mg/dL (7.8-10.44); Carbon Dioxide 31 mmol/L (22-29); Chloride 100 mmol/L (98-107); Estimated GFR 100; Glucose 100 mg/dL (70-105); Potassium 3.9 mmol/L (3.5-5.1); Sodium 138 mmol/L (136-145)
[2023-04-27 06:08] LABS: Anisocytosis SLIGHT = 6-15 cells HPF (0-5); Band 1 % (5-11); Eosinophils 3 % (0-10); Large Platelets 4.9 % (0-5); Lymphocytes 38 % (21-51); Monocytes 9 % (0-10); Neutrophil 49 % (42-75); Platelet Adequacy Comment Platelets Normal; Total Cell Count 102
[2023-04-27] MEDS ORDERED: PROPOFOL 200 MG/20 ML VIAL ONE (08:21)
[2023-04-27] MEDS: Polyethylene Glycol 3350 17 GM Packet PO SCH (09:17)
[2023-04-27] MEDS: Hydrocortisone 10 mg Tablet PO SCH ×2 (09:17→23:56)
[2023-04-27] MEDS: DULoxetine 20 MG CAP PO SCH ×2 (09:18→23:55)
[2023-04-27] MEDS: Gabapentin 300 MG CAP PO SCH ×2 (09:18→23:55)
[2023-04-27] MEDS: Metoprolol Tartrate 25 MG TAB PO SCH ×2 (09:19→23:58)
[2023-04-27] MEDS: Naloxegol 12.5 MG TAB PO SCH (09:19)
[2023-04-27] MEDS: Furosemide 20 MG/2 ML VIAL SLOW IVP SCH (09:20)
[2023-04-27] MEDS: Spironolactone 25 MG TAB PO SCH (09:22)
[2023-04-27] MEDS: oxyCODONE 5 MG TAB PO PRN ×3 (09:25→23:53)
[2023-04-27] MEDS: Dronabinol 2.5 MG CAP PO SCH ×3 (11:28→23:54)
[2023-04-27] MEDS: Promethazine HCl 12.5 MG in Sodium Chloride 0.9% 50 ML IVPB PRN ×2 (12:36→17:29)
[2023-04-27] MEDS: Multivitamins, Adult 10 ML, MULTITRACE-4 CONC VIAL 1 ML in D15W-AA 5% with Lytes 2,000 ML IV SCH (14:24)
[2023-04-27] MEDS: Mag-Al Plus 1200 MG/1200 MG/120 MG/30 ML UDCUP PO PRN ×2 (17:29→23:53)
[2023-04-27] MEDS: Promethazine HCl 25 MG/ML VIAL IM PRN (22:33)
[2023-04-27] MEDS: Apixaban 5 MG TAB PO SCH (23:54)
[2023-04-27] MEDS: Amitriptyline HCl 25 MG TAB PO SCH (23:56)
[2023-04-27] MEDS: Tamsulosin HCl 0.4 MG CAP PO SCH (23:56)
[2023-04-28 04:55] LABS: #Eosinphils 0.2 thou/uL (0.0-0.7); #Monocytes 2.1 thou/uL (0.11-0.59); #Neutrophils 7.5 thou/uL (1.40-6.50); %Basophils 0.3 % (0.0-1.0); %Eosinophils 1.8 % (0.0-10.0); %Lymphocytes 13.9 % (21.0-51.0); %Monocytes 18.1 % (0.0-10.0); %Neutrophils 65.6 % (42.0-75.0); Hemoglobin 8.8 g/dL (14.0-18.0); Mean Corpuscular HGB CONC 32.6 g/dL (32.0-36.0); Mean Corpuscular Hemoglobin 31.8 pg (27.0-31.0); Mean Corpuscular Volume 97.5 fl (78.0-98.0); Mean Platelet Volume 10.7 fL (7.4-10.4); Platelet Count 206 10x3/uL (130-400); Red Blood Cell (RBC) Count 2.77 mill/uL (4.70-6.10); White Blood Cell (WBC) Count 11.4 10x3/uL (4.8-10.8)
[2023-04-28 05:24] LABS: Anion Gap 13 mmol/L (10-20); BUN (Urea Nitrogen) 18 mg/dL (8.9-20.6); Calc. Creatinine Clearance 152 mL/min (70-130); Calcium 8.3 mg/dL (7.8-10.44); Carbon Dioxide 26 mmol/L (22-29); Chloride 101 mmol/L (98-107); Estimated GFR 99; Glucose 102 mg/dL (70-105); Potassium 3.8 mmol/L (3.5-5.1); Sodium 136 mmol/L (136-145)
[2023-04-28 08:02] LABS: Phosphorus 4.2 mg/dL (2.3-4.7)
[2023-04-28 08:05] LABS: Magnesium 1.9 mg/dL (1.6-2.6)
[2023-04-28] MEDS ORDERED: Magnesium 2 GM/50 ML(in water) 2 GM in Premix Bag 1 BAG IVPB SCH (08:30)
[2023-04-28] MEDS ORDERED: Potassium Chloride 20 MEQ in Premix Bag 1 BAG IVPB SCH (08:30)
[2023-04-28] MEDS: Apixaban 5 MG TAB PO SCH (09:04)
[2023-04-28] MEDS: DULoxetine 20 MG CAP PO SCH (09:04)
[2023-04-28] MEDS: Dronabinol 2.5 MG CAP PO SCH ×2 (09:05→14:33)
[2023-04-28] MEDS: Hydrocortisone 10 mg Tablet PO SCH (09:05)
[2023-04-28] MEDS: Gabapentin 300 MG CAP PO SCH (09:05)
[2023-04-28] MEDS: Metoprolol Tartrate 25 MG TAB PO SCH (09:06)
[2023-04-28] MEDS: Naloxegol 12.5 MG TAB PO SCH (09:06)
[2023-04-28] MEDS: Spironolactone 25 MG TAB PO SCH (09:06)
[2023-04-28] MEDS: Polyethylene Glycol 3350 17 GM Packet PO SCH (09:06)
[2023-04-28] MEDS: oxyCODONE 5 MG TAB PO PRN ×2 (09:10→16:47)
[2023-04-28] MEDS ORDERED: MD-Gastroview 120 ML BOT ONE (10:44)
[2023-04-28] MEDS: Promethazine HCl 25 MG/ML VIAL IM PRN ×2 (11:04→18:05)
[2023-04-28] MEDS: MULTIVITAMINS IV SCH (14:33)
[2023-04-28] MEDS: [UNRECOGNIZED DRUG - OTHER] IV SCH (14:33)
[2023-04-28] MEDS: FAT EMULSION IV SCH (14:33)
[2023-04-28] MEDS: MULTITRACE IV SCH (14:33)
[2023-04-28 16:17] VITALS: BP 114/55; TEMP 97.7
[2023-05-05] MEDS ORDERED: Apixaban 5 MG TAB PO SCH (09:00)
== END 2023-04-28 17:40 | disposition home health service (06) | DRG 391 ==
LOC: ERS 10:35 → 2NO 14:59 → OBSVTOIN 04-17 17:07
PROVIDERS: ADMIT Emergency Medicine; ATTEND Internal Medicine
PROC: 0DJ08ZZ Inspection of Upper Intestinal Tract, Via Natural or Artificial Opening Endoscopic (ICD-10-PCS; principal; 2023-04-27)
DX: K21.00 Gastro-esophageal reflux disease with esophagitis, without bleeding (principal); I26.99 Other pulmonary embolism without acute cor pulmonale; J69.0 Pneumonitis due to inhalation of food and vomit; I50.23 Acute on chronic systolic (congestive) heart failure; J18.9 Pneumonia, unspecified organism; N39.0 Urinary tract infection, site not specified; I42.8 Other cardiomyopathies; I31.39 Other pericardial effusion (noninflammatory); E27.40 Unspecified adrenocortical insufficiency; K56.699 Other intestinal obstruction unspecified as to partial versus complete obstruction; I10 Essential (primary) hypertension; Z96.641 Presence of right artificial hip joint; F41.9 Anxiety disorder, unspecified; F32.A Depression, unspecified; R13.10 Dysphagia, unspecified; E66.01 Morbid (severe) obesity due to excess calories; Z98.84 Bariatric surgery status; Z88.1 Allergy status to other antibiotic agents; Z88.0 Allergy status to penicillin; Z88.2 Allergy status to sulfonamides; Z79.899 Other long term (current) drug therapy; Z95.810 Presence of automatic (implantable) cardiac defibrillator; Z90.49 Acquired absence of other specified parts of digestive tract; Z87.891 Personal history of nicotine dependence; Z68.31 Body mass index [BMI] 31.0-31.9, adult
CPT/HCPCS: 36415; 36416; 70450; 71045; 71275; 74177; 74250; 80048; 80053; 81001; 82533; 82550; 82728; 83605; 83690; 83735; 83880; 84100; 84484; 85025; 87040; 87077; 87086; 87186; 87449; 93005; 93306; 93970; 95712; 95819; 95957; 96361; 96365; 96372; 96375; 96376; C9113; G0378; J1100; J1642; J1650; J1940; J1956; J2270; J2405; J2550; J2704; J3475; J3480; J7120; Q0167; Q9963; Q9967

== ENCOUNTER 2023-06-11 21:40 | Inpatient (IN) | payer MEDICARE, MEDICAID ==
[2023-06-11 22:30] LABS: #Eosinphils 0.1 thou/uL (0.0-0.7); #Monocytes 0.4 thou/uL (0.11-0.59); #Neutrophils 2.5 thou/uL (1.40-6.50); %Basophils 0.5 % (0.0-1.0); %Eosinophils 1.3 % (0.0-10.0); %Lymphocytes 22.9 % (21.0-51.0); Hematocrit 31.7 % (42.0-52.0); Hemoglobin 10.7 g/dL (14.0-18.0); Mean Corpuscular HGB CONC 33.8 g/dL (32.0-36.0); Mean Corpuscular Hemoglobin 32.3 pg (27.0-31.0); Mean Corpuscular Volume 95.8 fl (78.0-98.0); Mean Platelet Volume 10.2 fL (7.4-10.4); Platelet Count 201 10x3/uL (130-400); Red Blood Cell (RBC) Count 3.31 mill/uL (4.70-6.10); White Blood Cell (WBC) Count 3.9 10x3/uL (4.8-10.8)
[2023-06-11 22:43] LABS: INR-International Normal Ratio 1.3; Prothrombin Time 16.6 sec (12.0-14.7)
[2023-06-11 22:52] LABS: ALT (SGPT) 7 U/L (8-55); AST (SGOT) 10 U/L (5-34); Albumin 3.3 g/dL (3.5-5.0); Alkaline Phosphatase 69 U/L (40-110); Anion Gap 6 mmol/L (10-20); BUN (Urea Nitrogen) 13 mg/dL (8.9-20.6); Bilirubin, Total 0.6 mg/dL (0.2-1.2); Calc. Creatinine Clearance 0 mL/min (70-130); Calcium 8.8 mg/dL (7.8-10.44); Carbon Dioxide 23 mmol/L (22-29); Chloride 106 mmol/L (98-107); Estimated GFR 110; Globulin 2.8 g/dL (2.4-3.5); Glucose 100 mg/dL (70-105); Potassium 3.3 mmol/L (3.5-5.1); Protein, Total 6.1 g/dL (6.0-8.3); Sodium 132 mmol/L (136-145)
[2023-06-11 22:55] LABS: Troponin I Less than 0.010 ng/mL (< 0.028)
[2023-06-11] MEDS ORDERED: LevoFLOXacin 750 mg/D5W 150 ml Premix Bag ONE (23:21)
[2023-06-12] MEDS ORDERED: Calcium Carbonate 500 MG ChewTAB PO PRN (01:17)
[2023-06-12] MEDS ORDERED: Acetaminophen 325 MG TAB PO PRN (01:17)
[2023-06-12] MEDS ORDERED: Ondansetron ODT 4 MG TAB PO PRN (01:17)
[2023-06-12] MEDS ORDERED: Ipratropium/Albuterol 3 ML NEB NEB PRN (01:28)
[2023-06-12] MEDS ORDERED: Electrolyte Replacement Protocol 1 EACH FS SCH (01:33)
[2023-06-12 02:54] VITALS: BMI 29.2
[2023-06-12 06:16] LABS: #Eosinphils 0.2 thou/uL (0.0-0.7); #Monocytes 0.4 thou/uL (0.11-0.59); #Neutrophils 1.8 thou/uL (1.40-6.50); %Basophils 0.5 % (0.0-1.0); %Lymphocytes 36.7 % (21.0-51.0); %Monocytes 10.7 % (0.0-10.0); %Neutrophils 48.1 % (42.0-75.0); Hematocrit 32.2 % (42.0-52.0); Hemoglobin 10.7 g/dL (14.0-18.0); Mean Corpuscular HGB CONC 33.2 g/dL (32.0-36.0); Mean Corpuscular Hemoglobin 31.8 pg (27.0-31.0); Mean Corpuscular Volume 95.8 fl (78.0-98.0); Mean Platelet Volume 9.9 fL (7.4-10.4); Platelet Count 192 10x3/uL (130-400); RBC Distribution Width 14.7 % (11.5-14.5); Red Blood Cell (RBC) Count 3.36 mill/uL (4.70-6.10); White Blood Cell (WBC) Count 3.7 10x3/uL (4.8-10.8)
[2023-06-12 06:46] LABS: Anion Gap 12 mmol/L (10-20); BUN (Urea Nitrogen) 13 mg/dL (8.9-20.6); Calc. Creatinine Clearance 155 mL/min (70-130); Calcium 8.6 mg/dL (7.8-10.44); Carbon Dioxide 24 mmol/L (22-29); Chloride 104 mmol/L (98-107); Estimated GFR 111; Glucose 94 mg/dL (70-105); Potassium 3.4 mmol/L (3.5-5.1); Sodium 137 mmol/L (136-145)
[2023-06-12] MEDS: Sacubitril 24MG/Valsartan 26 MG TAB PO SCH ×2 (08:41→20:20)
[2023-06-12] MEDS: Dronabinol 2.5 MG CAP PO SCH ×3 (08:41→20:19)
[2023-06-12] MEDS: Naloxegol 12.5 MG TAB PO SCH (08:41)
[2023-06-12] MEDS: Gabapentin 300 MG CAP PO SCH ×2 (08:42→20:20)
[2023-06-12] MEDS: Apixaban 5 MG TAB PO SCH ×2 (08:42→20:19)
[2023-06-12] MEDS: DULoxetine 60 MG CAP PO SCH ×2 (08:42→20:20)
[2023-06-12] MEDS: Hydrocortisone 10 mg Tablet PO SCH (08:42)
[2023-06-12] MEDS: Potassium Bicarbonate/Cit Ac 20 MEQ TAB PO SCH ×2 (08:43→10:41)
[2023-06-12] MEDS: oxyCODONE 5 MG TAB PO PRN ×2 (08:45→17:08)
[2023-06-12] MEDS ORDERED: Non-Formulary Item 1 EACH (Omeprazole [Omeprazole] 20 MG Capsule.Dr) PO SCH (09:00)
[2023-06-12] MEDS: Promethazine HCl 6.25 MG/5 ML Syrup PO PRN ×2 (10:33→20:18)
[2023-06-12] MEDS ORDERED: Potassium Chloride 20 MEQ TAB PO SCH (11:00)
[2023-06-12] MEDS: GUAIFENESIN SF SOLN 200 MG/10 ML UDCUP PO PRN ×2 (12:43→22:28)
[2023-06-12] MEDS: Amitriptyline HCl 25 MG TAB PO SCH (20:19)
[2023-06-12] MEDS: Famotidine 20 MG TAB PO SCH (20:20)
[2023-06-12] MEDS: Tamsulosin HCl 0.4 MG CAP PO SCH (20:21)
[2023-06-12] MEDS: LevoFLOXacin 750 mg/D5W 750 MG in Premix Bag 1 BAG IVPB SCH (22:21)
[2023-06-13] MEDS: Naloxegol 12.5 MG TAB PO SCH (08:01)
[2023-06-13] MEDS: oxyCODONE 5 MG TAB PO PRN ×3 (08:01→23:49)
[2023-06-13 09:11] LABS: #Eosinphils 0.2 thou/uL (0.0-0.7); #Monocytes 0.4 thou/uL (0.11-0.59); #Neutrophils 2.5 thou/uL (1.40-6.50); %Basophils 0.4 % (0.0-1.0); %Eosinophils 3.6 % (0.0-10.0); %Lymphocytes 30.9 % (21.0-51.0); %Monocytes 8.1 % (0.0-10.0); %Neutrophils 56.8 % (42.0-75.0); Hemoglobin 10.6 g/dL (14.0-18.0); Mean Corpuscular HGB CONC 32.1 g/dL (32.0-36.0); Mean Corpuscular Hemoglobin 31.8 pg (27.0-31.0); Mean Corpuscular Volume 99.1 fl (78.0-98.0); Mean Platelet Volume 10.7 fL (7.4-10.4); Platelet Count 205 10x3/uL (130-400); RBC Distribution Width 14.8 % (11.5-14.5); Red Blood Cell (RBC) Count 3.33 mill/uL (4.70-6.10); White Blood Cell (WBC) Count 4.5 10x3/uL (4.8-10.8)
[2023-06-13 09:12] LABS: Anion Gap 13 mmol/L (10-20); BUN (Urea Nitrogen) 11 mg/dL (8.9-20.6); Calc. Creatinine Clearance 143 mL/min (70-130); Calcium 8.7 mg/dL (7.8-10.44); Carbon Dioxide 22 mmol/L (22-29); Chloride 104 mmol/L (98-107); Estimated GFR 105; Glucose 97 mg/dL (70-105); Potassium 3.6 mmol/L (3.5-5.1); Sodium 135 mmol/L (136-145)
[2023-06-13] MEDS: Gabapentin 300 MG CAP PO SCH ×2 (09:14→21:42)
[2023-06-13] MEDS: Hydrocortisone 10 mg Tablet PO SCH (09:14)
[2023-06-13] MEDS: GUAIFENESIN SF SOLN 200 MG/10 ML UDCUP PO PRN ×2 (09:15→19:39)
[2023-06-13] MEDS: Sacubitril 24MG/Valsartan 26 MG TAB PO SCH ×2 (09:15→21:49)
[2023-06-13] MEDS: Apixaban 5 MG TAB PO SCH ×2 (09:15→21:43)
[2023-06-13] MEDS: Dronabinol 2.5 MG CAP PO SCH ×3 (09:15→21:43)
[2023-06-13] MEDS: DULoxetine 60 MG CAP PO SCH ×2 (09:15→21:42)
[2023-06-13] MEDS: Promethazine HCl 6.25 MG/5 ML Syrup PO PRN (19:18)
[2023-06-13] MEDS: Famotidine 20 MG TAB PO SCH (21:42)
[2023-06-13] MEDS: Amitriptyline HCl 25 MG TAB PO SCH (21:42)
[2023-06-13] MEDS: Tamsulosin HCl 0.4 MG CAP PO SCH (21:42)
[2023-06-13] MEDS: LevoFLOXacin 750 mg/D5W 750 MG in Premix Bag 1 BAG IVPB SCH (23:32)
[2023-06-14] MEDS: Naloxegol 12.5 MG TAB PO SCH (08:19)
[2023-06-14] MEDS: Gabapentin 300 MG CAP PO SCH ×2 (08:20→21:34)
[2023-06-14] MEDS: Apixaban 5 MG TAB PO SCH ×2 (08:20→21:32)
[2023-06-14] MEDS: DULoxetine 60 MG CAP PO SCH ×2 (08:20→21:33)
[2023-06-14] MEDS: Hydrocortisone 10 mg Tablet PO SCH (08:20)
[2023-06-14] MEDS: oxyCODONE 5 MG TAB PO PRN ×3 (08:21→21:35)
[2023-06-14] MEDS: Sacubitril 24MG/Valsartan 26 MG TAB PO SCH ×2 (09:29→21:34)
[2023-06-14] MEDS: Dronabinol 2.5 MG CAP PO SCH ×3 (09:29→21:32)
[2023-06-14] MEDS: Potassium Chloride 20 MEQ in Lactated Ringer's 1,000 ML IV SCH (12:15)
[2023-06-14] MEDS: MULTITRACE IV SCH (15:05)
[2023-06-14] MEDS: FAT EMULSION IV SCH (15:05)
[2023-06-14] MEDS: MULTIVITAMINS IV SCH (15:05)
[2023-06-14] MEDS: [UNRECOGNIZED DRUG - OTHER] IV SCH (15:05)
[2023-06-14] MEDS: Promethazine HCl 6.25 MG/5 ML Syrup PO PRN (16:01)
[2023-06-14] MEDS: Amitriptyline HCl 25 MG TAB PO SCH (21:32)
[2023-06-14] MEDS: Famotidine 20 MG TAB PO SCH (21:34)
[2023-06-14] MEDS: Tamsulosin HCl 0.4 MG CAP PO SCH (21:35)
[2023-06-14] MEDS: LevoFLOXacin 750 mg/D5W 750 MG in Premix Bag 1 BAG IVPB SCH (21:44)
[2023-06-15] MEDS: Promethazine HCl 6.25 MG/5 ML Syrup PO PRN ×3 (02:27→20:06)
[2023-06-15] MEDS: Potassium Chloride 20 MEQ in Lactated Ringer's 1,000 ML IV SCH ×2 (03:16→14:27)
[2023-06-15] MEDS: Dronabinol 2.5 MG CAP PO SCH ×3 (09:11→20:04)
[2023-06-15] MEDS: Sacubitril 24MG/Valsartan 26 MG TAB PO SCH ×2 (09:11→20:05)
[2023-06-15] MEDS: DULoxetine 60 MG CAP PO SCH ×2 (09:12→20:04)
[2023-06-15] MEDS: Gabapentin 300 MG CAP PO SCH ×2 (09:12→20:04)
[2023-06-15] MEDS: Hydrocortisone 10 mg Tablet PO SCH (09:12)
[2023-06-15] MEDS: oxyCODONE 5 MG TAB PO PRN ×2 (09:12→20:05)
[2023-06-15] MEDS: Naloxegol 12.5 MG TAB PO SCH (09:12)
[2023-06-15] MEDS: Apixaban 5 MG TAB PO SCH ×2 (09:12→20:03)
[2023-06-15 12:30] LABS: ALT (SGPT) Less than 7 U/L (8-55); AST (SGOT) 10 U/L (5-34); Albumin 3.2 g/dL (3.5-5.0); Alkaline Phosphatase 64 U/L (40-110); Anion Gap 10 mmol/L (10-20); BUN (Urea Nitrogen) 10 mg/dL (8.9-20.6); Bilirubin, Total 0.4 mg/dL (0.2-1.2); Calc. Creatinine Clearance 145 mL/min (70-130); Calcium 8.8 mg/dL (7.8-10.44); Carbon Dioxide 27 mmol/L (22-29); Chloride 102 mmol/L (98-107); Estimated GFR 107; Globulin 2.5 g/dL (2.4-3.5); Glucose 106 mg/dL (70-105); Magnesium 1.5 mg/dL (1.6-2.6); Potassium 3.8 mmol/L (3.5-5.1); Protein, Total 5.7 g/dL (6.0-8.3); Sodium 135 mmol/L (136-145)
[2023-06-15] MEDS ORDERED: Magnesium 2 GM/50 ML(in water) 2 GM in Premix Bag 1 BAG IVPB SCH (13:15)
[2023-06-15] MEDS: MULTITRACE IV SCH (14:18)
[2023-06-15] MEDS: [UNRECOGNIZED DRUG - OTHER] IV SCH (14:18)
[2023-06-15] MEDS: MULTIVITAMINS IV SCH (14:18)
[2023-06-15] MEDS: FAT EMULSION IV SCH (14:18)
[2023-06-15] MEDS: Amitriptyline HCl 25 MG TAB PO SCH (20:03)
[2023-06-15] MEDS: Famotidine 20 MG TAB PO SCH (20:04)
[2023-06-15] MEDS: Tamsulosin HCl 0.4 MG CAP PO SCH (20:05)
[2023-06-15] MEDS: LevoFLOXacin 750 mg/D5W 750 MG in Premix Bag 1 BAG IVPB SCH (22:40)
[2023-06-16] MEDS: Potassium Chloride 20 MEQ in Lactated Ringer's 1,000 ML IV SCH ×2 (02:19→16:39)
[2023-06-16] MEDS: Naloxegol 12.5 MG TAB PO SCH (08:47)
[2023-06-16] MEDS: Hydrocortisone 10 mg Tablet PO SCH (08:48)
[2023-06-16] MEDS: Gabapentin 300 MG CAP PO SCH ×2 (08:49→20:10)
[2023-06-16] MEDS: Sacubitril 24MG/Valsartan 26 MG TAB PO SCH ×2 (08:50→20:09)
[2023-06-16] MEDS: Apixaban 5 MG TAB PO SCH ×2 (08:51→20:10)
[2023-06-16] MEDS: DULoxetine 60 MG CAP PO SCH ×2 (08:52→20:10)
[2023-06-16] MEDS: Dronabinol 2.5 MG CAP PO SCH ×3 (08:53→20:11)
[2023-06-16] MEDS: oxyCODONE 5 MG TAB PO PRN ×2 (09:20→18:07)
[2023-06-16] MEDS: Promethazine HCl 6.25 MG/5 ML Syrup PO PRN ×2 (10:25→18:07)
[2023-06-16] MEDS: FAT EMULSION IV SCH (15:45)
[2023-06-16] MEDS: MULTITRACE IV SCH (15:45)
[2023-06-16] MEDS: MULTIVITAMINS IV SCH (15:45)
[2023-06-16] MEDS: [UNRECOGNIZED DRUG - OTHER] IV SCH (15:45)
[2023-06-16 20:05] VITALS: BP 111/76; TEMP 97.8
[2023-06-16] MEDS: Amitriptyline HCl 25 MG TAB PO SCH (20:09)
[2023-06-16] MEDS: Tamsulosin HCl 0.4 MG CAP PO SCH (20:09)
[2023-06-16] MEDS: Famotidine 20 MG TAB PO SCH (20:10)
== END 2023-06-16 20:30 | disposition home or self-care (01) | DRG 194 ==
LOC: ERS 21:40 → T4-A 23:48 → OBSVTOIN 06-12 17:01
PROVIDERS: ADMIT Student in an Organized Health Care Education/Training Program; ATTEND Internal Medicine
DX: J18.9 Pneumonia, unspecified organism (principal); E27.40 Unspecified adrenocortical insufficiency; E87.1 Hypo-osmolality and hyponatremia; I50.42 Chronic combined systolic (congestive) and diastolic (congestive) heart failure; I42.8 Other cardiomyopathies; I27.82 Chronic pulmonary embolism; I95.9 Hypotension, unspecified; E87.6 Hypokalemia; D64.9 Anemia, unspecified; F32.A Depression, unspecified; I11.0 Hypertensive heart disease with heart failure; Z96.611 Presence of right artificial shoulder joint; R11.0 Nausea; G89.4 Chronic pain syndrome; F41.9 Anxiety disorder, unspecified; M10.9 Gout, unspecified; Z88.1 Allergy status to other antibiotic agents; Z88.0 Allergy status to penicillin; Z88.2 Allergy status to sulfonamides; Z79.899 Other long term (current) drug therapy; Z79.01 Long term (current) use of anticoagulants; Z90.49 Acquired absence of other specified parts of digestive tract; Z95.810 Presence of automatic (implantable) cardiac defibrillator; Z98.890 Other specified postprocedural states
CPT/HCPCS: 36415; 71045; 80048; 80053; 83605; 83735; 84100; 84484; 85025; 85610; 85730; 87040; 93005; 96365; J1956; J3475; J3480; J7120; Q0167; Q0169

== ENCOUNTER 2023-07-02 14:19 | Outpatient (CLI) | payer MEDICARE, OTHER ==
[2023-07-02 16:13] LABS: #Eosinphils 0.1 10x3/uL (0.0-0.5); #Monocytes 0.4 10x3/uL (0.0-1.1); #Neutrophils 3.3 10x3/uL (1.5-8.4); %Basophils 0.6 % (0.0-2.0); %Lymphocytes 21.8 % (18.0-47.0); %Monocytes 8.4 % (0.0-10.0); Hematocrit 33.1 % (38.8-50.0); Hemoglobin 10.7 g/dL (13.5-17.5); Mean Corpuscular HGB CONC 32.3 g/dL (32.0-36.0); Mean Corpuscular Hemoglobin 31.6 pg (27.0-33.0); Mean Corpuscular Volume 97.6 fl (81.2-95.1); Mean Platelet Volume 10.4 fl (7.4-10.4); Platelet Count 339 10x3/uL (150-450); RBC Distribution Width 14.3 % (11.5-14.5); Red Blood Cell (RBC) Count 3.39 10x6/uL (4.32-5.72); White Blood Cell (WBC) Count 4.9 10x3/uL (3.5-10.5)
[2023-07-02 16:19] LABS: ALT (SGPT) 32 U/L (8-55); AST (SGOT) 19 U/L (5-34); Albumin 3.8 g/dL (3.5-5.0); Alkaline Phosphatase 67 U/L (40-110); Anion Gap 13 mmol/L (10-20); BUN (Urea Nitrogen) 23 mg/dL (8.9-20.6); Bilirubin, Total 0.5 mg/dL (0.2-1.2); Calc. Creatinine Clearance 0 mL/min (70-130); Calcium 8.6 mg/dL (7.8-10.44); Carbon Dioxide 21 mmol/L (22-29); Chloride 107 mmol/L (98-107); Estimated GFR 89; Globulin 2.7 g/dL (2.4-3.5); Glucose 92 mg/dL (70-105); Potassium 4.9 mmol/L (3.5-5.1); Protein, Total 6.5 g/dL (6.0-8.3); Sodium 136 mmol/L (136-145)
== END 2023-07-02 14:20 | disposition home or self-care (01) ==
LOC: LABBT 14:19
PROVIDERS: ATTEND Surgery
DX: Z01.818 Encounter for other preprocedural examination (principal); E46 Unspecified protein-calorie malnutrition; R11.10 Vomiting, unspecified
CPT/HCPCS: 80053; 85025; 93005; 93010

== ENCOUNTER 2023-09-05 06:59 | Outpatient (CLI) | payer MEDICARE, MEDICAID ==
[2023-09-05] MEDS ORDERED: Iopamidol 370 76% 100 ML VIAL ONE (13:32)
[2023-09-05] MEDS ORDERED: GASTROGRAFIN 30 ML BOT ONE (13:32)
== END 2023-09-05 07:00 | disposition home or self-care (01) ==
LOC: CT 06:59
PROVIDERS: ATTEND Physician Assistant Medical
DX: R10.13 Epigastric pain (principal); K94.19 Other complications of enterostomy; Z98.84 Bariatric surgery status; Z93.4 Other artificial openings of gastrointestinal tract status
CPT/HCPCS: 74177; Q9963; Q9967

== ENCOUNTER 2023-09-05 09:58 | Inpatient (IN) | payer MEDICARE, MEDICAID ==
[2023-09-05 10:51] LABS: #Eosinphils 0.2 thou/uL (0.0-0.7); #Monocytes 0.5 thou/uL (0.11-0.59); #Neutrophils 2.8 thou/uL (1.40-6.50); %Basophils 0.6 % (0.0-1.0); %Eosinophils 4.3 % (0.0-10.0); %Lymphocytes 27.2 % (21.0-51.0); %Monocytes 10.6 % (0.0-10.0); %Neutrophils 57.1 % (42.0-75.0); Hematocrit 36.2 % (42.0-52.0); Hemoglobin 11.4 g/dL (14.0-18.0); Mean Corpuscular HGB CONC 31.5 g/dL (32.0-36.0); Mean Corpuscular Hemoglobin 30.2 pg (27.0-31.0); Mean Corpuscular Volume 95.8 fl (78.0-98.0); Mean Platelet Volume 9.6 fL (7.4-10.4); Platelet Count 430 10x3/uL (130-400); RBC Distribution Width 13.2 % (11.5-14.5); Red Blood Cell (RBC) Count 3.78 mill/uL (4.70-6.10); White Blood Cell (WBC) Count 4.9 10x3/uL (4.8-10.8)
[2023-09-05] MEDS ORDERED: Morphine 4 MG/ML VIAL ONE ×2 (10:54→12:53)
[2023-09-05] MEDS ORDERED: Cefepime 2 GM VIAL ONE (10:59)
[2023-09-05] MEDS ORDERED: Sodium Chloride 0.9% 100 ML ONE (10:59)
[2023-09-05] MEDS ORDERED: Vancomycin 1 GM/200 ML (FROZEN) BAG ONE (11:07)
[2023-09-05 11:23] LABS: ALT (SGPT) 47 U/L (8-55); AST (SGOT) 48 U/L (5-34); Albumin 4.2 g/dL (3.5-5.0); Alkaline Phosphatase 84 U/L (40-110); Anion Gap 17 mmol/L (10-20); BUN (Urea Nitrogen) 13 mg/dL (8.9-20.6); Bilirubin, Total 0.6 mg/dL (0.2-1.2); Calc. Creatinine Clearance 0 mL/min (70-130); Calcium 9.4 mg/dL (7.8-10.44); Carbon Dioxide 25 mmol/L (22-29); Chloride 98 mmol/L (98-107); Estimated GFR 100; Globulin 3.3 g/dL (2.4-3.5); Glucose 86 mg/dL (70-105); Potassium 4.2 mmol/L (3.5-5.1); Protein, Total 7.5 g/dL (6.0-8.3); Sodium 136 mmol/L (136-145)
[2023-09-05] MEDS ORDERED: Ondansetron PF 4 MG/2 ML Vial IVP PRN (17:55)
[2023-09-05 18:27] VITALS: BMI 28.5
[2023-09-05] MEDS ORDERED: metroNIDAZOLE 500 MG/100 ML BAG ONE (18:44)
[2023-09-05] MEDS: metroNIDAZOLE 500 MG in Premix 1 BAG IVPB SCH (18:48)
[2023-09-05] MEDS ORDERED: Morphine 4 MG/ML VIAL SLOW IVP PRN (18:56)
[2023-09-05] MEDS ORDERED: diphenhydrAMINE 25 MG CAP PO PRN (20:04)
[2023-09-05] MEDS: Cefepime 2 GM in Sodium Chloride 0.9% 100 ML IVPB SCH (23:41)
[2023-09-05] MEDS: Famotidine/PF 20 mg/2ml Vial SLOW IVP SCH (23:41)
[2023-09-05] MEDS: Tamsulosin HCl 0.4 MG CAP PO SCH (23:42)
[2023-09-05] MEDS: Sacubitril 24MG/Valsartan 26 MG TAB PO SCH (23:42)
[2023-09-05] MEDS: Gabapentin 300 MG CAP PO SCH (23:42)
[2023-09-05] MEDS: DULoxetine 60 MG CAP PO SCH (23:42)
[2023-09-05] MEDS: oxyCODONE 5 MG TAB PO SCH (23:58)
[2023-09-06] MEDS: metroNIDAZOLE 500 MG in Premix 1 BAG IVPB SCH ×3 (03:08→17:50)
[2023-09-06 05:48] LABS: #Eosinphils 0.2 thou/uL (0.0-0.7); #Monocytes 0.6 thou/uL (0.11-0.59); #Neutrophils 1.5 thou/uL (1.40-6.50); %Basophils 0.7 % (0.0-1.0); %Eosinophils 5.7 % (0.0-10.0); %Monocytes 14.7 % (0.0-10.0); %Neutrophils 37.7 % (42.0-75.0); Hematocrit 31.1 % (42.0-52.0); Hemoglobin 9.9 g/dL (14.0-18.0); Mean Corpuscular HGB CONC 31.8 g/dL (32.0-36.0); Mean Corpuscular Hemoglobin 29.8 pg (27.0-31.0); Mean Corpuscular Volume 93.7 fl (78.0-98.0); Mean Platelet Volume 9.4 fL (7.4-10.4); Platelet Count 352 10x3/uL (130-400); Red Blood Cell (RBC) Count 3.32 mill/uL (4.70-6.10); White Blood Cell (WBC) Count 4.1 10x3/uL (4.8-10.8)
[2023-09-06 06:11] LABS: Anion Gap 12 mmol/L (10-20); BUN (Urea Nitrogen) 9 mg/dL (8.9-20.6); Calc. Creatinine Clearance 135 mL/min (70-130); Calcium 8.8 mg/dL (7.8-10.44); Carbon Dioxide 27 mmol/L (22-29); Chloride 103 mmol/L (98-107); Estimated GFR 101; Glucose 90 mg/dL (70-105); Potassium 3.9 mmol/L (3.5-5.1); Sodium 138 mmol/L (136-145)
[2023-09-06] MEDS: oxyCODONE 5 MG TAB PO SCH ×3 (06:45→17:50)
[2023-09-06] MEDS: Famotidine/PF 20 mg/2ml Vial SLOW IVP SCH ×2 (09:27→21:47)
[2023-09-06] MEDS: Gabapentin 300 MG CAP PO SCH ×2 (09:27→21:47)
[2023-09-06] MEDS: DULoxetine 60 MG CAP PO SCH ×2 (09:27→21:47)
[2023-09-06] MEDS: Apixaban 5 MG TAB PO SCH ×2 (09:27→21:48)
[2023-09-06] MEDS: Sacubitril 24MG/Valsartan 26 MG TAB PO SCH ×2 (09:28→21:48)
[2023-09-06] MEDS: Hydrocortisone 10 mg Tablet PO SCH (10:08)
[2023-09-06] MEDS: Morphine 2 MG/ML VIAL SLOW IVP PRN ×2 (10:12→21:46)
[2023-09-06] MEDS: Cefepime 2 GM in Sodium Chloride 0.9% 100 ML IVPB SCH ×2 (10:53→22:21)
[2023-09-06] MEDS: Tamsulosin HCl 0.4 MG CAP PO SCH (21:47)
[2023-09-06] MEDS: Promethazine HCl 6.25 MG/5 ML Syrup PO PRN (22:21)
[2023-09-07] MEDS: oxyCODONE 5 MG TAB PO SCH ×5 (00:26→23:55)
[2023-09-07] MEDS: metroNIDAZOLE 500 MG in Premix 1 BAG IVPB SCH ×3 (01:57→17:52)
[2023-09-07 06:03] LABS: #Basophils 0.1 thou/uL (0.0-0.2); #Eosinphils 0.3 thou/uL (0.0-0.7); #Monocytes 0.8 thou/uL (0.11-0.59); #Neutrophils 1.7 thou/uL (1.40-6.50); %Eosinophils 5.6 % (0.0-10.0); %Lymphocytes 41.2 % (21.0-51.0); %Monocytes 15.7 % (0.0-10.0); %Neutrophils 36.5 % (42.0-75.0); Hematocrit 31.1 % (42.0-52.0); Mean Corpuscular HGB CONC 32.2 g/dL (32.0-36.0); Mean Corpuscular Hemoglobin 30.4 pg (27.0-31.0); Mean Corpuscular Volume 94.5 fl (78.0-98.0); Mean Platelet Volume 9.6 fL (7.4-10.4); Platelet Count 358 10x3/uL (130-400); RBC Distribution Width 12.9 % (11.5-14.5); Red Blood Cell (RBC) Count 3.29 mill/uL (4.70-6.10); White Blood Cell (WBC) Count 4.8 10x3/uL (4.8-10.8)
[2023-09-07 06:31] LABS: Anion Gap 11 mmol/L (10-20); BUN (Urea Nitrogen) 7 mg/dL (8.9-20.6); Calc. Creatinine Clearance 135 mL/min (70-130); Calcium 8.6 mg/dL (7.8-10.44); Carbon Dioxide 28 mmol/L (22-29); Chloride 100 mmol/L (98-107); Estimated GFR 101; Glucose 84 mg/dL (70-105); Sodium 135 mmol/L (136-145)
[2023-09-07] MEDS: Apixaban 5 MG TAB PO SCH ×2 (10:00→21:24)
[2023-09-07] MEDS: Sacubitril 24MG/Valsartan 26 MG TAB PO SCH ×2 (10:00→21:24)
[2023-09-07] MEDS: Gabapentin 300 MG CAP PO SCH ×2 (10:01→21:24)
[2023-09-07] MEDS: DULoxetine 60 MG CAP PO SCH ×2 (10:02→21:25)
[2023-09-07] MEDS: Famotidine/PF 20 mg/2ml Vial SLOW IVP SCH ×2 (10:03→21:24)
[2023-09-07] MEDS: Hydrocortisone 10 mg Tablet PO SCH (10:10)
[2023-09-07] MEDS: Cefepime 2 GM in Sodium Chloride 0.9% 100 ML IVPB SCH ×2 (12:09→23:54)
[2023-09-07] MEDS: Tamsulosin HCl 0.4 MG CAP PO SCH (21:24)
[2023-09-07] MEDS: Promethazine HCl 6.25 MG/5 ML Syrup PO PRN (21:53)
[2023-09-08] MEDS: metroNIDAZOLE 500 MG in Premix 1 BAG IVPB SCH ×2 (01:05→10:17)
[2023-09-08] MEDS: oxyCODONE 5 MG TAB PO SCH ×2 (06:01→11:45)
[2023-09-08 06:23] LABS: #Eosinphils 0.2 thou/uL (0.0-0.7); #Monocytes 0.7 thou/uL (0.11-0.59); #Neutrophils 2.4 thou/uL (1.40-6.50); %Basophils 0.7 % (0.0-1.0); %Eosinophils 3.9 % (0.0-10.0); %Lymphocytes 26.1 % (21.0-51.0); %Monocytes 14.8 % (0.0-10.0); %Neutrophils 54.3 % (42.0-75.0); Hematocrit 31.6 % (42.0-52.0); Hemoglobin 10.2 g/dL (14.0-18.0); Mean Corpuscular HGB CONC 32.3 g/dL (32.0-36.0); Mean Corpuscular Hemoglobin 30.3 pg (27.0-31.0); Mean Corpuscular Volume 93.8 fl (78.0-98.0); Mean Platelet Volume 9.8 fL (7.4-10.4); Platelet Count 373 10x3/uL (130-400); RBC Distribution Width 12.9 % (11.5-14.5); Red Blood Cell (RBC) Count 3.37 mill/uL (4.70-6.10); White Blood Cell (WBC) Count 4.4 10x3/uL (4.8-10.8)
[2023-09-08 07:24] LABS: Anion Gap 14 mmol/L (10-20); BUN (Urea Nitrogen) 7 mg/dL (8.9-20.6); Calc. Creatinine Clearance 137 mL/min (70-130); Calcium 8.7 mg/dL (7.8-10.44); Carbon Dioxide 26 mmol/L (22-29); Chloride 100 mmol/L (98-107); Estimated GFR 102; Glucose 103 mg/dL (70-105); Potassium 3.6 mmol/L (3.5-5.1); Sodium 136 mmol/L (136-145)
[2023-09-08] MEDS: Famotidine/PF 20 mg/2ml Vial SLOW IVP SCH (08:32)
[2023-09-08] MEDS: Apixaban 5 MG TAB PO SCH (08:32)
[2023-09-08] MEDS: Hydrocortisone 10 mg Tablet PO SCH (08:32)
[2023-09-08] MEDS: Gabapentin 300 MG CAP PO SCH (08:32)
[2023-09-08] MEDS: Sacubitril 24MG/Valsartan 26 MG TAB PO SCH (08:33)
[2023-09-08] MEDS: DULoxetine 60 MG CAP PO SCH (08:33)
[2023-09-08] MEDS: Cefepime 2 GM in Sodium Chloride 0.9% 100 ML IVPB SCH (11:46)
[2023-09-08 17:08] VITALS: BP 104/66; TEMP 97.5
== END 2023-09-08 18:26 | disposition home or self-care (01) | DRG 920 ==
LOC: ERS 09:58 → ERHOLD 17:29 → OBSVTOIN 17:55 → T4-B 20:05
PROVIDERS: ADMIT Internal Medicine; ATTEND Internal Medicine
DX: T85.79XA Infection and inflammatory reaction due to other internal prosthetic devices, implants and grafts, initial encounter (principal); E27.40 Unspecified adrenocortical insufficiency; L02.211 Cutaneous abscess of abdominal wall; I50.42 Chronic combined systolic (congestive) and diastolic (congestive) heart failure; Z95.5 Presence of coronary angioplasty implant and graft; Z95.0 Presence of cardiac pacemaker; I11.0 Hypertensive heart disease with heart failure; Z86.711 Personal history of pulmonary embolism; F32.A Depression, unspecified; Z88.1 Allergy status to other antibiotic agents; Z88.0 Allergy status to penicillin; Z88.2 Allergy status to sulfonamides; Z79.899 Other long term (current) drug therapy; Z90.49 Acquired absence of other specified parts of digestive tract; F41.9 Anxiety disorder, unspecified; G89.29 Other chronic pain; N40.0 Benign prostatic hyperplasia without lower urinary tract symptoms
CPT/HCPCS: 36415; 36416; 74018; 74177; 80048; 80053; 83605; 85025; 87040; 87070; 87077; 87186; 87205; 94760; 96365; 96367; 96375; 96376; J0692; J2270; J2272; J2405; J3370-JW; J3490; Q0169; Q9963; Q9967; S0028

== ENCOUNTER 2024-09-06 09:58 | Day surgery (SDC) | payer MEDICARE, MEDICAID ==
[2024-09-06] MEDS: FOLIC ACID IV SCH (11:13)
[2024-09-06] MEDS: MULTIVITAMINS IV SCH (11:13)
[2024-09-06] MEDS: THIAMINE HCL IV SCH (11:13)
[2024-09-06] MEDS: [UNRECOGNIZED DRUG - OTHER] IV SCH (11:13)
[2024-09-06 12:32] VITALS: BP 103/65; TEMP 98.3
== END 2024-09-06 14:11 | disposition home or self-care (01) ==
LOC: ONC/OP 09:58
PROVIDERS: ATTEND Family Medicine
DX: E86.0 Dehydration (principal); K90.9 Intestinal malabsorption, unspecified; Z88.0 Allergy status to penicillin; Z88.2 Allergy status to sulfonamides
CPT/HCPCS: 96365; 96366; J3411; J7030